=== PATIENT | male | born 1970 | race Caucasian/White ===

== ENCOUNTER 2022-12-31 13:29 | Inpatient (IN) | payer BC, MEDICAID, SELFPAY ==
[2022-12-31] VITALS (11 sets, daily range): BP systolic 105–131; BP diastolic 65–87; PULSE 108–165; RESP 16–24; TEMP 36.4–37; O2SAT 90–98; BMI 30.2
--- NOTE | ~2022-12-31 | MR_ITS ---
EXAMINATION: MR head/brain wo con MR/MR head/brain wo con FINDINGS/IMPRESSION: The ordered MRI examination could not be completed due to claustrophobia. Only the localizer, sagittal T1 FLAIR and axial DWI sequences were performed. Limited sequences demonstrate no diffusion hyperintensity to suggest acute infarct. No significant mass effect or herniation pattern. The midline structures are unremarkable. Partially imaged cervical spondylosis with bilateral facet arthropathy. The patient may be able to undergo the MRI examination at a later time after receiving pre-treatment for claustrophobia.
--- NOTE | ~2022-12-31 | CT_ITS ---
EXAMINATION: CT ANGIOGRAM OF THE CHEST WITH CONTRAST (CT PULMONARY ANGIOGRAM FOR PE) CLINICAL INFORMATION: Reason for Exam acute hypoxemic respiratory failure COMPARISON: Chest radiograph from 01/01/2023 TECHNIQUE: Prior to contrast administration, noncontrast localization images were obtained. Subsequently, multidetector volumetric imaging was performed from the thoracic inlet to below the diaphragms following the administration of 65 mL Omnipaque 350 intravenous contrast. No contrast reaction reported. Sagittal, coronal, and MIP oblique sagittal reformatted images were obtained on the CT workstation, uploaded to PACS, and reviewed. This CT examination was performed using dose optimization techniques as appropriate, variously including the following: *Automated exposure control *Adjustment of mA and/or kV according to patient size (this includes techniques or standardized protocols for targeted exams where dose is matched to indication/reason for exam; i.e. extremities or head) *Use of iterative reconstruction technique DLP: Total exam dose-length product 466 mGy-cm FINDINGS: LUNGS AND PLEURA: Smooth thickening of interlobular septa in both lungs is predominantly observed in lower lobes and consistent with interstitial inflammation and/or interstitial edema. Patchy groundglass opacity is present in the right upper lobe. Also, small focus of groundglass attenuation is present in the anterior lingula. A few small noncalcified nodules of less than 0.5 cm size are present within the left upper lobe and lingula. Based on Fleischner Society guidelines, chest CT follow-up is not recommended in a low risk patient. The main pulmonary abnormalities are in the lower lobes where findings include patchy bilateral consolidation and intermixed groundglass attenuation. There is associated thickening of bronchial barbosa and/or peribronchial interstitium. A trace left pleural effusion is present. No pneumothorax. QUALITY OF STUDY/CONTRAST BOLUS: Satisfactory. PULMONARY ARTERIES: The pulmonary arteries are normal in size. No embolic filling defects within the main, lobar or segmental vessels. OTHER CARDIOVASCULAR: The heart size is normal. No pericardial effusion. There is atherosclerotic calcification of the left anterior descending coronary artery. Mild atherosclerosis of the thoracic aorta without aneurysm or dissection. MEDIASTINUM/LOWER NECK: The esophagus and visualized portion of the thyroid gland are unremarkable. No mediastinal mass. LYMPHATICS: No pathologic sized axillary, hilar or mediastinal lymph nodes. UPPER ABDOMEN: There is hepatosplenomegaly. The liver is diffusely hypodense, consistent with steatosis or steatohepatitis. Recommend correlation with liver function tests. Adrenal glands are normal. OSSEOUS STRUCTURES: Mild levoscoliosis of the cervical and upper thoracic spine. Mild spondylosis of the thoracic spine. CT/CT angio chest PE protocol IMPRESSION: * No evidence of pulmonary embolism. * Patchy consolidation and intermixed groundglass attenuation in lower lobes is consistent with infectious/inflammatory process. Consider possibility of aspiration pneumonia. Trace left pleural effusion is present. * Smooth thickening of interlobular septa is consistent with interstitial inflammation and/or interstitial edema. * Hepatosplenomegaly and diffuse hepatic steatosis or steatohepatitis.
--- NOTE | ~2022-12-31 | XR_ITS ---
EXAMINATION: PORTABLE CHEST 1 VIEW CLINICAL INFORMATION: afib. COMPARISON: 11/07/2012. TECHNIQUE: Portable frontal view of the chest was obtained. FINDINGS: The lungs are hypoexpanded with minimal basilar atelectasis. Central vascular prominence likely related to the degree of hypoexpansion. No overt edema. No significant effusion or pneumothorax. Cardiac and mediastinal silhouettes within normal limits for the technique. No acute bony abnormality. XR/XR chest 1V IMPRESSION: Hypoexpanded with minimal basilar atelectasis. Central vascular prominence likely related to the degree of hypoexpansion.
--- NOTE | ~2022-12-31 | XR_ITS ---
EXAMINATION: XR CHEST CLINICAL INFORMATION: Hypoxia COMPARISON: Chest radiographs 12/31/2022, 11/07/2012 TECHNIQUE: Portable upright AP view of the chest was obtained. FINDINGS: There are low lung volumes with inspiration to the right posterior seventh rib. The heart is normal in size. There is no pneumothorax or pleural reaction or definite effusion. There is fullness right hilar vasculature with question of infrahilar opacity. There is no oligemia on the left. No lobar or segmental airspace consolidation. XR/XR chest 1V IMPRESSION: - Low lung volumes. - Fullness right hilar vasculature with question of right infrahilar opacity. No oligemia on left. - No lobar or segmental airspace consolidation. No pneumothorax. No effusion.
--- NOTE | ~2022-12-31 | CT_ITS ---
EXAMINATION: CT HEAD WITHOUT CONTRAST CLINICAL INFORMATION: History of fall. COMPARISON: None available. TECHNIQUE: Contiguous axial imaging was performed from the skull base to vertex without intravenous administration of contrast. This CT examination was performed using dose optimization techniques as appropriate, variously including the following: *Automated exposure control *Adjustment of mA and/or kV according to patient size (this includes techniques or standardized protocols for targeted exams where dose is matched to indication/reason for exam; i.e. extremities or head) *Use of iterative reconstruction technique DLP: 677 mGy-cm FINDINGS: The brain parenchyma has normal attenuation. The estrada-white matter differentiation is well preserved. No evidence of an acute major vascular territory infarction. No intracranial hemorrhage, extra-axial fluid collection, focal mass effect or midline shift. The ventricles have normal size and configuration; no hydrocephalus. The brainstem and cerebellum have a normal appearance. The cerebellar tonsils are in normal position. The visualized paranasal sinuses, mastoid air cells and middle ear cavities are well aerated. The orbits and globes are unremarkable. The temporomandibular joints are normal. A very small lipoma of the frontal scalp measures 0.2 cm AP. There is a small linear opacity in the right lateral scalp soft tissues (image 40, series 2). No calvarial fracture. CT/CT head/brain wo IV con IMPRESSION: * No evidence of calvarial fracture, intracranial hemorrhage or other acute intracranial pathology. * There is a small linear opacity in the right lateral scalp soft tissues, possibly representing minimal hemorrhage from trauma (image 40, series 2).
--- NOTE | ~2022-12-31 | CT_ITS ---
EXAMINATION: CT HEAD WITHOUT CONTRAST CLINICAL INFORMATION: Syncope, seizure. COMPARISON: CT head 12/31/2022. TECHNIQUE: Contiguous axial imaging was performed from the skull base to vertex without intravenous administration of contrast. This CT examination was performed using dose optimization techniques as appropriate, variously including the following: *Automated exposure control *Adjustment of mA and/or kV according to patient size (this includes techniques or standardized protocols for targeted exams where dose is matched to indication/reason for exam; i.e. extremities or head) *Use of iterative reconstruction technique DLP: 817 mGy-cm FINDINGS: There is no evidence of acute intracranial hemorrhage or edematous territorial infarction. A few foci of hypoattenuation in the periventricular and deep white matter are consistent with mild microangiopathy. De Jesus-white matter differentiation is preserved. Proportional prominence of the ventricles and sulcal spaces. No evidence for obstructive hydrocephalus. No abnormal mass effect or midline shift. No extra-axial fluid collections. No acute soft tissue or osseous abnormalities. Partial opacification of several ethmoid air cells and moderate mucosal thickening of the sphenoidal sinuses. The mastoids and middle ear cavities are clear. CT/CT head/brain wo IV con IMPRESSION: No evidence of acute intracranial hemorrhage or edematous territorial infarction. Paranasal sinus disease, correlate clinically.
--- NOTE | 2022-12-31 13:31 | ECG_ITS ---
Test Reason : od Blood Pressure : / mmHG Vent. Rate : 143 BPM Atrial Rate : 000 BPM P-R Int : 000 ms QRS Dur : 100 ms QT Int : 310 ms P-R-T Axes : 000 083 -32 degrees QTc Int : 478 ms Atrial fibrillation with rapid ventricular response Nonspecific ST abnormality Abnormal QRS-T angle, consider primary T wave abnormality Abnormal ECG When compared with ECG of 07-NOV-2012 12:15, Atrial fibrillation has replaced Sinus rhythm Vent. rate has increased BY 63 BPM Referred By: Generic ED Physician Electronically Signed By:Melecio Cesar
--- NOTE | 2022-12-31 13:39 | ED.AMS ---
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 his walked about few yd outside the house was found by bystanders unresponsive side of the road CPR started 8 mg of Narcan given and patient woke up agitated and confused denies any use of drugs cardiac monitor technician showed AFib with heart rate in 140s patient denies any chest pain unknown head injury Related Data Home Medications Medication Instructions Recorded Confirmed fenofibrate 54 mg tablet 54 mg PO DAILY 12/31/22 12/31/22 metformin 1,000 mg tablet 1,000 mg PO BID 12/31/22 12/31/22 naproxen sodium 220 mg tablet 440 mg PO BID PRN Pain 12/31/22 12/31/22 (Aleve) propranolol 10 mg tablet 10 mg PO BID PRN chest pain / 12/31/22 12/31/22 anxiety rosuvastatin 20 mg tablet 20 mg PO BEDTIME 12/31/22 12/31/22 sertraline 50 mg tablet 50 mg PO DAILY 12/31/22 12/31/22 testosterone cypionate 200 mg/mL 100 mg IM QWEEK 12/31/22 12/31/22 intramuscular kit Allergies Allergy/AdvReac Type Severity Reaction Status Date / Time No Known Allergies Allergy Verified 12/31/22 13:38 [No Known Allergies*] Review of Systems Review of Systems: Yes Unobtainable due to mental status PMFSH Social History Social History Alcohol intake: never Smoked in Last 30 Days: No Substance Use Type: Former Substance User Advance Directives: No Advance Directives Information Provided: No Physical Exam ED Vital Signs: Vital Signs - 24 hr 12/31/22 13:38 12/31/22 14:00 12/31/22 15:17 Temperature 98.6 F 97.6 F Pulse Rate 143 H 108 H 117 H Respiratory Rate 20 22 H 20 Blood Pressure 127/85 118/75 121/78 Pulse Oximetry 98 94 98 Oxygen Delivery Method Room Air Nasal Cannula Nasal Cannula Oxygen Flow Rate 2 4 12/31/22 15:49 Temperature Pulse Rate 137 H Respiratory Rate 22 H Blood Pressure Pulse Oximetry Oxygen Delivery Method Oxygen Flow Rate BMI result Body Mass Index 30.2 Appearance: Alert. Oriented X3. No acute distress. Eyes: PERRLA, No Nystagmus HEENT: Pharynx normal. Oral Mucosa moist ATNC Neck: Normal inspection. Neck supple. CVS: Tachycardic irregularly irregular no murmur or rub. Pulses normal. Respiratory: No respiratory distress. Equal air entry bilateral, no wheezing/rales/rhonchi Abdomen: Soft and nontender. Bowel sounds are present, no mass palpable, no CVA tenderness Skin: Skin warm and dry. Normal skin color. Normal skin turgor. Extremities: No lower extremity edema. No calf tenderness Neuro: Oriented X 3. No motor deficit. No sensory deficit.No cerebellar signs , cranial nerves II-XII intact Medications Administered Generic Name Dose Route Start Last Admin Trade Name Freq PRN Reason Stop Dose Admin Diltiazem HCl 125 mg/ Sodium 125 mls @ 0 mls/hr 12/31/22 15:30 12/31/22 16:10 Chloride IVCONT 10 mg/hr .Q0M KRISTAL 10 mls/hr Administration Protocol Per Protocol Lactated Ringer's 1,000 mls @ 80 mls/hr 12/31/22 16:00 12/31/22 16:10 Lr IVCONT 80 mls/hr .[id number] KRISTAL Administration Sodium Chloride 3 ml 12/31/22 16:00 12/31/22 16:11 0.9 % Sodium Chloride Flush 3 Ml Syringe IVFLUSH 3 ml QSHIFT KRISTAL Administration Discontinued Medications Generic Name Dose Route Start Last Admin Trade Name Freq PRN Reason Stop Dose Admin Diltiazem HCl 20 mg 12/31/22 13:44 12/31/22 14:14 Diltiazem Hcl 50 Mg/10 Ml Vial IVPUSH 12/31/22 13:45 20 mg STAT STA Administration Sodium Chloride 1,000 mls @ 999 mls/hr 12/31/22 13:41 12/31/22 15:09 Ns IV 12/31/22 14:41 Infused .Q1H1M ONE Infusion Medical Decision Making Medical Decision Making MDM Narrative: Patient with new onset of AFib with rapid ventricular rate versus substance abuse came here for occult loss of consciousness likely substance abuse responded to Narcan. Patient urine drug screen is pending. Awaiting for CT scan of the head. cardiac monitor technician showed AFib partially responded to IV Cardizem and started on Cardizem drip pain will admit patient to hospitalist service patient Dr. Ayers aware of checking CT scan of the head and urine drug screen patient does have chads score of 2 with remote history of coronary artery disease will start on Eliquis CT scan the head seen by myself was negative for bleed Differential Diagnosis Opiate abuse /acute coronary syndrome/acute PE Consult Healthcare Provider Management of the patient was discussed with: Hospitalist Lab Data [facility] Lab Attestation statement: I reviewed the patient's lab results. 12/31/22 13:59 12/31/22 13:59 Labs: Lab Results 12/31/22 12/31/22 12/31/22 Range/Units 13:59 13:59 13:59 WBC 9.7 (4.8-10.8) X10*3/uL RBC 4.78 (4.60-5.80) X10*6/uL Hgb 15.1 (14.0-18.0) g/dl Hct 41.4 L (42.0-52.0) % MCV 86.6 (80.0-98.0) fL MCH 31.6 (27.0-33.0) pg MCHC 36.5 H (31.0-36.0) g/dl RDW 12.1 (11.0-16.0) % Plt Count 250 (160-400) X10*3/uL MPV 10.4 (9.4-12.4) fL Immature Gran % (Auto) 1.1 H (0.0-0.4) % Neut % (Auto) 57.3 (45-73) % Lymph % (Auto) 32.4 (20-40) % [place] % (Auto) 7.2 (2-11) % Eos % (Auto) 1.4 (0-4) % Baso % (Auto) 0.6 (0-2) % Lymph # (Auto) 3.2 (1.2-4.9) X10*3/uL [place] # (Auto) 0.7 (0.1-1.2) X10*3/uL Eos # (Auto) 0.1 (0.0-0.4) X10*3/uL Baso # (Auto) 0.1 (0.0-0.2) X10*3/uL Abs Immat Gran (auto) 0.11 H (0.00-0.03) X10*3/uL Absolute Neuts (auto) 5.6 (2.0-8.3) x10*3/uL Absolute Nucleated RBC 0.000 (0.0-0.012) X10*3/uL Nucleated RBC % (auto) 0.0 (0.0-0.2) /100WBC PT 10.0 (10.0-13.1) SEC INR 0.9 (0.9-1.1) APTT 25.1 L (26.0-36.4) SEC Sodium 139 (135-145) mmol/L Potassium 3.6 (3.3-5.1) mmol/L Chloride 102 (96-108) mmol/L Carbon Dioxide 21 L (22-29) mmol/L Anion Gap 20 (12-20) BUN 19 H (9-16) mg/dL Creatinine 1.00 (0.5-1.4) mg/dL Estim Creat Clear Calc 96.1 Estimated GFR > 60 Random Glucose 270 H (60-115) mg/dL Calcium 9.2 (8.4-10.2) mg/dL Magnesium 2.0 (1.6-2.6) mg/dL Total Bilirubin 0.7 (0.0-1.0) mg/dL AST 214 H (5-37) U/L ALT 94 H (0-40) U/L Alkaline Phosphatase 65 (39-117) U/L Troponin I High Sens (<3.5-35.0) ng/L Total Protein 8.2 H (6.5-8.0) g/dL Albumin 4.4 (3.5-5.0) g/dL Urine Opiates Screen (Not Detect) Urine Fentanyl Screen (Not Detect) Ur Barbiturates Screen (Not Detect) Ur Phencyclidine Scrn (Not Detect) Ur Amphetamines Screen (Not Detect) U Benzodiazepines Scrn (Not Detect) Urine Cocaine Screen (Not Detect) U Marijuana (THC) Screen (Not Detect) Ethyl Alcohol < 10 mg/dL 12/31/22 12/31/22 Range/Units 13:59 15:19 WBC (4.8-10.8) X10*3/uL RBC (4.60-5.80) X10*6/uL Hgb (14.0-18.0) g/dl Hct (42.0-52.0) % MCV (80.0-98.0) fL MCH (27.0-33.0) pg MCHC (31.0-36.0) g/dl RDW (11.0-16.0) % Plt Count (160-400) X10*3/uL MPV (9.4-12.4) fL Immature Gran % (Auto) (0.0-0.4) % Neut % (Auto) (45-73) % Lymph % (Auto) (20-40) % [place] % (Auto) (2-11) % Eos % (Auto) (0-4) % Baso % (Auto) (0-2) % Lymph # (Auto) (1.2-4.9) X10*3/uL [place] # (Auto) (0.1-1.2) X10*3/uL Eos # (Auto) (0.0-0.4) X10*3/uL Baso # (Auto) (0.0-0.2) X10*3/uL Abs Immat Gran (auto) (0.00-0.03) X10*3/uL Absolute Neuts (auto) (2.0-8.3) x10*3/uL Absolute Nucleated RBC (0.0-0.012) X10*3/uL Nucleated RBC % (auto) (0.0-0.2) /100WBC PT (10.0-13.1) SEC INR (0.9-1.1) APTT (26.0-36.4) SEC Sodium (135-145) mmol/L Potassium (3.3-5.1) mmol/L Chloride (96-108) mmol/L Carbon Dioxide (22-29) mmol/L Anion Gap (12-20) BUN (9-16) mg/dL Creatinine (0.5-1.4) mg/dL Estim Creat Clear Calc Estimated GFR Random Glucose (60-115) mg/dL Calcium (8.4-10.2) mg/dL Magnesium (1.6-2.6) mg/dL Total Bilirubin (0.0-1.0) mg/dL AST (5-37) U/L ALT (0-40) U/L Alkaline Phosphatase (39-117) U/L Troponin I High Sens < 2.7 (<3.5-35.0) ng/L Total Protein (6.5-8.0) g/dL Albumin (3.5-5.0) g/dL Urine Opiates Screen POSITIVE H (Not Detect) Urine Fentanyl Screen POSITIVE H (Not Detect) Ur Barbiturates Screen Not Detected (Not Detect) Ur Phencyclidine Scrn Not Detected (Not Detect) Ur Amphetamines Screen Not Detected (Not Detect) U Benzodiazepines Scrn Not Detected (Not Detect) Urine Cocaine Screen Not Detected (Not Detect) U Marijuana (THC) Screen POSITIVE H (Not Detect) Ethyl Alcohol mg/dL Independent Interpretation I performed an independent interpretation of an: EKG Interpretation: Atrial fibrillation with rapid ventricular rate of [address]-T changes no acute ischemia no previous EKG to compare Discharge Plan Discharge Clinical Impression: Drug overdose, Atrial fibrillation with rapid ventricular response Patient Disposition: Admitted As Inpatient
[2022-12-31 14:03] LABS: MANUAL DIFF FLAG NO
[2022-12-31 14:05] LABS: Basophils Absolute Auto 0.1 X10*3/uL (0.0-0.2); Basophils Percent Auto 0.6 % (0-2); Eosinophils Absolute Auto 0.1 X10*3/uL (0.0-0.4); Eosinophils Percent Auto 1.4 % (0-4); Hematocrit 41.4 % (42.0-52.0); Hemoglobin 15.1 g/dl (14.0-18.0); Imm Gran Abs Auto 0.11 X10*3/uL (0.00-0.03); Imm Gran Pct Auto 1.1 % (0.0-0.4); Lymphocytes Absolute Auto 3.2 X10*3/uL (1.2-4.9); Lymphocytes Percent Auto 32.4 % (20-40); Mean Corpuscular HGB Conc 36.5 g/dl (31.0-36.0); Mean Corpuscular Hemoglobin 31.6 pg (27.0-33.0); Mean Corpuscular Volume 86.6 fL (80.0-98.0); Mean Platelet Volume 10.4 fL (9.4-12.4); Monocytes Absolute Auto 0.7 X10*3/uL (0.1-1.2); Monocytes Percent Auto 7.2 % (2-11); Neutrophils Absolute Auto 5.6 x10*3/uL (2.0-8.3); Neutrophils Percent Auto 57.3 % (45-73); Platelet Count 250 X10*3/uL (160-400); Red Blood Count 4.78 X10*6/uL (4.60-5.80); Red Cell Distribution Width 12.1 % (11.0-16.0); White Blood Count 9.7 X10*3/uL (4.8-10.8)
[2022-12-31] MEDS: 0.9 % Sodium Chloride 1,000 ML 999 ML IV (14:08)
[2022-12-31 14:10] LABS: INTERNATIONAL NORM RATIO 0.9 (0.9-1.1)
[2022-12-31 14:12] LABS: Partial Thromboplastin Time 25.1 SEC (26.0-36.4)
[2022-12-31] MEDS: dilTIAZem HCL 50 MG/10 ML VIAL 20 MG IVPUSH (14:14)
--- NOTE | 2022-12-31 14:25 | PC.NURSE ---
patient wakes to verbal stimulus, denying si/hi, pt denying drug/etoh use, finance advisor applied afib on monitor, ekg performed, iv inserted, labs drawn, pt vomited x2, pt diaphoretic as well, family at bedside, call guerrero within reach, will continue to monitor.
[2022-12-31 14:27] LABS: Alanine Aminotransferase 94 U/L (0-40); Albumin Level 4.4 g/dL (3.5-5.0); Alkaline Phosphatase 65 U/L (39-117); Anion Gap 20 (12-20); Aspartate Amino Transferase 214 U/L (5-37); Bilirubin Total 0.7 mg/dL (0.0-1.0); Blood Urea Nitrogen 19 mg/dL (9-16); Calcium 9.2 mg/dL (8.4-10.2); Carbon Dioxide 21 mmol/L (22-29); Chloride 102 mmol/L (96-108); Creatinine Clr Calc Pharmacy 96.1; Estimated Glomerular Filt Rate > 60; Ethanol < 10 mg/dL; Glucose Random 270 mg/dL (60-115); Potassium 3.6 mmol/L (3.3-5.1); Sodium 139 mmol/L (135-145); Total Protein 8.2 g/dL (6.5-8.0)
[2022-12-31 14:30] LABS: Troponin-I High Sensitivity < 2.7 ng/L (<3.5-35.0)
--- NOTE | 2022-12-31 14:43 | PC.NURSE ---
pt to radiology
--- NOTE | 2022-12-31 15:15 | PC.NURSE ---
straight cath performed, urine being sent by tech
--- NOTE | 2022-12-31 15:22 | MHC.EDTECH ---
THIS PCT ASSUMED CARE OF PT AT 1500 ,VITALS SIGN TAKEN ,PT SLEEPING ,URINE SAMPLE SENT TO LAB ,PT AND MOM AT BEDSIDE .
--- NOTE | 2022-12-31 15:57 | PHA.MEDREC ---
Pharmacy Consult ? Medication Reconciliation Pharmacy has completed the medication reconciliation. Spoke to patient's to confirm meds. states patient takes testosterone 200mg/mL 0.5 mL weekly, and pharmacy confirms. Also states that patient was on ASA 81mg 2-3 months ago, but has not been prescribed it since and therefore has not been taking it.
[2022-12-31 16:07] LABS: Amphetamine Screen Urine Not Detected (Not Detect); Barbiturates, Urine Not Detected (Not Detect); Benzodiazepines Screen Urine Not Detected (Not Detect); Cannabinoid Screen Urine POSITIVE (Not Detect); Cocaine Screen Urine Not Detected (Not Detect); Fentanyl, urine POSITIVE (Not Detect); Opiate Screen Urine POSITIVE (Not Detect); Phencyclidine Screen Urine Not Detected (Not Detect)
[2022-12-31] MEDS: Lactated Ringers 1,000 ML 80 ML IVCONT (16:10)
[2022-12-31] MEDS: dilTIAZem HCL 125 MG in 0.9 % Sodium Chloride 100 ML 10 MG IVCONT (16:10)
--- NOTE | 2022-12-31 16:10 | ECG_ITS ---
Test Reason : CHEST PAIN Blood Pressure : / mmHG Vent. Rate : 128 BPM Atrial Rate : 000 BPM P-R Int : 000 ms QRS Dur : 086 ms QT Int : 320 ms P-R-T Axes : 000 099 -23 degrees QTc Int : 467 ms Atrial fibrillation with rapid ventricular response Rightward axis Abnormal QRS-T angle, consider primary T wave abnormality Abnormal ECG When compared with ECG of 31-DEC-2022 13:38, No significant change was found Referred By: Yudi Mendez Electronically Signed By:Melecio Cesar
[2022-12-31] MEDS: 0.9 % Sodium Chloride Flush 3 ML SYRINGE IVFLUSH (16:11)
--- NOTE | 2022-12-31 16:15 | PC.NURSE ---
second iv started, repeat ekg performed- pt still afib on monitor, cardizem drip started at 10, LR started per order, will continue to monitor.
[2022-12-31 16:24] LABS: Thyroid Stimulating Hormone 4.61 uIU/mL (0.32-4.0)
--- NOTE | 2022-12-31 16:32 | PM.IMHP ---
History of Present Illness Date of Service: 12/31/22 Attending physician on admission: Remy Judge Chief Complaint: Unresponsive episode. Patient seems generalized weak and somewhat confused unable to provide much history, information was taken from his . 52-year-old male IV drug use in the past-as per 7year was clean, history of hypercholesteremia, diabetes, CAD-he came from [place] for a wedding in his family, as per today she went for hair dressing and she called him to pick her up. He said to his is in bathroom and he is coming soon. After some time waiting the called back but nobody picked up so she talked to her kids -they told her that they are waiting for their father in the car outside their apartment. Subsequently patient was found outside the apartment by bystanders unresponsive-received CPR unclear duration, also received 8 mg of Narcan-subsequently patient woke up got agitated and confused, as per the family there is the needle kirk in the left antecubital area which was not there before. In the hospital patient was found to have AFib with RVR. Patient with currently seems weak and confused unable to give history, easily awake. Follows simple commands EKG, troponin, chest x-ray and CT head seems negative( has some scalp up mild hematoma question). In ED patient received diltiazem drip, also Eliquis ordered in ed. also received IV fluid Urine drug screen: Positive for fentanyl, opioids, marijuana Patient could able to say only soreness in the muscle area of the chest both sides, otherwise resting comfortably, but slightly sleepy. We have added additional dose of Narcan. Review of Systems Review of Systems: as above. [facility] Social History (Updated 12/31/22 @ 16:46 by Remy Judge MD) Household Members: Spouse Alcohol intake: former Patient Tobacco Use Status: Former Tobacco user Smoked in Last 30 Days: No Substance Use Type: Former Substance User Advance Directives: No Advance Directives Information Provided: No Meds Allergies Allergy/AdvReac Type Severity Reaction Status Date / Time No Known Allergies Allergy Verified 12/31/22 13:38 [No Known Allergies*] Active Medications: Current Medications Fenofibrate (Fenofibrate 54 Mg Tablet) 54 mg PO DAILY KRISTAL Diltiazem HCl 125 mg/ Sodium (Chloride) 125 mls @ 0 mls/hr IVCONT .Q0M [facility]; Protocol Last Admin: 12/31/22 16:10 Dose: 10 mg/hr, 10 mls/hr Lactated Ringer's (Lr) 1,000 mls @ 80 mls/hr IVCONT .[id number] [facility] Last Admin: 12/31/22 16:10 Dose: 80 mls/hr Pharmacy Consult (Consult Rx Perform Med Rec) 1 each MISCELLANE ONCE PRN PRN Reason: Consult order Sertraline HCl (Sertraline Hcl 50 Mg Tablet) 50 mg PO DAILY [facility] Sodium Chloride (0.9 % Sodium Chloride Flush 3 Ml Syringe) 3 ml IVFLUSH QSHIFT [facility] Last Admin: 12/31/22 16:11 Dose: 3 ml Home Medications Medication Instructions Recorded Confirmed Last Taken Type fenofibrate 54 mg tablet 54 mg PO DAILY 12/31/22 12/31/22 12/30/22 History metformin 1,000 mg tablet 1,000 mg PO BID 12/31/22 12/31/22 12/30/22 History naproxen sodium 220 mg tablet 440 mg PO BID PRN Pain 12/31/22 12/31/22 Unknown History (Aleve) propranolol 10 mg tablet 10 mg PO BID PRN chest pain / 12/31/22 12/31/22 12/30/22 History anxiety rosuvastatin 20 mg tablet 20 mg PO BEDTIME 12/31/22 12/31/22 12/30/22 History sertraline 50 mg tablet 50 mg PO DAILY 12/31/22 12/31/22 12/30/22 History testosterone cypionate 200 mg/mL 100 mg IM QWEEK 12/31/22 12/31/22 12/28/22 History intramuscular kit Physical Exam Vital Signs and Narrative: Vital Signs: Last Vital Signs Temp 97.6 F 12/31/22 15:17 Pulse 137 H 12/31/22 15:49 Resp 22 H 12/31/22 15:49 BP 121/78 12/31/22 15:17 Pulse Ox 98 12/31/22 15:17 O2 Del Method Nasal Cannula 12/31/22 15:17 O2 Flow Rate 4 12/31/22 15:17 BMI result Body Mass Index 30.2 Appearance: awake ,plesantly confused ,follows simple commands Eyes: Pupils small ,reactive.? Sclera nonicteric.? ENT: Pharynx normal.? Moist mucous membranes. cvs: rrr, [id number] , no murmur res: clear to auscultation ,no rhonchii or wheezing abd: no rebound or guarding ,nt, bs present. ext pulses present , no cyanosis . neuro: axo3 , nonfocal. Results Labs 12/31/22 13:59 12/31/22 13:59 Labs: Laboratory Results - last 24 hr 12/31/22 12/31/22 12/31/22 13:59 13:59 13:59 MCV 86.6 MCH 31.6 MCHC 36.5 H RDW 12.1 Plt Count 250 MPV 10.4 Immature Gran % (Auto) 1.1 H Neut % (Auto) 57.3 Lymph % (Auto) 32.4 [place] % (Auto) 7.2 Eos % (Auto) 1.4 Baso % (Auto) 0.6 Lymph # (Auto) 3.2 [place] # (Auto) 0.7 Eos # (Auto) 0.1 Baso # (Auto) 0.1 Abs Immat Gran (auto) 0.11 H Absolute Neuts (auto) 5.6 Absolute Nucleated RBC 0.000 Nucleated RBC % (auto) 0.0 PT 10.0 INR 0.9 APTT 25.1 L Anion Gap 20 Estim Creat Clear Calc 96.1 Estimated GFR > 60 Random Glucose 270 H Calcium 9.2 Magnesium 2.0 Total Bilirubin 0.7 AST 214 H ALT 94 H Alkaline Phosphatase 65 Troponin I High Sens Total Protein 8.2 H Albumin 4.4 TSH 4.61 H Urine Opiates Screen Urine Fentanyl Screen Ur Barbiturates Screen Ur Phencyclidine Scrn Ur Amphetamines Screen U Benzodiazepines Scrn Urine Cocaine Screen U Marijuana (THC) Screen Ethyl Alcohol < 10 12/31/22 12/31/22 13:59 15:19 MCV MCH MCHC RDW Plt Count MPV Immature Gran % (Auto) Neut % (Auto) Lymph % (Auto) [place] % (Auto) Eos % (Auto) Baso % (Auto) Lymph # (Auto) [place] # (Auto) Eos # (Auto) Baso # (Auto) Abs Immat Gran (auto) Absolute Neuts (auto) Absolute Nucleated RBC Nucleated RBC % (auto) PT INR APTT Anion Gap Estim Creat Clear Calc Estimated GFR Random Glucose Calcium Magnesium Total Bilirubin AST ALT Alkaline Phosphatase Troponin I High Sens < 2.7 Total Protein Albumin TSH Urine Opiates Screen POSITIVE H Urine Fentanyl Screen POSITIVE H Ur Barbiturates Screen Not Detected Ur Phencyclidine Scrn Not Detected Ur Amphetamines Screen Not Detected U Benzodiazepines Scrn Not Detected Urine Cocaine Screen Not Detected U Marijuana (THC) Screen POSITIVE H Ethyl Alcohol ECG Attestation: I personally reviewed and interpreted this ECG as follows: (afib rvr ) Imaging Radiologist's Impressions: Impressions Chest X-Ray 12/31/22 14:17 IMPRESSION: Hypoexpanded with minimal basilar atelectasis. Central vascular prominence likely related to the degree of hypoexpansion. Head CT 12/31/22 15:05 IMPRESSION: * No evidence of calvarial fracture, intracranial hemorrhage or other acute intracranial pathology. * There is a small linear opacity in the right lateral scalp soft tissues, possibly representing minimal hemorrhage from trauma (image 40, series 2). Assessment and Plan (1) Drug overdose: Status: Acute (2) Atrial fibrillation with rapid ventricular response: Status: Acute (3) Elevated liver function tests: Status: Acute (4) Diabetes: Status: Acute Plan 52-year-old male IV drug use in the past-as per 7year was clean, history of hypercholesteremia, diabetes, CAD: Came with unresponsive episode-likely related to drug intoxication as above. 1.unresponsive episode-likely related to drug intoxication as above. as per multiple family member have drug use hx. Toxic metabolic encephalopathy secondary to drug intoxication drug screen positive -opioid, fentanyl, marijuana. abg: seems ph 7.3 ( boderline ),cxr seems fine ,ct neg -except mild scalp hemtoma currently easily awake ,knows his name and his , follows simple commands, intermittent somewhat sleepy given another narcan dose,Continue IV fluid, neuro checks, if needed prn narcan use,moniter sats and clinically . Repeat Narcan dose if needed, also VBG if needed 2.EKG's shows AFib with RVR: previous ekg was nsr in 2012. moniter on tele [id number] has hx of dm,cad chadvasc 2 ct head neg except small scalp hematoma Patient is already on Cardizem drip, Added Lovenox 3. Mild elevated borderline TSH:4.61 added free t4and t3. 4. mild elevated lft's-? drug use we daniel repeat in am ,if still elevated -may need further workup hold statin and meds interfer with liver function 5.HLp: Hold statin due to elevated lft's. 6: dm : fs with coverage avid coverage below 200 mg/dl. 7. anxiety: continue sertraline. DVT prophylaxis: SubQ Lovenox Patient will benefit from to midnight stays-toxic metabolic encephalopathy secondary to considering drug intoxication, AFib with RVR-need IV Cardizem drip, cardiology evaluation and workup. Above management discussed with the patient's in detail length, she understand and in agreement with above plan, time spent 50 minute. Time Spent With Patient Time: Total time managing care of this patient today ____ minutes. Quality Stroke Does the patient have a stroke diagnosis?: No VTE Prior VTE?: No VTE Risk Level:: Medical - moderate - high VTE Device Contraindication: N/A - Device Ordered VTE Drug Contraindication: N/A - Med Ordered
--- NOTE | 2022-12-31 16:34 | MHC.EDTECH ---
repeated ekg taken and was read by provider ,repeated trop taken and was sent to lab ,jose solitario is aware of pt low low o2 sat and high hr .
[2022-12-31] MEDS: ondansetron HCL 4 MG/2 ML VIAL IVPUSH ×2 (16:41→22:03)
[2022-12-31] MEDS: Naloxone HCl Nasal 4 MG SPRAY NOSTRILALT (16:41)
--- NOTE | 2022-12-31 16:42 | PC.NURSE ---
pt sleeping, woke with dry heaves, pt given zofran per order, cardizem titrated up to 15, ivf running per order, pt given another dose of narcan, RT at bedside changing over to 10L [place], media monitor afib 129-130, will continue to monitor.
[2022-12-31 16:52] LABS: ABG Base Excess -3.7 mmol/L; ABG HCO3 22 mmol/L (22-26); ABG pCO2 44 mmHg (32-45); ABG pO2 70 mmHg (83-108)
[2022-12-31 16:58] LABS: ABG Refer to POC result
[2022-12-31 17:03] LABS: Troponin-I High Sensitivity 22.1 ng/L (<3.5-35.0)
[2022-12-31 17:27] LABS: Bilirubin Direct 0.1 mg/dL (0.0-0.5)
[2022-12-31 17:27] LABS: Color Urine Yellow; Glucose Urine UA >=1000 mg/dL (Negative); Leukocyte Esterase Urine Negative (Negative); Nitrite Urine Negative (Negative); PH 5.5 (5.0-9.0); Specific Gravity - Urine 1.025 (1.005-1.025); UMIC TRIGGER UACC YES; Urine Blood Trace (Negative); Urine Ketones Negative (Negative); Urine Protein 30 (1+) mg/dL (Neg-Trace)
[2022-12-31 17:32] LABS: Bacteria Urine None Seen (None Seen); Hyaline Casts Urine 0-2 /LPF (0-2); Squamous Epithelial Cell Urine 0-2 /HPF (0-2); WBC Urine 0-5 /HPF (0-5)
[2022-12-31 17:35] LABS: Appearance Urine Clear
[2022-12-31 17:40] LABS: Free T4 (Free Thyroxine) 0.74 ng/dL (0.71-1.85)
[2022-12-31] MEDS: Enoxaparin Sodium 100 MG/ML SYRINGE 90 MG SUBCUT (17:51)
--- NOTE | 2022-12-31 17:53 | PC.NURSE ---
pt sleeping, wakes to verbal stimulus, youth nutritional monitor afib 120s-130s, Pt on [place] @12L, ivf running per order, cardizem at 15, vitals otherwise stable, call guerrero within reach, will continue to monitor.
--- NOTE | 2022-12-31 18:58 | MHC.EDTECH ---
PT AWAKE AND ALERT ,ASKING FOR A DRINK ,SHAD VIEYRA IS AWAKE .
[2022-12-31 19:41] LABS: Glucose, Whole Blood 225 mg/dL (60-115)
--- NOTE | 2022-12-31 19:49 | PC.NURSE ---
patient report was given to the oncoming nurse her name was Shawna patient will be transported with safety being maintained
[2023-01-01] VITALS (7 sets, daily range): BP systolic 113–163; BP diastolic 64–85; PULSE 82–123; RESP 16–19; TEMP 36.8–37.4; O2SAT 92–95
[2023-01-01] MEDS: dilTIAZem HCL 125 MG in 0.9 % Sodium Chloride 100 ML 15 MG IVCONT (00:47)
[2023-01-01] MEDS: Prochlorperazine Edisylate 10 MG/2 ML VIAL 5 MG IVPUSH (00:47)
[2023-01-01] MEDS: Lactated Ringers 1,000 ML 80 ML IVCONT ×2 (04:45→17:05)
[2023-01-01 06:55] LABS: Alanine Aminotransferase 79 U/L (0-40); Albumin Level 4.2 g/dL (3.5-5.0); Alkaline Phosphatase 47 U/L (39-117); Anion Gap 14 (12-20); Aspartate Amino Transferase 80 U/L (5-37); Bilirubin Total 1.1 mg/dL (0.0-1.0); Blood Urea Nitrogen 17 mg/dL (9-16); Calcium 8.8 mg/dL (8.4-10.2); Carbon Dioxide 25 mmol/L (22-29); Chloride 103 mmol/L (96-108); Creatinine Clr Calc Pharmacy 100.1; Estimated Glomerular Filt Rate > 60; Glucose Random 203 mg/dL (60-115); Sodium 138 mmol/L (135-145)
--- NOTE | 2023-01-01 07:00 | CA_ITS ---
Transthoracic Echocardiogram Patient (Last, First, Middle): Aj Freeman, Gender: Male Date of : 1970 Age: 52 Procedure Date: 01/01/2023 Procedure Type: Transthoracic [place]ogram [place] [facility] [place] 175.26 cm Weight: 92.53 kg BSA: 2.08 m2 Heart Rate: 87 bpm BP: 113 / 64 mmHg [employer]: Referring MD: Remy Judge MD Symptoms: afib Study Quality: Adequate ECG Rhythm: Sinus Conclusions: - Normal left ventricular size, thickness, systolic function, and wall motion. The visually estimated ejection fraction is between 60-65%. Diastolic function is normal for age. - Normal right ventricular cavity size and systolic function. - Moderately elevated right atrial pressure. There is no evidence of pulmonary hypertension. Findings Left Ventricle Normal left ventricular size, thickness, systolic function, and wall motion. The visually estimated ejection fraction is between 60-65%. Diastolic function is normal for age. Right Ventricle Normal right ventricular cavity size and systolic function. Atria The left atrium is normal in size. Aortic Valve Normal aortic valve structure and function. There is no aortic valve stenosis. There is trace (trivial) aortic valve regurgitation. Mitral Valve Normal mitral valve structure and function. There is trace mitral valve regurgitation. There is no mitral valve stenosis. Pulmonic Valve Normal pulmonic valve structure and function. There is trace pulmonic valve regurgitation. Tricuspid Valve Normal tricuspid valve structure and function. There is trace tricuspid valve regurgitation. Moderately elevated right atrial pressure. There is no evidence of pulmonary hypertension. Great Vessels All visible segments of the aorta are normal in size. The visualized portions of the pulmonary artery and branches are normal. Venous The inferior vena cava is dilated and collapses less than 50% with inspiration. Pericardium/Pleural There is no evidence of pericardial effusion. Prior Study Comparison No prior study available for comparison. Measurements 2D Linear Measurements IVSd: 1.08 0.6-0.9/0.6-1.0 cm LVIDd: 4.52 3.9-5.3/4.2-5.9 cm LVIDd Index: 2.17 2.4-3.2/2.2-3.1 cm/m2 LVIDs: 2.91 2.0-3.6 cm LVPWd: 1.07 0.7-1.1 cm LA Diam: 3.70 2.7-3.8/3.0-4.0 cm LAIDs Index: 1.78 1.5-2.3 cm/m2 LV Mass: 212.57 67-162/88-224 g LV Mass Index: 102.20 43-95/49-115 g/m2 LVOT Diam: 2.20 3.0+(-)1.3 cm Mitral Valve MV Pk E: 0.91 MV PK A: 1.08 MV Decel Time: 107.00 E/A: 0.80 E'Lateral: 9.14 E'Medial: 9.36 E/E' Med: 9.80 E/E' Lat: 10.00 PHT: 31.00 MVA PHT: 7.10 Decel Bond: 8.56 Aortic Valve AoV Pk Benjamin: 1.48 AoV Mn Benjamin: 0.96 AoV VTI: 0.27 AoV Pk Grad: 9.00 Aov Mn Grad: 4.00 CALISTA Cont.VTI: 2.36 LVOT LVOT Pk Benjamin: 0.97 LVOT Mn Benjamin: 0.61 LVOT VTI: 0.17 LVOT Pk Grad: 4.00 LVOT Mn Grad: 2.00 LVOT Diam: 2.20 LVOT Area: 3.80 Diastolic Function MV Pk E: 0.91 MV Pk A: 1.08 E/A: 0.80 E'Medial: 9.36 E/E' Med: 9.80 E' Laterial: 9.14 E/E' Lat: 10.00 Right Ventricle TAPSE (mm): 23.90 TVS' Benjamin: 12.80 Tricuspid Valve TR Pk Benjamin: 2.26 TR Pk Grad: 20.00 RA Press: 15.00 RVSP: 35.00 Great Vessels Aorta Sinus of Valsalva: 3.30 2.0-3.5 cm Ao Asc: 2.80 2.1-3.4 cm Pulmonary Valve PV Pk Benjamin: 0.97 Peak PV Grad: 4.00 Updated in Other Vendor System with Status of Final Melecio Cesar MD electronically signed on 01/02/2023 3:37:11 PM with status of Final
[2023-01-01] MEDS: Enoxaparin Sodium 100 MG/ML SYRINGE 90 MG SUBCUT ×2 (07:22→16:57)
[2023-01-01 07:28] LABS: Glucose, Whole Blood 188 mg/dL (60-115)
[2023-01-01] MEDS: Sertraline HCL 50 MG TABLET PO (08:32)
[2023-01-01] MEDS: Fenofibrate 54 MG TABLET PO (08:32)
--- NOTE | 2023-01-01 08:55 | MHC.CM.PN ---
CM MET WITH PT AT BEDSIDE. PT SOMEWHAT SLOW TO RESPOND AND NOT WILLING TO ANSWER SOME OF CM QUESTIONS. PT RESIDES IN [facility] BUT IS STAYING IN [place] CURRENTLY. 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 [employer] BUT UNSURE HOW MANY X'S. NO PCP NO HCP (DECLINES) DP: HOME/TO STAY LOCALLY FOR NOW, NO SERVICES ANTICIPATED. PT STATES HE HAS A RIDE ON DC. CM WILL CONTINUE TO FOLLOW FOR DC PLAN/NEEDS.
--- NOTE | 2023-01-01 09:08 | HO.ADDICT_ITS ---
History of Present Illness Date of Service: 01/01/2023 Chief Complaint: Unresponsive episode, drug overdose Reason for Consult: overdose HPI Narrative: Patient is a 52 year old male curreny medically admitted following opioid overdose requiring narcan and AFIB with RVR. Per chart review, patient was visiting from [place] for a wedding. This senior writer and manager recovery met with patient in room 482. Patient awake, alert, however minimally involved in interview. Denies any ongoing opioid use. Denies withdrawal sx. Reports that use was a one time thing. Overall guarded with poor eye contact and minimal responses. Declines resources. Declines to continue to interview. Encouraged patient to request to speak to our team should he change his mind, patient verbalized understanding. Review of Systems Constitutional: Reports as per HPI and Reports headache(s) Reports headache(s) Reports headache(s) Diagnostics Vital Signs (24Hr): Vital Signs - 24 hr 12/31/22 13:38 12/31/22 14:00 12/31/22 15:17 Temperature 98.6 F 97.6 F Pulse Rate 143 H 108 H 117 H Respiratory Rate 20 22 H 20 Blood Pressure 127/85 118/75 121/78 Pulse Oximetry 98 94 98 Oxygen Delivery Method Room Air Nasal Cannula Nasal Cannula Oxygen Flow Rate 2 4 12/31/22 15:49 12/31/22 16:30 12/31/22 15:45 Temperature 97.7 F Pulse Rate 137 H 129 H 134 H Respiratory Rate 22 H 20 22 H Blood Pressure 120/86 Pulse Oximetry 91 L 91 L Oxygen Delivery Method Nasal Cannula Nasal Cannula Oxygen Flow Rate 4 4 12/31/22 15:49 12/31/22 17:47 12/31/22 19:07 Temperature 98.4 F Pulse Rate 124 H 126 H 120 H Respiratory Rate 20 24 H 16 Blood Pressure 114/80 118/78 Pulse Oximetry 93 91 L 95 Oxygen Delivery Method Nasal Cannula Nasal Cannula Oxygen Flow Rate 10 12 12 12/31/22 20:00 12/31/22 23:16 01/01/23 03:20 Temperature 97.6 F 98.3 F 98.7 F Pulse Rate 116 H 113 H 123 H Respiratory Rate 23 H 19 19 Blood Pressure 127/72 131/87 113/64 Pulse Oximetry 92 93 94 Oxygen Delivery Method Nasal Cannula Nasal Cannula Nasal Cannula Oxygen Flow Rate 12 12 12 01/01/23 07:27 Temperature 98.2 F Pulse Rate 82 Respiratory Rate 18 Blood Pressure 120/64 Pulse Oximetry 93 Oxygen Delivery Method Nasal Cannula Oxygen Flow Rate 12 BMI result Body Mass Index 30.2 Labs 12/31/22 13:59 01/01/23 06:27 Labs: Laboratory Results - last 48 hr 12/31/22 12/31/22 12/31/22 13:59 13:59 13:59 WBC 9.7 RBC 4.78 Hgb 15.1 Hct 41.4 L MCV 86.6 MCH 31.6 MCHC 36.5 H RDW 12.1 Plt Count 250 MPV 10.4 Immature Gran % (Auto) 1.1 H Neut % (Auto) 57.3 Lymph % (Auto) 32.4 Tompkins % (Auto) 7.2 Eos % (Auto) 1.4 Baso % (Auto) 0.6 Lymph # (Auto) 3.2 [place]kins # (Auto) 0.7 Eos # (Auto) 0.1 Baso # (Auto) 0.1 Abs Immat Gran (auto) 0.11 H Absolute Neuts (auto) 5.6 Absolute Nucleated RBC 0.000 Nucleated RBC % (auto) 0.0 PT 10.0 INR 0.9 APTT 25.1 L O2 Saturation ABG pH at Pt Temp ABG pCO2 at Pt Temp ABG pO2 at Pt Temp ABG HCO3 ABG Base Excess (Actual) Sodium 139 Potassium 3.6 Chloride 102 Carbon Dioxide 21 L Anion Gap 20 BUN 19 H Creatinine 1.00 Estim Creat Clear Calc 96.1 Estimated GFR > 60 POC Glucose Random Glucose 270 H Calcium 9.2 Magnesium 2.0 Total Bilirubin 0.7 Direct Bilirubin 0.1 AST 214 H ALT 94 H Alkaline Phosphatase 65 Troponin I High Sens Total Protein 8.2 H Albumin 4.4 TSH 4.61 H Free T4 0.74 Urine Color Urine Appearance Urine pH Ur Specific [place] Urine Protein Urine Glucose (UA) Urine Ketones Urine Blood Urine Nitrite Ur Leukocyte Esterase Urine RBC Urine WBC Ur Squamous Epith Cells Urine Bacteria Hyaline Casts Urine Opiates Screen Urine Fentanyl Screen Ur Barbiturates Screen Ur Phencyclidine Scrn Ur Amphetamines Screen U Benzodiazepines Scrn Urine Cocaine Screen U Marijuana (THC) Screen Ethyl Alcohol < 10 12/31/22 12/31/22 12/31/22 13:59 15:19 15:19 WBC RBC Hgb Hct MCV MCH MCHC RDW Plt Count MPV Immature Gran % (Auto) Neut % (Auto) Lymph % (Auto) Tom[place] % (Auto) Eos % (Auto) Baso % (Auto) Lymph # (Auto) [place] # (Auto) Eos # (Auto) Baso # (Auto) Abs Immat Gran (auto) Absolute Neuts (auto) Absolute Nucleated RBC Nucleated RBC % (auto) PT INR APTT O2 Saturation ABG pH at Pt Temp ABG pCO2 at Pt Temp ABG pO2 at Pt Temp ABG HCO3 ABG Base Excess (Actual) Sodium Potassium Chloride Carbon Dioxide Anion Gap BUN Creatinine Estim Creat Clear Calc Estimated GFR POC Glucose Random Glucose Calcium Magnesium Total Bilirubin Direct Bilirubin AST ALT Alkaline Phosphatase Troponin I High Sens < 2.7 Total Protein Albumin TSH Free T4 Urine Color Yellow Urine Appearance Clear Urine pH 5.5 Ur Specific [place] 1.025 Urine Protein 30 (1+) H Urine Glucose (UA) >=1000 H Urine Ketones Negative Urine Blood Trace H Urine Nitrite Negative Ur Leukocyte Esterase Negative Urine RBC 3-5 H Urine WBC 0-5 Ur Squamous Epith Cells 0-2 Urine Bacteria None Seen Hyaline Casts 0-2 Urine Opiates Screen POSITIVE H Urine Fentanyl Screen POSITIVE H Ur Barbiturates Screen Not Detected Ur Phencyclidine Scrn Not Detected Ur Amphetamines Screen Not Detected U Benzodiazepines Scrn Not Detected Urine Cocaine Screen Not Detected U Marijuana (THC) Screen POSITIVE H Ethyl Alcohol 12/31/22 12/31/22 12/31/22 16:27 16:41 19:06 WBC RBC Hgb Hct MCV MCH MCHC RDW Plt Count MPV Immature Gran % (Auto) Neut % (Auto) Lymph % (Auto) Tom[place] % (Auto) Eos % (Auto) Baso % (Auto) Lymph # (Auto) [place] # (Auto) Eos # (Auto) Baso # (Auto) Abs Immat Gran (auto) Absolute Neuts (auto) Absolute Nucleated RBC Nucleated RBC % (auto) PT INR APTT O2 Saturation 91.0 ABG pH at Pt Temp 7.30 L ABG pCO2 at Pt Temp 44 ABG pO2 at Pt Temp 70 L ABG HCO3 22 ABG Base Excess (Actual) -3.7 Sodium Potassium Chloride Carbon Dioxide Anion Gap BUN Creatinine Estim Creat Clear Calc Estimated GFR POC Glucose 225 H Random Glucose Calcium Magnesium Total Bilirubin Direct Bilirubin AST ALT Alkaline Phosphatase Troponin I High Sens 22.1 D Total Protein Albumin TSH Free T4 Urine Color Urine Appearance Urine pH Ur Specific [place] Urine Protein Urine Glucose (UA) Urine Ketones Urine Blood Urine Nitrite Ur Leukocyte Esterase Urine RBC Urine WBC Ur Squamous Epith Cells Urine Bacteria Hyaline Casts Urine Opiates Screen Urine Fentanyl Screen Ur Barbiturates Screen Ur Phencyclidine Scrn Ur Amphetamines Screen U Benzodiazepines Scrn Urine Cocaine Screen U Marijuana (THC) Screen Ethyl Alcohol 01/01/23 01/01/23 06:27 07:22 WBC RBC Hgb Hct MCV MCH MCHC RDW Plt Count MPV Immature Gran % (Auto) Neut % (Auto) Lymph % (Auto) [place] % (Auto) Eos % (Auto) Baso % (Auto) Lymph # (Auto) [place] # (Auto) Eos # (Auto) Baso # (Auto) Abs Immat Gran (auto) Absolute Neuts (auto) Absolute Nucleated RBC Nucleated RBC % (auto) PT INR APTT O2 Saturation ABG pH at Pt Temp ABG pCO2 at Pt Temp ABG pO2 at Pt Temp ABG HCO3 ABG Base Excess (Actual) Sodium 138 Potassium 4.0 Chloride 103 Carbon Dioxide 25 Anion Gap 14 BUN 17 H Creatinine 0.96 Estim Creat Clear Calc 100.1 Estimated GFR > 60 POC Glucose 188 H Random Glucose 203 H Calcium 8.8 Magnesium Total Bilirubin 1.1 H Direct Bilirubin AST 80 H ALT 79 H Alkaline Phosphatase 47 Troponin I High Sens Total Protein 7.0 Albumin 4.2 TSH Free T4 Urine Color Urine Appearance Urine pH Ur Specific [place] Urine Protein Urine Glucose (UA) Urine Ketones Urine Blood Urine Nitrite Ur Leukocyte Esterase Urine RBC Urine WBC Ur Squamous Epith Cells Urine Bacteria Hyaline Casts Urine Opiates Screen Urine Fentanyl Screen Ur Barbiturates Screen Ur Phencyclidine Scrn Ur Amphetamines Screen U Benzodiazepines Scrn Urine Cocaine Screen U Marijuana (THC) Screen Ethyl Alcohol Imaging Radiology Impressions: ITS Impressions Chest X-Ray 12/31/22 14:17 IMPRESSION: Hypoexpanded with minimal basilar atelectasis. Central vascular prominence likely related to the degree of hypoexpansion. Head CT 12/31/22 15:05 IMPRESSION: * No evidence of calvarial fracture, intracranial hemorrhage or other acute intracranial pathology. * There is a small linear opacity in the right lateral scalp soft tissues, possibly representing minimal hemorrhage from trauma (image 40, series 2). Mental Status Exam Mental Status Exam Patient Appearance: Appropriate Level of Consciousness: Awake and Alert Patient Behavior: Guarded and Avoidant Affect Description: Blunted Judgement: Fair Medications Medications Current Medications Albuterol/Ipratropium (Albuterol/Iprat 2.5/0.5mg 3 Ml Ampul.Neb) 3 ml INHALE RQ4H WHILE AWAKE [facility] Enoxaparin Sodium (Enoxaparin Sodium 100 Mg/Ml Syringe) 90 mg SUBCUT Q12H [facility] Last Admin: 01/01/23 07:22 Dose: 90 mg Fenofibrate (Fenofibrate 54 Mg Tablet) 54 mg PO DAILY [facility] Last Admin: 01/01/23 08:32 Dose: 54 mg Glucose (Glucose Gel 15 Gm Gel..Gram.) 15 gm PO Q15M PRN; Protocol PRN Reason: per Hypoglycemia Standing Ord. Diltiazem HCl 125 mg/ Sodium (Chloride) 125 mls @ 0 mls/hr IVCONT .Q0M [facility]; Protocol Last Admin: 01/01/23 00:47 Dose: 15 mg/hr, 15 mls/hr Lactated Ringer's (Lr) 1,000 mls @ 80 mls/hr IVCONT .[id number] [facility] Last Admin: 01/01/23 04:45 Dose: 80 mls/hr Dextrose (D10) 250 mls @ 750 mls/hr IV Q15M PRN; Protocol PRN Reason: per Hypoglycemia Standing Ord. Insulin Human Lispro (Insulin Lispro 100 Unit/Ml 3 Ml Vial) 0 unit SUBCUT QIDACHS [facility]; Protocol Last Admin: 01/01/23 08:12 Dose: Not Given Naloxone HCl (Naloxone Hcl Nasal 4 Mg [place]) 4 mg NOSTRILALT ONCE PRN PRN Reason: sleepiness Ondansetron HCl (Ondansetron Hcl 4 Mg/2 Ml Vial) 4 mg IVPUSH Q8H PRN PRN Reason: Nausea and Vomiting Last Admin: 12/31/22 22:03 Dose: 4 mg Pharmacy Consult (Consult Rx Perform Med Rec) 1 each MISCELLANE ONCE PRN PRN Reason: Consult order Sertraline HCl (Sertraline Hcl 50 Mg Tablet) 50 mg PO DAILY [facility] Last Admin: 01/01/23 08:32 Dose: 50 mg Sodium Chloride (0.9 % Sodium Chloride Flush 3 Ml Syringe) 3 ml IVFLUSH QSHIFT [facility] Last Admin: 01/01/23 08:13 Dose: Not Given Allergies Allergies Allergy/AdvReac Type Severity Reaction Status Date / Time No Known Allergies Allergy Verified 12/31/22 13:38 [No Known Allergies*] Assessment & Plan Assessment & Plan (1) Drug overdose: Status: Acute Code(s): T50.901A - Poisoning by unspecified drugs, medicaments and biological substances, accidental (unintentional), initial encounter Assessment and Plan: * patient declined resources * denies withdrawal sx * encouraged to ask to speak to our team should he change his mind * take home narcan to be ordered for discharge Total time managing care of this patient today __20__ minutes[address] [facility] Social History Social History (Updated 12/31/22 @ 16:46 by Remy Judge MD) Household Members: Spouse and Children Unable to assess alcohol history related to: Refusing to respond Alcohol intake: former Patient Tobacco Use Status: Former Tobacco user Substance Use Type: Former Substance User service: No Current occupational status: employed
[2023-01-01 09:11] LABS: ABG Base Excess 3.9 mmol/L; ABG HCO3 27 mmol/L (22-26); ABG pCO2 39 mmHg (32-45); ABG pH 7.45 (7.35-7.45); ABG pO2 69 mmHg (83-108)
[2023-01-01] MEDS: dilTIAZem HCL 30 MG TABLET PO ×4 (09:53→20:23)
[2023-01-01] MEDS: Ibuprofen 400 MG TABLET PO (10:23)
[2023-01-01 11:43] LABS: Glucose, Whole Blood 221 mg/dL (60-115)
[2023-01-01] MEDS: Albuterol/Iprat 2.5/0.5MG 3 ML AMPUL.NEB INHALE (12:04)
[2023-01-01 12:36] LABS: ABG Refer to POC result
[2023-01-01] MEDS: Insulin Lispro 100 UNIT/ML 3 ML VIAL SUBCUT ×3 (13:12→20:23)
--- NOTE | 2023-01-01 13:30 | P.CONCA_ITS ---
History of Present Illness History of Present Illness Date of Service: 01/01/23 Requesting physician: Remy Judge Chief complaint: Unresponsive episode, drug overdose, Afib Narrative: 52-year-old gentleman who is visiting from [place] who was admitted with drug overdose and was noticed to be in AFib with RVR afterwards. He has history of coronary artery disease based on the 's description that he had coronary CTA performed in [place] and was told that he has coronary disease. He also has diabetes and was taking metformin. He also has history of probably familiar hypertriglyceridemia as his triglyceride levels were more than 3000 at 1 stage and he has been taking fenofibrate. Is presenting to us with drug overdose. He is positive for fentanyl, marijuana and opiates. He is short of breath and hypoxic. Chest x-ray has chest shown atelectasis and no obvious infiltrate has been noticed. He is in AFib with RVR. He is denying any palpitations. He has some chest tenderness because apparently CPR was performed on him by bystanders because he was found unresponsive and also received Narcan. It appears this is due to narcotic use. [facility] Social History Social History (Updated 12/31/22 @ 16:46 by Remy Judge MD) Household Members: Spouse and Children Unable to assess alcohol history related to: Refusing to respond Alcohol intake: former Patient Tobacco Use Status: Former Tobacco user Substance Use Type: Former Substance User service: No Current occupational status: employed Meds Allergies Allergy/AdvReac Type Severity Reaction Status Date / Time No Known Allergies Allergy Verified 12/31/22 13:38 [No Known Allergies*] Active Medications: Current Medications Acetaminophen (Acetaminophen 325 Mg Tablet) 650 mg PO Q6H PRN PRN Reason: Headache Albuterol/Ipratropium (Albuterol/Iprat 2.5/0.5mg 3 Ml Ampul.Neb) 3 ml INHALE R Q4H WHILE AWAKE [place] Last Admin: 01/01/23 12:04 Dose: 3 ml Diltiazem HCl (Diltiazem Hcl 30 Mg Tablet) 30 mg PO QID [facility]; Protocol Last Admin: 01/01/23 13:12 Dose: 30 mg Enoxaparin Sodium (Enoxaparin Sodium 100 Mg/Ml Syringe) 90 mg SUBCUT Q12H [facility] Last Admin: 01/01/23 07:22 Dose: 90 mg Fenofibrate (Fenofibrate 54 Mg Tablet) 54 mg PO DAILY [facility] Last Admin: 01/01/23 08:32 Dose: 54 mg Glucose (Glucose Gel 15 Gm Gel..Gram.) 15 gm PO Q15M PRN; Protocol PRN Reason: per Hypoglycemia Standing Ord. Lactated Ringer's (Lr) 1,000 mls @ 80 mls/hr IVCONT .[id number] [facility] Last Admin: 01/01/23 04:45 Dose: 80 mls/hr Dextrose (D10) 250 mls @ 750 mls/hr IV Q15M PRN; Protocol PRN Reason: per Hypoglycemia Standing Ord. Insulin Human Lispro (Insulin Lispro 100 Unit/Ml 3 Ml Vial) 0 unit SUBCUT QIDACHS [facility]; Protocol Last Admin: 01/01/23 13:12 Dose: 4 unit Naloxone HCl (Naloxone Hcl Nasal 4 Mg [place]) 4 mg NOSTRILALT ONCE PRN PRN Reason: sleepiness Ondansetron HCl (Ondansetron Hcl 4 Mg/2 Ml Vial) 4 mg IVPUSH Q8H PRN PRN Reason: Nausea and Vomiting Last Admin: 12/31/22 22:03 Dose: 4 mg Pharmacy Consult (Consult Rx Perform Med Rec) 1 each MISCELLANE ONCE PRN PRN Reason: Consult order Sertraline HCl (Sertraline Hcl 50 Mg Tablet) 50 mg PO DAILY [facility] Last Admin: 01/01/23 08:32 Dose: 50 mg Sodium Chloride (0.9 % Sodium Chloride Flush 3 Ml Syringe) 3 [facility] Last Admin: 01/01/23 08:13 Dose: Not Given Home Medications Medication Instructions Recorded Confirmed Last Taken Type fenofibrate 54 mg tablet 54 mg PO DAILY 12/31/22 12/31/22 12/30/22 History metformin 1,000 mg tablet 1,000 mg PO BID 12/31/22 12/31/22 12/30/22 History naproxen sodium 220 mg tablet 440 mg PO BID PRN Pain 12/31/22 12/31/22 Unknown History (Aleve) propranolol 10 mg tablet 10 mg PO BID PRN chest pain / 12/31/22 12/31/22 12/30/22 History anxiety rosuvastatin 20 mg tablet 20 mg PO BEDTIME 12/31/22 12/31/22 12/30/22 History sertraline 50 mg tablet 50 mg PO DAILY 12/31/22 12/31/22 12/30/22 History testosterone cypionate 200 mg/mL 100 mg IM QWEEK 12/31/22 12/31/22 12/28/22 History intramuscular kit Physical Exam Vital Signs: Vital Signs: Last Vital Signs Temp 99.1 F 01/01/23 11:33 Pulse 91 01/01/23 12:05 Resp 18 01/01/23 12:05 BP 138/85 01/01/23 11:33 Pulse Ox 94 01/01/23 11:33 O2 Del Method Nasal Cannula 01/01/23 11:33 O2 Flow Rate 12 01/01/23 11:33 BMI result Body Mass Index 30.2 GENERAL APPEARANCE: Short of breath. On nasal cannula. NECK: no carotid bruit, + jugular venous distention. SKIN: no suspicious lesions, warm and dry. HEART: no murmurs, regular rate and rhythm. LUNGS: clear to auscultation bilaterally. ABDOMEN: soft, nontender. EXTREMITIES: no edema. PERIPHERAL PULSES: equal. NEUROLOGIC: No gross deficits, AAO X 3 Objective Labs and Meds 12/31/22 13:59 01/01/23 06:27 Lab results: Laboratory Results - last 24 hr 12/31/22 12/31/22 12/31/22 13:59 13:59 13:59 WBC 9.7 RBC 4.78 Hgb 15.1 Hct 41.4 L MCV 86.6 MCH 31.6 MCHC 36.5 H RDW 12.1 Plt Count 250 MPV 10.4 Immature Gran % (Auto) 1.1 H Neut % (Auto) 57.3 Lymph % (Auto) 32.4 [place] % (Auto) 7.2 Eos % (Auto) 1.4 Baso % (Auto) 0.6 Lymph # (Auto) 3.2 [place] # (Auto) 0.7 Eos # (Auto) 0.1 Baso # (Auto) 0.1 Abs Immat Gran (auto) 0.11 H Absolute Neuts (auto) 5.6 Absolute Nucleated RBC 0.000 Nucleated RBC % (auto) 0.0 PT 10.0 INR 0.9 APTT 25.1 L O2 Saturation ABG pH at Pt Temp ABG pCO2 at Pt Temp ABG pO2 at Pt Temp ABG HCO3 ABG Base Excess (Actual) Sodium 139 Potassium 3.6 Chloride 102 Carbon Dioxide 21 L Anion Gap 20 BUN 19 H Creatinine 1.00 Estim Creat Clear Calc 96.1 Estimated GFR > 60 POC Glucose Random Glucose 270 H Calcium 9.2 Magnesium 2.0 Total Bilirubin 0.7 Direct Bilirubin 0.1 AST 214 H ALT 94 H Alkaline Phosphatase 65 Troponin I High Sens Total Protein 8.2 H Albumin 4.4 TSH 4.61 H Free T4 0.74 Urine Color Urine Appearance Urine pH Ur Specific [place] Urine Protein Urine Glucose (UA) Urine Ketones Urine Blood Urine Nitrite Ur Leukocyte Esterase Urine RBC Urine WBC Ur Squamous Epith Cells Urine Bacteria Hyaline Casts Urine Opiates Screen Urine Fentanyl Screen Ur Barbiturates Screen Ur Phencyclidine Scrn Ur Amphetamines Screen U Benzodiazepines Scrn Urine Cocaine Screen U Marijuana (THC) Screen Ethyl Alcohol < 10 12/31/22 12/31/22 12/31/22 13:59 15:19 15:19 WBC RBC Hgb Hct MCV MCH MCHC RDW Plt Count MPV Immature Gran % (Auto) Neut % (Auto) Lymph % (Auto) [place] % (Auto) Eos % (Auto) Baso % (Auto) Lymph # (Auto) [place] # (Auto) Eos # (Auto) Baso # (Auto) Abs Immat Gran (auto) Absolute Neuts (auto) Absolute Nucleated RBC Nucleated RBC % (auto) PT INR APTT O2 Saturation ABG pH at Pt Temp ABG pCO2 at Pt Temp ABG pO2 at Pt Temp ABG HCO3 ABG Base Excess (Actual) Sodium Potassium Chloride Carbon Dioxide Anion Gap BUN Creatinine Estim Creat Clear Calc Estimated GFR POC Glucose Random Glucose Calcium Magnesium Total Bilirubin Direct Bilirubin AST ALT Alkaline Phosphatase Troponin I High Sens < 2.7 Total Protein Albumin TSH Free T4 Urine Color Yellow Urine Appearance Clear Urine pH 5.5 Ur Specific [place] 1.025 Urine Protein 30 (1+) H Urine Glucose (UA) >=1000 H Urine Ketones Negative Urine Blood Trace H Urine Nitrite Negative Ur Leukocyte Esterase Negative Urine RBC 3-5 H Urine WBC 0-5 Ur Squamous Epith Cells 0-2 Urine Bacteria None Seen Hyaline Casts 0-2 Urine Opiates Screen POSITIVE H Urine Fentanyl Screen POSITIVE H Ur Barbiturates Screen Not Detected Ur Phencyclidine Scrn Not Detected Ur Amphetamines Screen Not Detected U Benzodiazepines Scrn Not Detected Urine Cocaine Screen Not Detected U Marijuana (THC) Screen POSITIVE H Ethyl Alcohol 12/31/22 12/31/22 12/31/22 16:27 16:41 19:06 WBC RBC Hgb Hct MCV MCH MCHC RDW Plt Count MPV Immature Gran % (Auto) Neut % (Auto) Lymph % (Auto) [place] % (Auto) Eos % (Auto) Baso % (Auto) Lymph # (Auto) [place] # (Auto) Eos # (Auto) Baso # (Auto) Abs Immat Gran (auto) Absolute Neuts (auto) Absolute Nucleated RBC Nucleated RBC % (auto) PT INR APTT O2 Saturation 91.0 ABG pH at Pt Temp 7.30 L ABG pCO2 at Pt Temp 44 ABG pO2 at Pt Temp 70 L ABG HCO3 22 ABG Base Excess (Actual) -3.7 Sodium Potassium Chloride Carbon Dioxide Anion Gap BUN Creatinine Estim Creat Clear Calc Estimated GFR POC Glucose 225 H Random Glucose Calcium Magnesium Total Bilirubin Direct Bilirubin AST ALT Alkaline Phosphatase Troponin I High Sens 22.1 D Total Protein Albumin TSH Free T4 Urine Color Urine Appearance Urine pH Ur Specific [place] Urine Protein Urine Glucose (UA) Urine Ketones Urine Blood Urine Nitrite Ur Leukocyte Esterase Urine RBC Urine WBC Ur Squamous Epith Cells Urine Bacteria Hyaline Casts Urine Opiates Screen Urine Fentanyl Screen Ur Barbiturates Screen Ur Phencyclidine Scrn Ur Amphetamines Screen U Benzodiazepines Scrn Urine Cocaine Screen U Marijuana (THC) Screen Ethyl Alcohol 01/01/23 01/01/23 01/01/23 06:27 07:22 09:02 WBC RBC Hgb Hct MCV MCH MCHC RDW Plt Count MPV Immature Gran % (Auto) Neut % (Auto) Lymph % (Auto) [place] % (Auto) Eos % (Auto) Baso % (Auto) Lymph # (Auto) [place] # (Auto) Eos # (Auto) Baso # (Auto) Abs Immat Gran (auto) Absolute Neuts (auto) Absolute Nucleated RBC Nucleated RBC % (auto) PT INR APTT O2 Saturation 94.0 ABG pH at Pt Temp 7.45 ABG pCO2 at Pt Temp 39 ABG pO2 at Pt Temp 69 L ABG HCO3 27 H ABG Base Excess (Actual) 3.9 Sodium 138 Potassium 4.0 Chloride 103 Carbon Dioxide 25 Anion Gap 14 BUN 17 H Creatinine 0.96 Estim Creat Clear Calc 100.1 Estimated GFR > 60 POC Glucose 188 H Random Glucose 203 H Calcium 8.8 Magnesium Total Bilirubin 1.1 H Direct Bilirubin AST 80 H ALT 79 H Alkaline Phosphatase 47 Troponin I High Sens Total Protein 7.0 Albumin 4.2 TSH Free T4 Urine Color Urine Appearance Urine pH Ur Specific [place] Urine Protein Urine Glucose (UA) Urine Ketones Urine Blood Urine Nitrite Ur Leukocyte Esterase Urine RBC Urine WBC Ur Squamous Epith Cells Urine Bacteria Hyaline Casts Urine Opiates Screen Urine Fentanyl Screen Ur Barbiturates Screen Ur Phencyclidine Scrn Ur Amphetamines Screen U Benzodiazepines Scrn Urine Cocaine Screen U Marijuana (THC) Screen Ethyl Alcohol 01/01/23 11:39 WBC RBC Hgb Hct MCV MCH MCHC RDW Plt Count MPV Immature Gran % (Auto) Neut % (Auto) Lymph % (Auto) [place] % (Auto) Eos % (Auto) Baso % (Auto) Lymph # (Auto) [place] # (Auto) Eos # (Auto) Baso # (Auto) Abs Immat Gran (auto) Absolute Neuts (auto) Absolute Nucleated RBC Nucleated RBC % (auto) PT INR APTT O2 Saturation ABG pH at Pt Temp ABG pCO2 at Pt Temp ABG pO2 at Pt Temp ABG HCO3 ABG Base Excess (Actual) Sodium Potassium Chloride Carbon Dioxide Anion Gap BUN Creatinine Estim Creat Clear Calc Estimated GFR POC Glucose 221 H Random Glucose Calcium Magnesium Total Bilirubin Direct Bilirubin AST ALT Alkaline Phosphatase Troponin I High Sens Total Protein Albumin TSH Free T4 Urine Color Urine Appearance Urine pH Ur Specific [place] Urine Protein Urine Glucose (UA) Urine Ketones Urine Blood Urine Nitrite Ur Leukocyte Esterase Urine RBC Urine WBC Ur Squamous Epith Cells Urine Bacteria Hyaline Casts Urine Opiates Screen Urine Fentanyl Screen Ur Barbiturates Screen Ur Phencyclidine Scrn Ur Amphetamines Screen U Benzodiazepines Scrn Urine Cocaine Screen U Marijuana (THC) Screen Ethyl Alcohol Imaging Radiologist's impression: Impressions Chest X-Ray 12/31/22 14:17 IMPRESSION: Hypoexpanded with minimal basilar atelectasis. Central vascular prominence likely related to the degree of hypoexpansion. Head CT 12/31/22 15:05 IMPRESSION: * No evidence of calvarial fracture, intracranial hemorrhage or other acute intracranial pathology. * There is a small linear opacity in the right lateral scalp soft tissues, possibly representing minimal hemorrhage from trauma (image 40, series 2). Chest X-Ray 01/01/23 09:31 IMPRESSION: - Low lung volumes. - Fullness right hilar vasculature with question of right infrahilar opacity. No oligemia on left. - No lobar or segmental airspace consolidation. No pneumothorax. No effusion. Assessment and Plan (1) Drug overdose: Status: Acute (2) Atrial fibrillation with rapid ventricular response: Status: Acute Plan [age] year gentleman presenting with drug overdose overdose and CPR performed by by center. Unclear whether he truly lost his pulse or not. He had AFib with RVR and has reverted to sinus rhythm at this stage. Recommend starting him on metoprolol 25 mg twice a day. He is hypoxic and is unclear why he has such high oxygen demand. Chest x-ray just showing some atelectasis. Recommend doing CTA to rule out pulmonary embolism. He has chads Vasc score of 2 and has no symptoms while in atrial fibrillation. I recommend starting him on anticoagulation to prevent stroke in the future. Asymptomatic patients are challenging because they can stay in atrial fibrillation for long time without getting any significant symptoms. 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 If CT PA is normal then he needs incentive spirometry to see if atelectasis is the reason he is so hypoxic. Thank you for allowing me to participate in the care of your patient. Please feel free to contact me if you have any questions. Time Spent With Patient Time: Total time managing care of this patient today ____ minutes. Procedures Date of Service Date of Service: 01/01/23
--- NOTE | 2023-01-01 14:56 | P.CONPL_ITS ---
History of Present Illness History of Present Illness Consult date: 01/01/23 Requesting physician: Remy Judge Chief complaint: Hypoxia Narrative: 52-year-old gentleman former 20 pack-year smoker, underlying history of substance abuse, diabetes mellitus, AFib CAD admitted on 12/31/2022 with alteration of mental status and acute hypoxemia requiring 12-15 L supplemental oxygen to maintain normal oximetry. Initial chest x-ray with possible right- sided infiltrate consistent with an aspiration. FiO2 requirements continue to improve. CT angio chest is pending. Patient denies cough or sputum production. Review of Systems Constitutional: Constitutional: Denies daytime sleepiness, Denies excessive sweating, Denies fatigue, Denies fever(s), Denies lethargy, Denies malaise, Denies night sweats, Denies snoring and Denies weight loss Eyes: Eyes: Denies blurry vision and Denies itchy eyes ENT: Denies nasal congestion, Denies post nasal drip, Denies sinus pain, Denies sinus pressure and Denies other ( Thrush) Cardiovascular: Cardiovascular: Denies chest pain, Denies pedal edema, Denies dyspnea, Denies orthopnea and Denies paroxysmal nocturnal dyspnea Respiratory: Respiratory: Denies cough, Denies hemoptysis, Denies excessive phlegm production, Denies dyspnea, Denies snoring and Denies wheezing Gastrointestinal: Gastrointestinal: Denies abdominal pain and Denies heartburn Musculoskeletal: Musculoskeletal: Denies myalgias, Denies arthralgias and D enies joint swelling Integumentary/Breasts: Skin/Breast: Denies rash Neurologic: Denies memory loss and Denies seizure-like activity Psychiatric: Psychiatric: Denies abnormal sleep pattern, Denies anxiety and Denies memory loss Endocrine: Endocrine: Denies excessive sweating, Denies fatigue and Denies heat intolerance Hematologic/Lymphatic: Hematologic/Lymphatic: Denies easy bruising Allergic/Immunologic: Allergic/Immunologic: Denies itchy eyes, Denies seasonal rhinorrhea and Denies wheezing PMF Social History Social History (Updated 12/31/22 @ 16:46 by Remy Judge MD) Household Members: Spouse and Children Unable to assess alcohol history related to: Refusing to respond Alcohol intake: former Patient Tobacco Use Status: Former Tobacco user Substance Use Type: Former Substance User service: No Current occupational status: employed Meds Allergies Allergy/AdvReac Type Severity Reaction Status Date / Time No Known Allergies Allergy Verified 12/31/22 13:38 [No Known Allergies*] Active Medications: Current Medications Acetaminophen (Acetaminophen 325 Mg Tablet) 650 mg PO Q6H PRN PRN Reason: Headache Albuterol/Ipratropium (Albuterol/Iprat 2.5/0.5mg 3 Ml Ampul.Neb) 3 ml INHALE RQ4H WHILE AWAKE [facility] Last Admin: 01/01/23 12:04 Dose: 3 ml Diltiazem HCl (Diltiazem Hcl 30 Mg Tablet) 30 mg PO QID [facility]; Protocol Last Admin: 01/01/23 13:12 Dose: 30 mg Enoxaparin Sodium (Enoxaparin Sodium 100 Mg/Ml Syringe) 90 mg SUBCUT Q12H [facility] Last Admin: 01/01/23 07:22 Dose: 90 mg Fenofibrate (Fenofibrate 54 Mg Tablet) 54 mg PO DAILY [facility] Last Admin: 01/01/23 08:32 Dose: 54 mg Glucose (Glucose Gel 15 Gm Gel..Gram.) 15 gm PO Q15M PRN; Protocol PRN Reason: per Hypoglycemia Standing Ord. Lactated Ringer's (Lr) 1,000 mls @ 80 mls/hr IVCONT .[id number] [facility] Last Admin: 01/01/23 04:45 Dose: 80 mls/hr Dextrose (D10) 250 mls @ 750 mls/hr IV Q15M PRN; Protocol PRN Reason: per Hypoglycemia Standing Ord. Insulin Human Lispro (Insulin Lispro 100 Unit/Ml 3 Ml Vial) 0 unit SUBCUT QIDACHS [facility]; Protocol Last Admin: 01/01/23 13:12 Dose: 4 unit Methylprednisolone Sodium Succinate (Methylprednisolone Sod Succ 40 Mg/Ml Vial) 40 mg IVPUSH Q24H [facility] Naloxone HCl (Naloxone Hcl Nasal 4 Mg [place]) 4 mg NOSTRILALT ONCE PRN PRN Reason: sleepiness Ondansetron HCl (Ondansetron Hcl 4 Mg/2 Ml Vial) 4 mg IVPUSH Q8H PRN PRN Reason: Nausea and Vomiting Last Admin: 12/31/22 22:03 Dose: 4 mg Pharmacy Consult (Consult Rx Perform Med Rec) 1 each MISCELLANE ONCE PRN PRN Reason: Consult order Sertraline HCl (Sertraline Hcl 50 Mg Tablet) 50 mg PO DAILY [facility] Last Admin: 01/01/23 08:32 Dose: 50 mg Sodium Chloride (0.9 % Sodium Chloride Flush 3 Ml Syringe) 3 ml IVFLUSH QSHIFT [facility] Last Admin: 01/01/23 08:13 Dose: Not Given Home Medications Medication Instructions Recorded Confirmed Last Taken Type fenofibrate 54 mg tablet 54 mg PO DAILY 12/31/22 12/31/22 12/30/22 History metformin 1,000 mg tablet 1,000 mg PO BID 12/31/22 12/31/22 12/30/22 History naproxen sodium 220 mg tablet 440 mg PO BID PRN Pain 12/31/22 12/31/22 Unknown History (Aleve) propranolol 10 mg tablet 10 mg PO BID PRN chest pain / 12/31/22 12/31/22 12/30/22 History anxiety rosuvastatin 20 mg tablet 20 mg PO BEDTIME 12/31/22 12/31/22 12/30/22 History sertraline 50 mg tablet 50 mg PO DAILY 12/31/22 12/31/22 12/30/22 History testosterone cypionate 200 mg/mL 100 mg IM QWEEK 12/31/22 12/31/22 12/28/22 History intramuscular kit Physical Exam Vital Signs: Vital Signs: Last Vital Signs Temp 99.1 F 01/01/23 11:33 Pulse 91 01/01/23 12:05 Resp 18 01/01/23 12:05 BP 138/85 01/01/23 11:33 Pulse Ox 94 01/01/23 11:33 O2 Del Method Nasal Cannula 01/01/23 11:33 O2 Flow Rate 12 01/01/23 11:33 BMI result Body Mass Index 30.2 Const: General: no acute distress and alert Nutritional Appearance: not obese Orientation/consciousness: Other orientation findings ( oriented) HEENT: Head: Yes atraumatic Mouth: no other ( thrush) Throat: No postnasal drainage Eyes: General: appearance normal, both eyes and all related structures Sclerae: sclerae normal EOM: EOMs intact bilaterally Neck: Neck: Yes supple Lymphatic: no lymphadenopathy noted Resp: Effort & Inspection: normal respiratory effort and no use of accessory muscles Auscultation: clear to auscultation bilaterally Cardio: Rate: regular rate Rhythm: regular rhythm Heart sounds: no gallops, no murmurs and no rubs GI: Palpation (GI): Soft to palpation and Other GI palpation findings present ( nontender) Skin: General skin exam: other ( warm) Rashes: no rashes Extrem: General: No clubbing, No cyanosis and No edema Results Laboratory Findings 12/31/22 13:59 01/01/23 06:27 ABG, PT/INR, D-dimer: PT/INR, D-dimer PT 10.0 SEC (10.0-13.1) 12/31/22 13:59 INR 0.9 (0.9-1.1) 12/31/22 13:59 Abnormal lab findings: Abnormal Labs 12/31/22 12/31/22 12/31/22 13:59 13:59 13:59 Hct 41.4 L MCHC 36.5 H Immature Gran % (Auto) 1.1 H Abs Immat Gran (auto) 0.11 H APTT 25.1 L ABG pH at Pt Temp ABG pO2 at Pt Temp ABG HCO3 Carbon Dioxide 21 L BUN 19 H POC Glucose Random Glucose 270 H Total Bilirubin AST 214 H ALT 94 H Total Protein 8.2 H TSH 4.61 H Urine Protein Urine Glucose (UA) Urine Blood Urine RBC Urine Opiates Screen Urine Fentanyl Screen U Marijuana (THC) Screen 12/31/22 12/31/22 12/31/22 15:19 15:19 16:41 Hct MCHC Immature Gran % (Auto) Abs Immat Gran (auto) APTT ABG pH at Pt Temp 7.30 L ABG pO2 at Pt Temp 70 L ABG HCO3 Carbon Dioxide BUN POC Glucose Random Glucose Total Bilirubin AST ALT Total Protein TSH Urine Protein 30 (1+) H Urine Glucose (UA) >=1000 H Urine Blood Trace H Urine RBC 3-5 H Urine Opiates Screen POSITIVE H Urine Fentanyl Screen POSITIVE H U Marijuana (THC) Screen POSITIVE H 12/31/22 01/01/23 01/01/23 19:06 06:27 07:22 Hct MCHC Immature Gran % (Auto) Abs Immat Gran (auto) APTT ABG pH at Pt Temp ABG pO2 at Pt Temp ABG HCO3 Carbon Dioxide BUN 17 H POC Glucose 225 H 188 H Random Glucose 203 H Total Bilirubin 1.1 H AST 80 H ALT 79 H Total Protein TSH Urine Protein Urine Glucose (UA) Urine Blood Urine RBC Urine Opiates Screen Urine Fentanyl Screen U Marijuana (THC) Screen 01/01/23 01/01/23 09:02 11:39 Hct MCHC Immature Gran % (Auto) Abs Immat Gran (auto) APTT ABG pH at Pt Temp ABG pO2 at Pt Temp 69 L ABG HCO3 27 H Carbon Dioxide BUN POC Glucose 221 H Random Glucose Total Bilirubin AST ALT Total Protein TSH Urine Protein Urine Glucose (UA) Urine Blood Urine RBC Urine Opiates Screen Urine Fentanyl Screen U Marijuana (THC) Screen Assessment and Plan (1) Acute respiratory failure with hypoxemia: Status: Acute (2) Substance abuse: Status: Acute Plan Impression: 52-year-old gentleman admitted with acute hypoxic respiratory failure on the background of substance abuse, likely with an aspiration component, with FiO2 requirements improving slowly. Recommendations: CT angiogram is pending to rule out pulmonary embolism and to assess parenchymal involvement with possible drug related pneumonitis versus hours aspiration pneumonitis. Start on prednisone equivalent of 40 mg daily. At this time would suggest to monitor off antibiotics, at there is no significant clinical signs of pneumonia, but likely aspiration pneumonitis. Time Spent With Patient Time: Total time managing care of this patient today ____ minutes. Procedures Date of Service Date of Service: 01/01/23
[2023-01-01 16:06] LABS: Glucose, Whole Blood 152 mg/dL (60-115)
[2023-01-01] MEDS: iohexoL 350 MG/ML 100 ML INFUS..BTL IV (16:30)
[2023-01-01 16:43] LABS: Glucose, Whole Blood 173 mg/dL (60-115)
[2023-01-01] MEDS: methylPREDNISolone Sod Succ 40 MG/ML VIAL IVPUSH (16:56)
--- NOTE | 2023-01-01 17:02 | P.PNIM_ITS ---
Subjective Subjective Date of Service: 01/01/23 Interval History: Unresponsive episode, Drug use , acute hypoxemic respiratory failure Review of Systems does not seems significantly short of breath but desats without oxygen. Mental status seems to be improving Denies any chest pain or cough or phlegm Physical Exam Vital Signs: Vital Signs: Last Vital Signs Temp 99.1 F 01/01/23 15:59 Pulse 94 01/01/23 15:59 Resp 16 01/01/23 15:59 BP 140/78 H 01/01/23 15:59 Pulse Ox 92 01/01/23 15:59 O2 Del Method Nasal Cannula 01/01/23 15:59 O2 Flow Rate 12 01/01/23 11:33 BMI result Body Mass Index 30.2 Appearance: awake ,plesantly confused ,follows simple commands cvs: rrr, [id number] , no murmur res: air entry fair , diminshed at bases. abd: no rebound or guarding ,nt, bs present. ext pulses present , no cyanosis . neuro: axo3 , nonfocal. Objective Data Active Medications Acetaminophen (Acetaminophen 325 Mg Tablet) 650 mg PO Q6H PRN PRN Reason: Headache Albuterol/Ipratropium (Albuterol/Iprat 2.5/0.5mg 3 Ml Ampul.Neb) 3 ml INHALE RQ4H WHILE AWAKE [facility] Last Admin: 01/01/23 15:32 Dose: Not Given Documented By: TOVA Non-Admin Reason: Pt getting bedside echo Diltiazem HCl (Diltiazem Hcl 30 Mg Tablet) 30 mg PO QID [facility]; Protocol Last Admin: 01/01/23 13:12 Dose: 30 mg Documented By: RITA Enoxaparin Sodium (Enoxaparin Sodium 100 Mg/Ml Syringe) 90 mg SUBCUT Q12H [facility] [place] Last Admin: 01/01/23 07:22 Dose: 90 mg Documented By: HIREN Fenofibrate (Fenofibrate 54 Mg Tablet) 54 mg PO DAILY [facility] [place] Last Admin: 01/01/23 08:32 Dose: 54 mg Documented By: RITA Glucose (Glucose Gel 15 Gm Gel..Gram.) 15 gm PO Q15M PRN; Protocol PRN Reason: per Hypoglycemia Standing Ord. Lactated Ringer's (Lr) 1,000 mls @ 80 mls/hr IVCONT .[id number] [facility] Last Admin: 01/01/23 16:46 Dose: Not Given Documented By: CHRISTIAN Non-Admin Reason: IV Running Dextrose (D10) 250 mls @ 750 mls/hr IV Q15M PRN; Protocol PRN Reason: per Hypoglycemia Standing Ord. Insulin Human Lispro (Insulin Lispro 100 Unit/Ml 3 Ml Vial) 0 unit SUBCUT QIDACHS [facility] [place]; Protocol Last Admin: 01/01/23 13:12 Dose: 4 unit Documented By: RITA Methylprednisolone Sodium Succinate (Methylprednisolone Sod Succ 40 Mg/Ml Vial) 40 mg IVPUSH Q24H [facility] [place] Naloxone HCl (Naloxone Hcl Nasal 4 Mg [place]) 4 mg NOSTRILALT ONCE PRN PRN Reason: sleepiness Ondansetron HCl (Ondansetron Hcl 4 Mg/2 Ml Vial) 4 mg IVPUSH Q8H PRN PRN Reason: Nausea and Vomiting Last Admin: 12/31/22 22:03 Dose: 4 mg Documented By: HIREN Pharmacy Consult (Consult Rx Perform Med Rec) 1 each MISCELLANE ONCE PRN PRN Reason: Consult order Sertraline HCl (Sertraline Hcl 50 Mg Tablet) 50 mg PO DAILY [facility] [place] Last Admin: 01/01/23 08:32 Dose: 50 mg Documented By: RITA Sodium Chloride (0.9 % Sodium Chloride Flush 3 Ml Syringe) 3 ml IVFLUSH QSHIFT [facility] [place] Last Admin: 01/01/23 16:47 Dose: Not Given Documented By: CHRISTIAN Non-Admin Reason: IV Running Labs 12/31/22 13:59 01/01/23 06:27 Labs: Laboratory Results - last 24 hr 12/31/22 12/31/22 12/31/22 13:59 15:19 16:27 O2 Saturation ABG pH at Pt Temp ABG pCO2 at Pt Temp ABG pO2 at Pt Temp ABG HCO3 ABG Base Excess (Actual) Anion Gap Estim Creat Clear Calc Estimated GFR POC Glucose Random Glucose Calcium Total Bilirubin Direct Bilirubin 0.1 AST ALT Alkaline Phosphatase Troponin I High Sens 22.1 D Total Protein Albumin Free T4 0.74 Urine Color Yellow Urine Appearance Clear Urine pH 5.5 Ur Specific [place] 1.025 Urine Protein 30 (1+) H Urine Glucose (UA) >=1000 H Urine Ketones Negative Urine Blood Trace H Urine Nitrite Negative Ur Leukocyte Esterase Negative Urine RBC 3-5 H Urine WBC 0-5 Ur Squamous Epith Cells 0-2 Urine Bacteria None Seen Hyaline Casts 0-2 12/31/22 01/01/23 01/01/23 19:06 06:27 07:22 O2 Saturation ABG pH at Pt Temp ABG pCO2 at Pt Temp ABG pO2 at Pt Temp ABG HCO3 ABG Base Excess (Actual) Anion Gap 14 Estim Creat Clear Calc 100.1 Estimated GFR > 60 POC Glucose 225 H 188 H Random Glucose 203 H Calcium 8.8 Total Bilirubin 1.1 H Direct Bilirubin AST 80 H ALT 79 H Alkaline Phosphatase 47 Troponin I High Sens Total Protein 7.0 Albumin 4.2 Free T4 Urine Color Urine Appearance Urine pH Ur Specific [place] Urine Protein Urine Glucose (UA) Urine Ketones Urine Blood Urine Nitrite Ur Leukocyte Esterase Urine RBC Urine WBC Ur Squamous Epith Cells Urine Bacteria Hyaline Casts 01/01/23 01/01/23 01/01/23 09:02 11:39 16:02 O2 Saturation 94.0 ABG pH at Pt Temp 7.45 ABG pCO2 at Pt Temp 39 ABG pO2 at Pt Temp 69 L ABG HCO3 27 H ABG Base Excess (Actual) 3.9 Anion Gap Estim Creat Clear Calc Estimated GFR POC Glucose 221 H 152 H Random Glucose Calcium Total Bilirubin Direct Bilirubin AST ALT Alkaline Phosphatase Troponin I High Sens Total Protein Albumin Free T4 Urine Color Urine Appearance Urine pH Ur Specific [place] Urine Protein Urine Glucose (UA) Urine Ketones Urine Blood Urine Nitrite Ur Leukocyte Esterase Urine RBC Urine WBC Ur Squamous Epith Cells Urine Bacteria Hyaline Casts 01/01/23 16:39 O2 Saturation ABG pH at Pt Temp ABG pCO2 at Pt Temp ABG pO2 at Pt Temp ABG HCO3 ABG Base Excess (Actual) Anion Gap Estim Creat Clear Calc Estimated GFR POC Glucose 173 H Random Glucose Calcium Total Bilirubin Direct Bilirubin AST ALT Alkaline Phosphatase Troponin I High Sens Total Protein Albumin Free T4 Urine Color Urine Appearance Urine pH Ur Specific [place] Urine Protein Urine Glucose (UA) Urine Ketones Urine Blood Urine Nitrite Ur Leukocyte Esterase Urine RBC Urine WBC Ur Squamous Epith Cells Urine Bacteria Hyaline Casts Assessment and Plan (1) Substance abuse: Status: Acute (2) Acute respiratory failure with hypoxemia: Status: Acute (3) Elevated liver function tests: Status: Acute (4) Drug overdose: Status: Acute Plan 52-year-old male IV drug use in the past-as per 7year? was clean, history of hypercholesteremia, diabetes, CAD:? Came with unresponsive episode-likely related to drug intoxication as above. unresponsive episode( yesterday brought)-likely related to drug intoxication as above. as per multiple family member have drug use hx. Toxic metabolic encephalopathy secondary to drug intoxication drug screen positive -opioid, fentanyl, marijuana. cxr seems fine ,ct neg -except mild scalp hemtoma seems menatal status improving Acute hypoxemic respiratory failure: Possible multifactorial-drug use pneumonitis versus aspiration pneumonitis Cta -preliminary-spoke to [facility]: No PE but lower lobe infiltrates-possible aspiration component. Wait for official CT report. Seen by pulmonary: Added IV steroids, currently recommended to hold off antibiotics, continue oxygen support AFib with RVR: previous ekg was nsr in 2012. moniter on tele [id number] has hx of dm,cad chadvasc 2 ct head neg except? small scalp hematoma Patient is already on Cardizem drip, Added Lovenox cardiology eval noted ,echo added. Mild elevated borderline TSH:4.61 added free t4and t3. mild elevated lft's-? drug use improving ,moniter ,if still elevated -may need further workup hold statin and meds interfer with liver function HLp: Hold statin due to elevated lft's. dm : fs with coverage aviod coverage below 200 mg/dl. anxiety: continue sertraline. Drug use: drug screen positive -opioid, fentanyl, marijuana. Addiction saw the patient patient refused assistance. Currently not withdrawing. DVT prophylaxis:? SubQ Lovenox Patient will benefit from to midnight stays-toxic metabolic encephalopathy, acute hypoxemic respiratory failure- secondary to considering drug intoxication, AFib with RVR,-need antiarrhythmics, also IV steroids for question of pneumonitis. Time Spent With Patient Time: Total time managing care of this patient today ____ minutes. Quality Stroke Does the patient have a stroke diagnosis?: No VTE Prior VTE?: No VTE Risk Level:: Medical - moderate - high VTE Device Contraindication: N/A - Device Ordered VTE Drug Contraindication: N/A - Med Ordered
[2023-01-01] MEDS: Ampicillin Sodium/Sulbactam Na 3 GM in 0.9 % Sodium Chloride 100 ML IV (18:35)
[2023-01-01 20:01] LABS: Glucose, Whole Blood 279 mg/dL (60-115)
[2023-01-01] MEDS: Ibuprofen 600 MG TABLET PO (20:22)
[2023-01-02] VITALS (12 sets, daily range): BP systolic 135–190; BP diastolic 75–108; PULSE 91–118; RESP 17–20; TEMP 36.3–36.9; O2SAT 92–97
[2023-01-02] MEDS: 0.9 % Sodium Chloride Flush 3 ML SYRINGE IVFLUSH ×2 (00:25→20:14)
[2023-01-02] MEDS: Ampicillin Sodium/Sulbactam Na 3 GM in 0.9 % Sodium Chloride 100 ML IV ×5 (00:25→23:27)
[2023-01-02] MEDS: Lactated Ringers 1,000 ML 80 ML IVCONT (06:23)
[2023-01-02] MEDS: Enoxaparin Sodium 100 MG/ML SYRINGE 90 MG SUBCUT ×2 (06:24→18:01)
[2023-01-02 07:03] LABS: Hemoglobin 12.7 g/dl (14.0-18.0); Mean Corpuscular HGB Conc 35.3 g/dl (31.0-36.0); Mean Corpuscular Hemoglobin 31.3 pg (27.0-33.0); Mean Corpuscular Volume 88.7 fL (80.0-98.0); Mean Platelet Volume 11.1 fL (9.4-12.4); Platelet Count 176 X10*3/uL (160-400); Red Blood Count 4.06 X10*6/uL (4.60-5.80); Red Cell Distribution Width 11.9 % (11.0-16.0); White Blood Count 8.4 X10*3/uL (4.8-10.8)
[2023-01-02 07:21] LABS: Alanine Aminotransferase 94 U/L (0-40); Albumin Level 3.9 g/dL (3.5-5.0); Alkaline Phosphatase 59 U/L (39-117); Anion Gap 13 (12-20); Aspartate Amino Transferase 101 U/L (5-37); Blood Urea Nitrogen 15 mg/dL (9-16); Calcium 9.4 mg/dL (8.4-10.2); Carbon Dioxide 25 mmol/L (22-29); Chloride 104 mmol/L (96-108); Estimated Glomerular Filt Rate > 60; Glucose Random 246 mg/dL (60-115); Sodium 138 mmol/L (135-145); Total Protein 6.8 g/dL (6.5-8.0)
[2023-01-02 07:55] LABS: Glucose, Whole Blood 232 mg/dL (60-115)
[2023-01-02] MEDS: Insulin Lispro 100 UNIT/ML 3 ML VIAL SUBCUT ×4 (08:02→20:12)
[2023-01-02] MEDS: dilTIAZem HCL 30 MG TABLET PO ×4 (08:02→20:11)
[2023-01-02] MEDS: Sertraline HCL 50 MG TABLET PO (08:02)
[2023-01-02] MEDS: Fenofibrate 54 MG TABLET PO (08:02)
[2023-01-02] MEDS: Albuterol/Iprat 2.5/0.5MG 3 ML AMPUL.NEB INHALE ×4 (08:15→19:46)
[2023-01-02 11:41] LABS: Glucose, Whole Blood 219 mg/dL (60-115)
--- NOTE | 2023-01-02 13:35 | ECG_ITS ---
Test Reason : syncope Blood Pressure : / mmHG Vent. Rate : 108 BPM Atrial Rate : 108 BPM P-R Int : 156 ms QRS Dur : 098 ms QT Int : 334 ms P-R-T Axes : 051 063 000 degrees QTc Int : 447 ms Sinus tachycardia Otherwise normal ECG When compared with ECG of 31-DEC-2022 16:08, Sinus rhythm has replaced Atrial fibrillation Referred By: Yudi Mendez Electronically Signed By:Melecio Cesar
[2023-01-02 13:45] LABS: Glucose, Whole Blood 217 mg/dL (60-115)
[2023-01-02 14:11] LABS: Glucose, Whole Blood 202 mg/dL (60-115)
[2023-01-02] MEDS: LORazepam 2 MG/ML VIAL IVPUSH (14:57)
[2023-01-02] MEDS: methylPREDNISolone Sod Succ 40 MG/ML VIAL IVPUSH (15:04)
[2023-01-02 15:38] LABS: Glucose, Whole Blood 186 mg/dL (60-115)
--- NOTE | 2023-01-02 18:36 | P.PNIM_ITS ---
Subjective Subjective Date of Service: 01/03/23 Interval History: Hypoxia improved but had 2 episodes of seziures today and has been back to baseline since, no prior history of seizure Physical Exam Vital Signs: Vital Signs: Last Vital Signs Temp 98.5 F 01/02/23 15:18 Pulse 99 01/02/23 16:34 Resp 18 01/02/23 16:34 BP 152/86 H 01/02/23 15:18 Pulse Ox 96 01/02/23 15:18 O2 Del Method Nasal Cannula 01/02/23 15:18 O2 Flow Rate 3 01/02/23 14:00 Oxygen Flow Rate 3 01/02/23 14:00 BMI result Body Mass Index 30.2 Const: Other: General: AO X 3, no acute distress Resp: CTA bilateral CVS: S1,S2,RRR GI: +BS, NT, no distention Skin: No rash Neuro: motor grossly intact Psych: appropriate affect Objective Data Active Medications Acetaminophen (Acetaminophen 325 Mg Tablet) 650 mg PO Q6H PRN PRN Reason: Headache Albuterol/Ipratropium (Albuterol/Iprat 2.5/0.5mg 3 Ml Ampul.Neb) 3 ml INHALE RQ4H WHILE AWAKE [facility] Last Admin: 01/02/23 16:34 Dose: 3 ml Documented By: TOVA Diltiazem HCl (Diltiazem Hcl 30 Mg Tablet) 30 mg PO QID [facility]; Protocol Last Admin: 01/02/23 18:02 Dose: 30 mg Documented By: IVETTE Enoxaparin Sodium (Enoxaparin Sodium 100 Mg/Ml Syringe) 90 mg SUBCUT Q12H [facility] Last Admin: 01/02/23 18:01 Dose: 90 mg Documented By: IVETTE Fenofibrate (Fenofibrate 54 Mg Tablet) 54 mg PO DAILY [facility] Last Admin: 01/02/23 08:02 Dose: 54 mg Documented By: IVETTE Glucose (Glucose Gel 15 Gm Gel..Gram.) 15 gm PO Q15M PRN; Protocol PRN Reason: per Hypoglycemia Standing Ord. Dextrose (D10) 250 mls @ 750 mls/hr IV Q15M PRN; Protocol PRN Reason: per Hypoglycemia Standing Ord. Ampicillin Sodium/Sulbactam (Sodium 3 gm/ Sodium Chloride) 100 mls @ 200 mls/hr IV Q6H [facility] Last Admin: 01/02/23 18:02 Dose: 200 mls/hr Documented By: IVETTE Insulin Human Lispro (Insulin Lispro 100 Unit/Ml 3 Ml Vial) 0 unit SUBCUT QID ACHS [facility]; Protocol Last Admin: 01/02/23 15:51 Dose: 2 unit Documented By: IVETTE Methylprednisolone Sodium Succinate (Methylprednisolone Sod Succ 40 Mg/Ml Vial) 40 mg IVPUSH Q24H [facility] Last Admin: 01/02/23 15:04 Dose: 40 mg Documented By: IVETTE Naloxone HCl (Naloxone Hcl Nasal 4 Mg [place]) 4 mg NOSTRILALT ONCE PRN PRN Reason: sleepiness Ondansetron HCl (Ondansetron Hcl 4 Mg/2 Ml Vial) 4 mg IVPUSH Q8H PRN PRN Reason: Nausea and Vomiting Last Admin: 12/31/22 22:03 Dose: 4 mg Documented By: HIREN Pharmacy Consult (Consult Rx Perform Med Rec) 1 each MISCELLANE ONCE PRN PRN Reason: Consult order Sertraline HCl (Sertraline Hcl 50 Mg Tablet) 50 mg PO DAILY [facility] Last Admin: 01/02/23 08:02 Dose: 50 mg Documented By: IVETTE Sodium Chloride (0.9 % Sodium Chloride Flush 3 Ml Syringe) 3 ml IVFLUSH QSHIFT [facility] Last Admin: 01/02/23 17:16 Dose: Not Given Documented By: IVETTE Non-Admin Reason: Previously Administered Labs 01/02/23 06:17 01/02/23 06:17 Labs: Laboratory Results - last 24 hr 01/01/23 01/02/23 01/02/23 19:57 06:17 06:17 MCV 88.7 MCH 31.3 MCHC 35.3 RDW 11.9 Plt Count 176 D MPV 11.1 Absolute Nucleated RBC 0.000 Nucleated RBC % (auto) 0.0 Anion Gap 13 Estim Creat Clear Calc 113.0 Estimated GFR > 60 POC Glucose 279 H Random Glucose 246 H Calcium 9.4 D Total Bilirubin 1.0 AST 101 H ALT 94 H Alkaline Phosphatase 59 Troponin I High Sens Total Protein 6.8 Albumin 3.9 01/02/23 01/02/23 01/02/23 07:39 11:36 13:38 MCV MCH MCHC RDW Plt Count MPV Absolute Nucleated RBC Nucleated RBC % (auto) Anion Gap Estim Creat Clear Calc Estimated GFR POC Glucose 232 H 219 H 217 H Random Glucose Calcium Total Bilirubin AST ALT Alkaline Phosphatase Troponin I High Sens Total Protein Albumin 01/02/23 01/02/23 01/02/23 14:06 14:47 15:34 MCV MCH MCHC RDW Plt Count MPV Absolute Nucleated RBC Nucleated RBC % (auto) Anion Gap Estim Creat Clear Calc Estimated GFR POC Glucose 202 H 186 H Random Glucose Calcium Total Bilirubin AST ALT Alkaline Phosphatase Troponin I High Sens 27.0 Total Protein Albumin Assessment and Plan (1) Substance abuse: Status: Acute (2) Acute respiratory failure with hypoxemia: Status: Acute (3) Elevated liver function tests: Status: Acute (4) Drug overdose: Status: Acute Plan 52-year-old male IV drug use in the past-as per 7year? was clean, history of hypercholesteremia, diabetes, CAD:? Came with unresponsive episode-likely related to drug intoxication as above. unresponsive episode--attribubted to od but episodes today more c/w with seizure, seizure w/u with CT, EEG tomorrow Acute hypoxemic respiratory failure: Possible chemical pneumonitis vs asp pneumonia, CT shows infiltrate--but clinical presentation more c/w pneumonitis -hypoxia is better, wean off -steroid as recommended by pulmonology AFib with RVR:rate controlled on cardizem, change to long acting tomorrow. DC lovenox and start eliquis tomorrow Mild elevated borderline TSH:4.61, normal FT4 mild elevated lft's-? drug use improving ,moniter ,if still elevated -may need further workup hold statin and meds interfer with liver function HLp: Hold statin due to elevated lft's. dm :SSI anxiety: continue sertraline. Drug use: drug screen positive -opioid, fentanyl, marijuana. Addiction saw the patient patient refused assistance. Currently not withdrawing. ? seizure--Neuro consult, eeg tomorrow DVT prophylaxis:? SubQ Lovenox need for inpt: hypoxia, been weaned off O2, Time Spent With Patient Time: Total time managing care of this patient today ____ minutes. Quality Stroke Does the patient have a stroke diagnosis?: No VTE Prior VTE?: No VTE Risk Level:: Medical - moderate - high VTE Device Contraindication: N/A - Device Ordered VTE Drug Contraindication: N/A - Med Ordered
[2023-01-02 19:24] LABS: Triiodothyronine T3 Free 3.3 pg/mL (2.3-4.2)
--- NOTE | 2023-01-02 19:26 | PC.NURSE ---
At 1334 rapid response was called to room 482, on arrival patient was found in the bathroom on the toilet c/o dizziness. Patient was unable to move himself and was wheeled out to the room back to bed in wheelchair. Patient was not responding to verbal stimuli, but did respond to sternal rub. VSS taken at 1339 with BP 191/98, 108 HR and 94% on 3L NC. POC was 217. Dr. Adam orderd EKG and CT of the head. Patient family was asked to wait outside of the room. 5 min later VSS were rechecked with BP of 190/102 HR 111, patient was getting prepared for CT scan. At 1404 rapid response was called to room 482 again, VSS done again BP 181/104 HR 109 Temp 98.3 O2 94% on 3L NC. POC 202 - patient was responding to verbal stimuli, provider ordered Ativan and additional urine testing.
[2023-01-02 19:37] LABS: Glucose, Whole Blood 425 mg/dL (60-115)
[2023-01-02 19:49] LABS: Appearance Urine Clear; Color Urine Yellow; Glucose Urine UA >=1000 mg/dL (Negative); Leukocyte Esterase Urine Negative (Negative); Nitrite Urine Negative (Negative); Specific Gravity - Urine 1.025 (1.005-1.025); UMIC TRIGGER UACC YES; Urine Blood Negative (Negative); Urine Ketones Negative (Negative); Urine Protein 30 (1+) mg/dL (Neg-Trace)
[2023-01-02 19:52] LABS: Bacteria Urine None Seen (None Seen); Hyaline Casts Urine 0-2 /LPF (0-2); RBC Urine 0-2 /HPF (0-2); Squamous Epithelial Cell Urine 0-2 /HPF (0-2); WBC Urine 0-5 /HPF (0-5)
[2023-01-02 20:00] LABS: Amphetamine Screen Urine Not Detected (Not Detect); Barbiturates, Urine Not Detected (Not Detect); Benzodiazepines Screen Urine Not Detected (Not Detect); Cannabinoid Screen Urine POSITIVE (Not Detect); Cocaine Screen Urine Not Detected (Not Detect); Fentanyl, urine POSITIVE (Not Detect); Opiate Screen Urine Not Detected (Not Detect); Phencyclidine Screen Urine Not Detected (Not Detect)
[2023-01-03] VITALS (8 sets, daily range): BP systolic 131–165; BP diastolic 81–99; PULSE 83–101; RESP 16–20; TEMP 36.4–37.3; O2SAT 94–98
--- NOTE | 2023-01-03 | ECG_ITS ---
Test Reason : cp Blood Pressure : / mmHG Vent. Rate : 102 BPM Atrial Rate : 102 BPM P-R Int : 138 ms QRS Dur : 090 ms QT Int : 350 ms P-R-T Axes : 056 072 007 degrees QTc Int : 456 ms Sinus tachycardia Otherwise normal ECG When compared with ECG of 02-JAN-2023 13:35, No significant change was found Referred By: Dolores Kunz Electronically Signed By:Melecio Cesar
--- NOTE | 2023-01-03 | EEG_ITS ---
This is a 16 channel EEG with an EKG lead. The patient is reported awake during the tracing. Background EEG rhythm is low amplitude fast with no obvious asymmetry or paroxysmal tendency. Photic stimulation does not produce any significant abnormality. Hyperventilation is not performed. Cardiac lead does not reveal any significant abnormality. No sharp wave spikes or paroxysmal tendency noted. IMPRESSION: Unremarkable EEG. MD CLARENCE Nunez/ALLYN / [id number]
[2023-01-03] MEDS: Ibuprofen 400 MG TABLET PO (03:37)
--- NOTE | 2023-01-03 05:08 | PC.NURSE ---
Pt seen in room with ,alert and oriented,cheerful, tolerating O2at 2/min via NC, MTU=730, Dr. Kunz was notified, and sliding scale of Lispro 10 units SC given. Around 2300 pt c/o reproducible pain scross hischest 10/10 and worsened with coughing, refused to take Tylenol, Dr. Kunz was made aware and said no need for EKG. At 0320 pt woke up again with same nature of chest pain, and SOB, O2 sats was 95% with 2L/min via NC, Dr. Kunz was made aware, Motrin po was given, pt slept after.
[2023-01-03] MEDS: Ampicillin Sodium/Sulbactam Na 3 GM in 0.9 % Sodium Chloride 100 ML IV ×3 (05:28→19:16)
[2023-01-03 07:38] LABS: Glucose, Whole Blood 234 mg/dL (60-115)
[2023-01-03] MEDS: Albuterol/Iprat 2.5/0.5MG 3 ML AMPUL.NEB INHALE ×2 (07:52→20:01)
[2023-01-03] MEDS: Insulin Lispro 100 UNIT/ML 3 ML VIAL SUBCUT ×4 (08:01→20:38)
[2023-01-03] MEDS: 0.9 % Sodium Chloride Flush 3 ML SYRINGE IVFLUSH ×2 (08:02→17:07)
[2023-01-03] MEDS: Fenofibrate 54 MG TABLET PO (08:02)
[2023-01-03] MEDS: Sertraline HCL 50 MG TABLET PO (08:02)
[2023-01-03] MEDS: dilTIAZem HCL 30 MG TABLET PO ×4 (08:02→20:37)
[2023-01-03] MEDS: Apixaban 5 MG TABLET PO ×2 (08:02→20:37)
--- NOTE | 2023-01-03 10:38 | MHC.CM.PN ---
EMR REVIEWED, EGD DONE THIS AM, PER HOSPITALIST ANTIC PT WILL BE CLEARED FRO D/C TOMORROW, DCP RETURN TO LOCAL FAMILY W/PT ARRANGING OWN TRANSPORT.
--- NOTE | 2023-01-03 11:00 | MHC.RECOVRN ---
Met with pt and family after request for community resources/support options. Pt and inform t/w that they will not be returning to [place] due to lack of accessibility to proper healthcare. Pts reports she is looking for information regarding housing, local PCPs, psychiatry, etc. Pt and family aware t/w is from Recovery Support [facility] and provided resources pertaining to addiction and recovery. Pt is not interested in [facility], however, interested in meetings and other supports. Pt denies other questions/concerns for t/w. CM notified that pt will be staying in the area and is looking for additional resources.
[2023-01-03 11:33] LABS: Glucose, Whole Blood 218 mg/dL (60-115)
--- NOTE | 2023-01-03 12:53 | PM.PNCARD ---
Subjective Subjective Date of Service: 01/03/23 Interval history: Seen examined at bedside. He was overall improved. It appears he had seizure-like activity yesterday. Physical Exam Vital Signs: Last Vital Signs Temp 99.1 F 01/03/23 11:04 Pulse 101 H 01/03/23 11:04 Resp 20 01/03/23 11:04 BP 145/97 H 01/03/23 11:04 Pulse Ox 98 01/03/23 11:04 O2 Del Method Nasal Cannula 01/03/23 11:04 O2 Flow Rate 4 01/03/23 11:04 Oxygen Flow Rate 3 01/02/23 14:00 BMI result Body Mass Index 30.2 GENERAL APPEARANCE: Short of breath. On nasal cannula. SKIN: no suspicious lesions, warm and dry. HEART: no murmurs, regular rate and rhythm. LUNGS: clear to auscultation bilaterally. ABDOMEN: soft, nontender. EXTREMITIES: no edema. PERIPHERAL PULSES: equal. NEUROLOGIC: No gross deficits, AAO X 3 Objective Labs and Meds 01/02/23 06:17 01/02/23 06:17 Lab results: Laboratory Results - last 24 hr 12/31/22 01/02/23 01/02/23 13:59 13:38 14:06 POC Glucose 217 H 202 H Troponin I High Sens Free T3 3.3 Urine Color Urine Appearance Urine pH Ur Specific [place] Urine Protein Urine Glucose (UA) Urine Ketones Urine Blood Urine Nitrite Ur Leukocyte Esterase Urine RBC Urine WBC Ur Squamous Epith Cells Urine Bacteria Hyaline Casts Urine Opiates Screen Urine Fentanyl Screen Ur Barbiturates Screen Ur Phencyclidine Scrn Ur Amphetamines Screen U Benzodiazepines Scrn Urine Cocaine Screen U Marijuana (THC) Screen 01/02/23 01/02/23 01/02/23 14:47 15:34 19:30 POC Glucose 186 H 425 H* Troponin I High Sens 27.0 Free T3 Urine Color Urine Appearance Urine pH Ur Specific [place] Urine Protein Urine Glucose (UA) Urine Ketones Urine Blood Urine Nitrite Ur Leukocyte Esterase Urine RBC Urine WBC Ur Squamous Epith Cells Urine Bacteria Hyaline Casts Urine Opiates Screen Urine Fentanyl Screen Ur Barbiturates Screen Ur Phencyclidine Scrn Ur Amphetamines Screen U Benzodiazepines Scrn Urine Cocaine Screen U Marijuana (THC) Screen 01/02/23 01/02/23 01/03/23 Unknown Unknown 07:33 POC Glucose 234 H Troponin I High Sens Free T3 Urine Color Yellow Urine Appearance Clear Urine pH 8.0 Ur Specific [place] 1.025 Urine Protein 30 (1+) H Urine Glucose (UA) >=1000 H Urine Ketones Negative Urine Blood Negative Urine Nitrite Negative Ur Leukocyte Esterase Negative Urine RBC 0-2 Urine WBC 0-5 Ur Squamous Epith Cells 0-2 Urine Bacteria None Seen Hyaline Casts 0-2 Urine Opiates Screen Not Detected Urine Fentanyl Screen POSITIVE H Ur Barbiturates Screen Not Detected Ur Phencyclidine Scrn Not Detected Ur Amphetamines Screen Not Detected U Benzodiazepines Scrn Not Detected Urine Cocaine Screen Not Detected U Marijuana (THC) Screen POSITIVE H 01/03/23 11:08 POC Glucose 218 H Troponin I High Sens Free T3 Urine Color Urine Appearance Urine pH Ur Specific [place] Urine Protein Urine Glucose (UA) Urine Ketones Urine Blood Urine Nitrite Ur Leukocyte Esterase Urine RBC Urine WBC Ur Squamous Epith Cells Urine Bacteria Hyaline Casts Urine Opiates Screen Urine Fentanyl Screen Ur Barbiturates Screen Ur Phencyclidine Scrn Ur Amphetamines Screen U Benzodiazepines Scrn Urine Cocaine Screen U Marijuana (THC) Screen Imaging Radiologist's impression: Impressions Head CT 01/02/23 14:37 IMPRESSION: No evidence of acute intracranial hemorrhage or edematous territorial infarction. Paranasal sinus disease, correlate clinically. Progress Note: A&P Assessment and plan (1) Substance abuse: Status: Acute (2) PAF (paroxysmal atrial fibrillation): Status: Acute Plan 52-year-old gentleman with drug overdose and aspiration pneumonia. On antibiotics. Still on supplemental oxygen. He had AFib with RVR due to hypoxia which has resolved. He is on apixaban which should be continued. Diltiazem can be changed to 120 mg CD. Cardiovascular point of view is stable. He has been experiencing some seizure-like activity. Can be discharged as he improves. From cardiovascular point of view no further recommendations and we are signing off. Thank you for allowing me to participate in the care of your patient. Please feel free to contact me if you have any questions. Time Spent With Patient Time: Total time managing care of this patient today ____ minutes. Progress Note: Quality Stroke Does the patient have a stroke diagnosis?: No Procedures Date of Service Date of Service: 01/03/23
--- NOTE | 2023-01-03 14:27 | PM.NEUROCN ---
History of Present Illness Data of Consult Service Date: 01/03/23 Primary Care Provider: Unknown Physician HPI Reason for consult: Encephalopathy 52 years old man with drug abuse who was noted to be unresponsive and apparently had CPR done by somebody outside. It was not clear how long he was unresponsive. His tox screen was positive for fentanyl and marijuana. There was no witnessing of any convulsion or seizure-like episode. He was not febrile. Review of Systems Review of Systems: No recent cold or flu-like illness. [facility] Social History Social History (Updated 12/31/22 @ 16:46 by Remy Judge MD) Household Members: Spouse and Children Unable to assess alcohol history related to: Refusing to respond Alcohol intake: former Patient Tobacco Use Status: Former Tobacco user Substance Use Type: Former Substance User service: No Current occupational status: employed Meds Allergies Allergy/AdvReac Type Severity Reaction Status Date / Time No Known Allergies Allergy Verified 12/31/22 13:38 [No Known Allergies*] Active Medications: Current Medications Acetaminophen (Acetaminophen 325 Mg Tablet) 650 mg PO Q6H PRN PRN Reason: Headache Albuterol/Ipratropium (Albuterol/Iprat 2.5/0.5mg 3 Ml Ampul.Neb) 3 ml INHALE RQ4H WHILE AWAKE [facility] Last Admin: 01/03/23 11:41 Dose: Not Given Apixaban (Apixaban 5 Mg Tablet) 5 mg PO BID [facility] Last Admin: 01/03/23 08:02 Dose: 5 mg Diltiazem HCl (Diltiazem Hcl 30 Mg Tablet) 30 mg PO QID [facility]; Protocol Last Admin: 01/03/23 12:39 Dose: 30 mg Fenofibrate (Fenofibrate 54 Mg Tablet) 54 mg PO DAILY [facility] Last Admin: 01/03/23 08:02 Dose: 54 mg Glucose (Glucose Gel 15 Gm Gel..Gram.) 15 gm PO Q15M PRN; Protocol PRN Reason: per Hypoglycemia Standing Ord. Dextrose (D10) 250 mls @ 750 mls/hr IV Q15M PRN; Protocol PRN Reason: per Hypoglycemia Standing Ord. Ampicillin Sodium/Sulbactam (Sodium 3 gm/ Sodium Chloride) 100 mls @ 200 mls/hr IV Q6H [facility] Last Infusion: 01/03/23 13:07 Dose: Infused Insulin Human Lispro (Insulin Lispro 100 Unit/Ml 3 Ml Vial) 0 unit SUBCUT QIDACHS [facility]; Protocol Last Admin: 01/03/23 12:38 Dose: 4 unit Methylprednisolone Sodium Succinate (Methylprednisolone Sod Succ 40 Mg/Ml Vial) 40 mg IVPUSH Q24H [facility] Last Admin: 01/02/23 15:04 Dose: 40 mg Naloxone HCl (Naloxone Hcl Nasal 4 Mg [place]) 4 mg NOSTRILALT ONCE PRN PRN Reason: sleepiness Ondansetron HCl (Ondansetron Hcl 4 Mg/2 Ml Vial) 4 mg IVPUSH Q8H PRN PRN Reason: Nausea and Vomiting Last Admin: 12/31/22 22:03 Dose: 4 mg Pharmacy Consult (Consult Rx Perform Med Rec) 1 each MISCELLANE ONCE PRN PRN Reason: Consult order Sertraline HCl (Sertraline Hcl 50 Mg Tablet) 50 mg PO DAILY [facility] Last Admin: 01/03/23 08:02 Dose: 50 mg Sodium Chloride (0.9 % Sodium Chloride Flush 3 Ml Syringe) 3 ml IVFLUSH QSHIFT [facility] Last Admin: 01/03/23 08:02 Dose: 3 ml Home Medications Medication Instructions Recorded Confirmed Last Taken Type fenofibrate 54 mg tablet 54 mg PO DAILY 12/31/22 12/31/22 12/30/22 History metformin 1,000 mg tablet 1,000 mg PO BID 12/31/22 12/31/22 12/30/22 History naproxen sodium 220 mg tablet 440 mg PO BID PRN Pain 12/31/22 12/31/22 Unknown History (Aleve) propranolol 10 mg tablet 10 mg PO BID PRN chest pain / 12/31/22 12/31/22 12/30/22 History anxiety rosuvastatin 20 mg tablet 20 mg PO BEDTIME 12/31/22 12/31/22 12/30/22 History sertraline 50 mg tablet 50 mg PO DAILY 12/31/22 12/31/22 12/30/22 History testosterone cypionate 200 mg/mL 100 mg IM QWEEK 12/31/22 12/31/22 12/28/22 History intramuscular kit Physical Exam Vital Signs: Vital Signs: Last Vital Signs Temp 99.1 F 01/03/23 13:51 Pulse 101 H 01/03/23 13:51 Resp 20 01/03/23 13:51 BP 145/97 H 01/03/23 13:51 Pulse Ox 98 01/03/23 13:51 O2 Del Method Nasal Cannula 01/03/23 13:51 O2 Flow Rate 4 01/03/23 13:51 Oxygen Flow Rate 4 01/03/23 13:51 BMI result Body Mass Index 30.2 Neuro: Other: Alert and awake with vague affect. The did not take part in conversation that much but followed one-step commands. There was no obvious focal weakness. Facial expression were somewhat flat. Deep tendon reflexes were trace. Results Labs 01/02/23 06:17 01/02/23 06:17 Labs: Urine 01/02/23 Range/Units Unknown Urine Color Yellow Urine Appearance Clear Urine pH 8.0 (5.0-9.0) Ur Specific [place] 1.025 (1.005-1.025) Urine Protein 30 (1+) H (Neg-Trace) mg/dL Urine Glucose (UA) >=1000 H (Negative) mg/dL head CT did not reveal any significant abnormality per Assessment and Plan (1) Encephalopathy: Status: Acute 52 years old man probably with toxic encephalopathy. He was also noted to be in atrial fibrillation. At least fentanyl and marijuana were confirmed with his tox screen. He might have taken more than that. At this time conservative measures are recommended. If persistent atrial fibrillation is the diagnosis, he should also be treated accordingly with anticoagulation. I would also recommend a noncontrast MRI to put some light into his mental status. Sometime patients have vasospastic syndrome, which might explain his mental status. Time Spent With Patient Time: Total time managing care of this patient today ____ minutes. Procedures Date of Service Date of Service: 01/03/23
[2023-01-03] MEDS: methylPREDNISolone Sod Succ 40 MG/ML VIAL IVPUSH (14:40)
--- NOTE | 2023-01-03 15:37 | MHC.CM.PN ---
CM MET W/PT AT BEDSIDE WHO HAD DIFFICULTY ANSWERING QUESTIONS AND REQUESTED CM SPEAK TO HIS GERARDO [phone], CM CONFIRMED PT'S BLUE CROSS IS THROUGH HIS JOB IN [place] HOWEVER GERARDO REPORTS THEY ARE NOT RETURNING TO [place] AND PT WILL NEVER BE ABLE TO WORK AGAIN AND THEY WILL NEED FMLA, HOUSING, DISABILITY, M[employer] ETC. CM DID CONTACT HOSPITALIST WHO REPORTED THERE IS NO REASON TO THINK THE PT WILL NOT RECOVER AND BE ABLE TO RETURN TO WORK, HOSPITALIST ALSO REPORTS THAT IT IS VERY PREMATURE TO BE THINKING ABOUT DISABILITY. CM WILL REVIST W/PT AND GERARDO IN AM.
[2023-01-03 16:03] LABS: Glucose, Whole Blood 296 mg/dL (60-115)
--- NOTE | 2023-01-03 17:11 | P.PNIM_ITS ---
Subjective Subjective Date of Service: 01/03/23 Interval History: Hypoxia seem improved, had another episode of what maybe or not seizure, hadd EEG earlier that was unremarkalbe Physical Exam Vital Signs: Vital Signs: Last Vital Signs Temp 98.0 F 01/03/23 15:01 Pulse 91 01/03/23 15:01 Resp 18 01/03/23 15:01 BP 159/99 H 01/03/23 15:01 Pulse Ox 95 01/03/23 15:01 O2 Del Method Nasal Cannula 01/03/23 15:01 O2 Flow Rate 4 01/03/23 15:01 Oxygen Flow Rate 4 01/03/23 13:51 BMI result Body Mass Index 30.2 Const: Other: General: AO X 3, no acute distress Resp: CTA bilateral CVS: S1,S2,RRR GI: +BS, NT, no distention Skin: No rash Neuro: motor grossly intact Psych: appropriate affect Objective Data Active Medications Acetaminophen (Acetaminophen 325 Mg Tablet) 650 mg PO Q6H PRN PRN Reason: Headache Albuterol/Ipratropium (Albuterol/Iprat 2.5/0.5mg 3 Ml Ampul.Neb) 3 ml INHALE RQ4H WHILE AWAKE [facility] Last Admin: 01/03/23 15:19 Dose: Not Given Documented By: IVORY Non-Admin Reason: Patient Asleep Apixaban (Apixaban 5 Mg Tablet) 5 mg PO BID [facility] Last Admin: 01/03/23 08:02 Dose: 5 mg Documented By: JANNET Diltiazem HCl (Diltiazem Hcl 30 Mg Tablet) 30 mg PO QID [facility]; Protocol Last Admin: 01/03/23 17:07 Dose: 30 mg Documented By: AILYN Fenofibrate (Fenofibrate 54 Mg Tablet) 54 mg PO DAILY [facility] Last Admin: 01/03/23 08:02 Dose: 54 mg Documented By: JANNET Glucose (Glucose Gel 15 Gm Gel..Gram.) 15 gm PO Q15M PRN; Protocol PRN Reason: per Hypoglycemia Standing Ord. Dextrose (D10) 250 mls @ 750 mls/hr IV Q15M PRN; Protocol PRN Reason: per Hypoglycemia Standing Ord. Ampicillin Sodium/Sulbactam (Sodium 3 gm/ Sodium Chloride) 100 mls @ 200 mls/hr IV Q6H [facility] Last Infusion: 01/03/23 13:07 Dose: 0 mls/hr Documented By: JANNET Insulin Human Lispro (Insulin Lispro 100 Unit/Ml 3 Ml Vial) 0 unit SUBCUT QIDACHS [facility]; Protocol Last Admin: 01/03/23 17:06 Dose: 6 unit Documented By: AILYN Methylprednisolone Sodium Succinate (Methylprednisolone Sod Succ 40 Mg/Ml Vial) 40 mg IVPUSH Q24H [facility] Last Admin: 01/03/23 14:40 Dose: 40 mg Documented By: JANNET Naloxone HCl (Naloxone Hcl Nasal 4 Mg [place]) 4 mg NOSTRILALT ONCE PRN PRN Reason: sleepiness Ondansetron HCl (Ondansetron Hcl 4 Mg/2 Ml Vial) 4 mg IVPUSH Q8H PRN PRN Reason: Nausea and Vomiting Last Admin: 12/31/22 22:03 Dose: 4 mg Documented By: HIREN Pharmacy Consult (Consult Rx Perform Med Rec) 1 each MISCELLANE ONCE PRN PRN Reason: Consult order Sertraline HCl (Sertraline Hcl 50 Mg Tablet) 50 mg PO DAILY [facility] Last Admin: 01/03/23 08:02 Dose: 50 mg Documented By: JANNET Sodium Chloride (0.9 % Sodium Chloride Flush 3 Ml Syringe) 3 ml IVFLUSH QSHIFT [facility] Last Admin: 01/03/23 17:07 Dose: 3 ml Documented By: AILYN Labs 01/02/23 06:17 01/02/23 06:17 Labs: Laboratory Results - last 24 hr 12/31/22 01/02/23 01/02/23 13:59 19:30 Unknown POC Glucose 425 H* Free T3 3.3 Urine Color Urine Appearance Urine pH Ur Specific [place] Urine Protein Urine Glucose (UA) Urine Ketones Urine Blood Urine Nitrite Ur Leukocyte Esterase Urine RBC Urine WBC Ur Squamous Epith Cells Urine Bacteria Hyaline Casts Urine Opiates Screen Not Detected Urine Fentanyl Screen POSITIVE H Ur Barbiturates Screen Not Detected Ur Phencyclidine Scrn Not Detected Ur Amphetamines Screen Not Detected U Benzodiazepines Scrn Not Detected Urine Cocaine Screen Not Detected U Marijuana (THC) Screen POSITIVE H 01/02/23 01/03/23 01/03/23 Unknown 07:33 11:08 POC Glucose 234 H 218 H Free T3 Urine Color Yellow Urine Appearance Clear Urine pH 8.0 Ur Specific [place] 1.025 Urine Protein 30 (1+) H Urine Glucose (UA) >=1000 H Urine Ketones Negative Urine Blood Negative Urine Nitrite Negative Ur Leukocyte Esterase Negative Urine RBC 0-2 Urine WBC 0-5 Ur Squamous Epith Cells 0-2 Urine Bacteria None Seen Hyaline Casts 0-2 Urine Opiates Screen Urine Fentanyl Screen Ur Barbiturates Screen Ur Phencyclidine Scrn Ur Amphetamines Screen U Benzodiazepines Scrn Urine Cocaine Screen U Marijuana (THC) Screen 01/03/23 15:50 POC Glucose 296 H Free T3 Urine Color Urine Appearance Urine pH Ur Specific [place] Urine Protein Urine Glucose (UA) Urine Ketones Urine Blood Urine Nitrite Ur Leukocyte Esterase Urine RBC Urine WBC Ur Squamous Epith Cells Urine Bacteria Hyaline Casts Urine Opiates Screen Urine Fentanyl Screen Ur Barbiturates Screen Ur Phencyclidine Scrn Ur Amphetamines Screen U Benzodiazepines Scrn Urine Cocaine Screen U Marijuana (THC) Screen Assessment and Plan (1) PAF (paroxysmal atrial fibrillation): Status: Acute (2) Acute respiratory failure with hypoxemia: Status: Acute Plan 52-year-old male IV drug use in the past-as per 7year? was clean, history of hypercholesteremia, diabetes, CAD:? Came with unresponsive episode-likely related to drug intoxication as above. unresponsive episode--attribubted to od but episodes today more c/w with seizure, seizure w/u with CT, EEG tomorrow Acute hypoxemic respiratory failure: Possible chemical pneumonitis vs asp pneumonia, CT shows infiltrate--but clinical presentation more c/w pneumonitis -hypoxia is better, wean off -steroid as recommended by pulmonology AFib with RVR:rate controlled on cardizem, change to long acting tomorrow. DC lovenox and start eliquis tomorrow Mild elevated borderline TSH:4.61, normal FT4 mild elevated lft's-? drug use improving ,moniter ,if still elevated -may need further workup hold statin and meds interfer with liver function HLp: Hold statin due to elevated lft's. dm :SSI anxiety: continue sertraline. Drug use: drug screen positive -opioid, fentanyl, marijuana. Addiction saw the patient patient refused assistance. Currently not withdrawing. ? seizure--neuro recommends MRI, ativan seems to work for the episode DVT prophylaxis:? SubQ Lovenox need for inpt: hypoxia, been weaned off O2, Time Spent With Patient Time: Total time managing care of this patient today ____ minutes. Quality Stroke Does the patient have a stroke diagnosis?: No VTE Prior VTE?: No VTE Risk Level:: Medical - moderate - high VTE Device Contraindication: N/A - Device Ordered VTE Drug Contraindication: N/A - Med Ordered
[2023-01-03 20:12] LABS: Glucose, Whole Blood 299 mg/dL (60-115)
[2023-01-03] MEDS: Ketorolac Tromethamine 15 MG/ML VIAL IVPUSH (20:38)
[2023-01-03 21:05] LABS: Troponin-I High Sensitivity 7.2 ng/L (<3.5-35.0)
[2023-01-04] VITALS (9 sets, daily range): BP systolic 123–163; BP diastolic 82–99; PULSE 72–121; RESP 16–19; TEMP 36.3–37.1; O2SAT 93–99
[2023-01-04] MEDS: Ampicillin Sodium/Sulbactam Na 3 GM in 0.9 % Sodium Chloride 100 ML IV ×5 (00:24→23:42)
[2023-01-04] MEDS: 0.9 % Sodium Chloride Flush 3 ML SYRINGE IVFLUSH ×4 (00:33→20:41)
[2023-01-04] MEDS: Albuterol/Iprat 2.5/0.5MG 3 ML AMPUL.NEB INHALE ×2 (07:41→11:49)
[2023-01-04 07:45] LABS: Glucose, Whole Blood 208 mg/dL (60-115)
[2023-01-04] MEDS: Apixaban 5 MG TABLET PO ×2 (08:15→20:39)
[2023-01-04] MEDS: Sertraline HCL 50 MG TABLET PO (08:15)
[2023-01-04] MEDS: Insulin Lispro 100 UNIT/ML 3 ML VIAL SUBCUT ×4 (08:15→20:39)
[2023-01-04] MEDS: Fenofibrate 54 MG TABLET PO (08:15)
[2023-01-04] MEDS: dilTIAZem HCL 30 MG TABLET PO ×4 (08:15→20:39)
[2023-01-04 11:37] LABS: Glucose, Whole Blood 163 mg/dL (60-115)
[2023-01-04] MEDS: methylPREDNISolone Sod Succ 40 MG/ML VIAL IVPUSH (11:49)
[2023-01-04] MEDS: Butalb/Acetamin/Caff 50/325/40 TABLET 1 TAB PO (12:00)
[2023-01-04] MEDS: Haloperidol Lactate 5 MG/ML VIAL 10 MG IM (14:23)
[2023-01-04] MEDS: LORazepam 2 MG/ML VIAL 1 MG IM (14:24)
[2023-01-04 16:18] LABS: Glucose, Whole Blood 398 mg/dL (60-115)
--- NOTE | 2023-01-04 17:13 | P.PNIM_ITS ---
Subjective Subjective Date of Service: 01/04/23 Interval History: Episode of ?pseudo seizure? this p.m.. Given Ativan 1 mg and Haldol 10 mg with excellent results. Shortly thereafter patient conversant and cooperative Review of Systems Denies chest pain Denies shortness of breath Denies nausea vomiting diarrhea Denies fever chills Physical Exam Vital Signs: Vital Signs: Last Vital Signs Temp 98.8 F 01/04/23 15:44 Pulse 93 01/04/23 15:44 Resp 18 01/04/23 15:44 BP 138/82 01/04/23 15:44 Pulse Ox 93 01/04/23 15:44 O2 Del Method Room Air 01/04/23 15:44 O2 Flow Rate 2 01/04/23 00:00 Oxygen Flow Rate 4 01/03/23 13:51 BMI result Body Mass Index 30.2 Const: Other: Awake alert no acute distress Resp: Other: Clear to auscultation bilaterally no rales rhonchi wheezes Cardio: Other: No S4; positive S1-S2; no S3 murmurs rubs or gallops GI: Other: Soft nontender nondistended normoactive bowel sounds Neuro: Other: Cranial nerves 2-12 grossly intact as tested. Motor 5/5 all extremities sensation intact cognition appropriate Objective Data Active Medications Acetaminophen (Acetaminophen 325 Mg Tablet) 650 mg PO Q6H PRN PRN Reason: Headache Acetaminophen/Butalbital/Caffeine (Butalb/Acetamin/Caff 50/325/40 Tablet) 1 tab PO Q4H PRN PRN Reason: Headache Albuterol/Ipratropium (Albuterol/Iprat 2.5/0.5mg 3 Ml Ampul.Neb) 3 ml INHALE RQ4H WHILE AWAKE [facility] Last Admin: 01/04/23 15:58 Dose: Not Given Documented By: IVORY Non-Admin Reason: Elevated Heart Rate Apixaban (Apixaban 5 Mg Tablet) 5 mg PO BID [facility] Last Admin: 01/04/23 08:15 Dose: 5 mg Documented By: JULIÁN Diltiazem HCl (Diltiazem Hcl 30 Mg Tablet) 30 mg PO QID [facility]; Protocol Last Admin: 01/04/23 16:44 Dose: 30 mg Documented By: JULIÁN Fenofibrate (Fenofibrate 54 Mg Tablet) 54 mg PO DAILY [facility] Last Admin: 01/04/23 08:15 Dose: 54 mg Documented By: JULIÁN Glucose (Glucose Gel 15 Gm Gel..Gram.) 15 gm PO Q15M PRN; Protocol PRN Reason: per Hypoglycemia Standing Ord. Dextrose (D10) 250 mls @ 750 mls/hr IV Q15M PRN; Protocol PRN Reason: per Hypoglycemia Standing Ord. Ampicillin Sodium/Sulbactam (Sodium 3 gm/ Sodium Chloride) 100 mls @ 200 mls/hr IV Q6H [facility] Last Admin: 01/04/23 16:47 Dose: 200 mls/hr Documented By: JULIÁN Insulin Human Lispro (Insulin Lispro 100 Unit/Ml 3 Ml Vial) 0 unit SUBCUT QIDACHS [facility]; Protocol Last Admin: 01/04/23 16:44 Dose: 10 unit Documented By: JULIÁN Methylprednisolone Sodium Succinate (Methylprednisolone Sod Succ 40 Mg/Ml Vial) 40 mg IVPUSH Q24H [facility] Last Admin: 01/04/23 11:49 Dose: 40 mg Documented By: JULIÁN Naloxone HCl (Naloxone Hcl Nasal 4 Mg [place]) 4 mg NOSTRILALT ONCE PRN PRN Reason: sleepiness Ondansetron HCl (Ondansetron Hcl 4 Mg/2 Ml Vial) 4 mg IVPUSH Q8H PRN PRN Reason: Nausea and Vomiting Last Admin: 12/31/22 22:03 Dose: 4 mg Documented By: HIREN Pharmacy Consult (Consult Rx Perform Med Rec) 1 each MISCELLANE ONCE PRN PRN Reason: Consult order Sertraline HCl (Sertraline Hcl 50 Mg Tablet) 50 mg PO DAILY [facility] Last Admin: 01/04/23 08:15 Dose: 50 mg Documented By: JULIÁN Sodium Chloride (0.9 % Sodium Chloride Flush 3 Ml Syringe) 3 ml IVFLUSH QSHIFT [facility] Last Admin: 01/04/23 16:44 Dose: 3 ml Documented By: JULIÁN Labs 01/02/23 06:17 01/02/23 06:17 Labs: Laboratory Results - last 24 hr 01/03/23 01/03/23 01/04/23 20:05 20:28 07:41 POC Glucose 299 H 208 H Troponin I High Sens 7.2 D 01/04/23 01/04/23 11:32 16:12 POC Glucose 163 H 398 H* Troponin I High Sens Assessment and Plan (1) Psychiatric pseudoseizure: Status: Acute (2) PAF (paroxysmal atrial fibrillation): Status: Acute (3) Diabetes: Status: Acute Plan 52-year-old male IV drug use in the past-as per 7year? was clean, history of hypercholesteremia, diabetes, CAD:? Came with unresponsive episode-likely related to drug intoxication as above. Now experiencing what appears to be pseudoseizures 1. Pseudo-seizure -will complete workup with MRI of head. EEG negative. -patient had excellent response to Ativan Haldol combination. (cooperative and calm thereafter) 2.Acute hypoxemic respiratory failure -resolved -no current O2 requirement 3.AFib with RVR -now in sinus rhythm -continue Cardizem q.i.d.. -switch to long-acting upon discharge 4.DMII -acceptable control on current therapies -lispro correctional scale Eliquis Full code Requires ongoing hospitalization to complete workup and rule out seizure disorder Time Spent With Patient Time: Total time managing care of this patient today ____ minutes. Quality Stroke Does the patient have a stroke diagnosis?: No VTE Prior VTE?: No VTE Risk Level:: Medical - moderate - high VTE Device Contraindication: N/A - Device Ordered VTE Drug Contraindication: N/A - Med Ordered
[2023-01-04 20:36] LABS: Glucose, Whole Blood 320 mg/dL (60-115)
[2023-01-05 02:55] VITALS: BP 128/76; PULSE 80; RESP 18; TEMP 36.9; O2SAT 98
[2023-01-05] MEDS: Ampicillin Sodium/Sulbactam Na 3 GM in 0.9 % Sodium Chloride 100 ML IV ×2 (05:19→12:37)
[2023-01-05 07:23] LABS: Glucose, Whole Blood 216 mg/dL (60-115)
[2023-01-05 07:45] VITALS: BP 156/98; PULSE 89; RESP 18; TEMP 36.8; O2SAT 92
[2023-01-05] MEDS: 0.9 % Sodium Chloride Flush 3 ML SYRINGE IVFLUSH ×2 (07:55→15:11)
[2023-01-05] MEDS: dilTIAZem HCL 30 MG TABLET PO ×3 (07:55→17:17)
[2023-01-05] MEDS: Apixaban 5 MG TABLET PO (07:55)
[2023-01-05] MEDS: Insulin Lispro 100 UNIT/ML 3 ML VIAL SUBCUT ×3 (07:55→17:16)
[2023-01-05] MEDS: Fenofibrate 54 MG TABLET PO (07:55)
[2023-01-05] MEDS: Sertraline HCL 50 MG TABLET PO (07:55)
[2023-01-05] MEDS: Albuterol/Iprat 2.5/0.5MG 3 ML AMPUL.NEB INHALE ×2 (11:20→15:19)
[2023-01-05 12:00] VITALS: BP 150/98; PULSE 88; RESP 20; TEMP 36.4; O2SAT 92
[2023-01-05 12:23] LABS: Glucose, Whole Blood 184 mg/dL (60-115)
--- NOTE | 2023-01-05 13:17 | PM.DS ---
DS: Providers Provider Date of Service: 01/05/23 Date of admission: 12/31/22 16:16 Date of discharge: 01/05/23 Primary care physician: Unknown Physician Consults: 12/31/22 16:31 Addiction Medicine Routine Consulting Provider: Addiction Covering Reason for consultation: drug use Has provider been notified: No Consult to Cardiology Routine Consulting Provider: [facility] [place] [facility] Reason for consultation: new onset afib, drug overose. Has provider been notified: No 01/01/23 08:18 Consult to Pulmonology Routine Consulting Provider: [facility] [place] [facility] Reason for consultation: acute hypoxememic respiratory failure Has provider been notified: No 01/02/23 18:46 Consult to Neurology Routine Consulting Provider: [facility] Reason for consultation: new seizures Has provider been notified: No 01/05/23 10:16 Consult to Psychiatry Stat Consulting Provider: Psych Covering Reason for consultation: audio hallucinations Has provider been notified: Yes DS: Diagnosis Discharge Diagnosis (1) Psychiatric pseudoseizure: Status: Acute (2) PAF (paroxysmal atrial fibrillation): Status: Acute (3) Diabetes: Status: Acute DS: Summary Hospital Course Hospital Course: Patient seems generalized weak and somewhat confused unable to provide much history, information was taken from his . 52-year-old male IV drug use in the past-as per 7year? was clean, history of hypercholesteremia, diabetes, CAD-he came from [place] for a wedding in his family, as per today she went for hair dressing and she called him to pick her up.? He said to his is in bathroom and he is coming soon.? After some time waiting the called back but nobody picked up so she talked to her kids -they told her that they are waiting for their father in the car outside their apartment.? Subsequently patient was found outside the apartment by bystanders unresponsive-received CPR unclear duration, also received 8 mg of Narcan-subsequently patient woke up got agitated and confused, as per the family there is the needle kirk in the left antecubital area which was not there before.? In the hospital patient was found to have AFib with RVR. Patient with currently seems weak and confused unable to give history, easily awake.? Follows simple commands EKG, troponin, chest x-ray and CT head seems negative( has some scalp up mild hematoma question). In ED patient received diltiazem drip, also Eliquis ordered in ed. also received IV fluid Urine drug screen:? Positive for fentanyl, opioids, marijuana Patient could able to say only soreness in the muscle area of the chest both sides, otherwise resting comfortably, but slightly sleepy. We have added additional dose of Narcan. Hospital Course Admitted to telemetry were monitored failed to show any dysrhythmia. During his hospitalization he exhibited several psychiatric pseudo seizures for which he was given Ativan. Seen by Neurology and workup for seizures; EEG normal MRI unremarkable. Case discussed with psychiatry as feels patient has declined. Given new to this area and no PCP the recommendation was to increase sertraline to 75 mg and follow up with new PCP and obtain a behavioral health referral. Both and patient are understanding and acceptable of this plan Time Spent with Patient Time attestation: Total time managing care of this patient today ____ minutes. Discharge coordination time: Greater than 30 minutes Quality: Safe Use of Opioids Does Pt have an Active Cancer Diagnosis on the Problem List?: No Quality: Stroke Does the patient have a stroke diagnosis?: No Physical Exam Vital Signs: Vital Signs: Last Vital Signs Temp 97.6 F 01/05/23 12:00 Pulse 88 01/05/23 12:00 Resp 20 01/05/23 12:00 BP 150/98 H 01/05/23 12:00 Pulse Ox 92 01/05/23 12:00 O2 Del Method Room Air 01/05/23 12:00 O2 Flow Rate 2 01/04/23 00:00 Oxygen Flow Rate 4 01/03/23 13:51 BMI result Body Mass Index 30.2 Const: Other: Awake alert no acute distress Resp: Other: Clear to auscultation bilaterally no rales rhonchi wheezes Cardio: Other: No S4; positive S1-S2; no S3 murmurs rubs or gallops GI: Other: Soft nontender nondistended normoactive bowel sounds Neuro: Other: Cranial nerves 2-12 grossly intact as tested. Motor 5/5 all extremities sensation intact cognition appropriate DS: Data Data Completed and Pending Labs on day of discharge: Laboratory Results - last 24 hr 01/04/23 01/04/23 01/05/23 16:12 20:32 07:20 POC Glucose 398 H* 320 H 216 H 01/05/23 12:02 POC Glucose 184 H Discharge Plan Discharge Anticipated Discharge Date/Time: 01/05/23 13:09 Patient Disposition: Home, Self-Care Discharge Diagnosis: Accidental overdose Referrals: Physician,Unknown J [Primary Care Provider] - 1 Week Discharge Medications: New Eliquis 5 mg Tablet 5 mg PO BID Qty: 60 0RF diltiazem HCl 30 mg Tablet 30 mg PO QID Qty: 120 0RF Protocol: Hold for SBP/HR < HOLD for SBP < : 90 HOLD for HR < : 60 sertraline 50 mg Tablet 75 mg PO DAILY Qty: 30 3RF Continued propranolol 10 mg tablet 10 mg PO BID PRN (Reason: chest pain / anxiety) metformin 1,000 mg tablet 1,000 mg PO BID naproxen sodium [Aleve] 220 mg Tablet 440 mg PO BID PRN (Reason: Pain) rosuvastatin 20 mg tablet 20 mg PO BEDTIME fenofibrate 54 mg tablet 54 mg PO DAILY testosterone cypionate 200 mg/mL Kit 100 mg IM QWEEK Rx Instructions: Inject into shoulder, thigh, or buttocks Discontinued sertraline 50 mg tablet 50 mg PO DAILY Discharge Orders: Discharge Order (Routine); Ordered 01/05/23 Ordered By: Douglas Esqueda Diet: Advance to usual diet Activity on Discharge: As tolerated Stand Alone Forms: Patient Portal Discharge page Care Plan Goals: Continue sertraline 25 mg 3 tabs daily until seen by provider Health Concerns: Resume all your previous hospital medicines Plan of Treatment: Follow-up with new PCP as scheduled. Will receive a phone call for appointment Assessment: See discharge summary
--- NOTE | 2023-01-05 14:23 | MHC.CM.PN ---
PT MEDICALLY CLEARED FOR D/C, PER GERARDO THEY WILL BE STAYING W/FAMILY IN [place] UNTIL THEY CAN FIND HOUSING, MH JEAN CARLOS HAS BEEN FAXED AND ANTIC WILL NOT BE ACTIVE BY WEDNESDAY 01/10 PT PREVIOUSLY HAD WELLSENSE AND JEAN CARLOS IS TAKING LONGER TO PROCESS, PT'S GERARDO'S MH IS NOW ACTIVE. PT AND GERARDO HAVE BEEN PROVIDED W/THE FOLLOWIN) [employer] CONTACT INFO AND DIRECTIONS TO CALL. 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 5) DEPT OF TRANSITIONAL ASSISTANCE ADDRESS AND CONTACT NUMBER 6) LIST OF FOOD PANTRIES, SHELTERS AND RESOURCES, ETC PT WILL D/C AT 4PM TODAY, FAMILY FOR TRANSPORT
--- NOTE | 2023-01-05 14:50 | MHC.RECOVRN ---
Referral sent for control and recovery special tactics as requested by JEFFERSON.
[2023-01-05] MEDS: methylPREDNISolone Sod Succ 40 MG/ML VIAL IVPUSH (15:07)
[2023-01-05 15:18] VITALS: BP 132/88; PULSE 95; RESP 18; TEMP 37.1; O2SAT 92
[2023-01-05 16:19] LABS: Glucose, Whole Blood 197 mg/dL (60-115)
== END 2023-01-05 17:18 | disposition home or self-care (01) | DRG 812 ==
LOC: HO.ED 15:48 → HO.EDOVER 16:20 → HO.IMC 18:39
PROVIDERS: Internal Medicine; Nurse Practitioner Acute Care; Student in an Organized Health Care Education/Training Program; Admitting Provider Internal Medicine; Emergency Provider Internal Medicine; Visit Provider Hospitalist
DX: T50.901A Poisoning by unspecified drugs, medicaments and biological substances, accidental (unintentional), initial encounter (principal); J96.01 Acute respiratory failure with hypoxia; G92.8 Other toxic encephalopathy; R56.9 Unspecified convulsions; F19.10 Other psychoactive substance abuse, uncomplicated; F41.9 Anxiety disorder, unspecified; E11.9 Type 2 diabetes mellitus without complications; I25.10 Atherosclerotic heart disease of native coronary artery without angina pectoris; E78.00 Pure hypercholesterolemia, unspecified; Z87.891 Personal history of nicotine dependence; Z79.84 Long term (current) use of oral hypoglycemic drugs; Z79.899 Other long term (current) drug therapy
CPT/HCPCS: 36415; 36600; 70450; 70551; 71045; 71275; 80053; 80307; 81001; 81003; 82248; 82803; 82947; 83735; 84439; 84443; 84481; 84484; 85025; 85027; 85610; 85730; 93005; 93306; 94640; 95816; 99285; J0295; J1650; J1885; J2060; J2405; J2920; Q9957; Q9967

== ENCOUNTER 2023-01-06 12:03 | Inpatient (IN) | payer MEDICAID, SELFPAY ==
--- NOTE | ~2023-01-06 | XR_ITS ---
EXAMINATION: XR CHEST CLINICAL INFORMATION: Chest pain. COMPARISON: 01/01/2023 chest radiograph. TECHNIQUE: Frontal view of the chest was obtained. FINDINGS: No significant abnormality is noted involving the heart, lungs, mediastinum, bony thorax or soft tissues. XR/XR chest 1V IMPRESSION: No acute cardiopulmonary process.
--- NOTE | ~2023-01-06 | XR_ITS ---
EXAMINATION: XR FEMUR, LEFT CLINICAL INFORMATION: Post fall. COMPARISON: None available. TECHNIQUE: AP and lateral views of the left femur were obtained. FINDINGS: No acute fractures or malalignment. No significant soft tissue abnormality. No unexpected radiopaque foreign bodies. XR/XR femur LT 1V IMPRESSION: No acute fractures or malalignment.
--- NOTE | 2023-01-06 07:44 | ECG_ITS ---
Test Reason : CHEST PAIN Blood Pressure : / mmHG Vent. Rate : 096 BPM Atrial Rate : 096 BPM P-R Int : 136 ms QRS Dur : 088 ms QT Int : 352 ms P-R-T Axes : 053 073 009 degrees QTc Int : 444 ms Normal sinus rhythm Normal ECG When compared with ECG of 03-JAN-2023 20:16, No significant change was found Referred By: Yessi Kenny Electronically Signed By:AR TIDWELL MD
[2023-01-06 12:31] VITALS: BP 146/98; BP 152/110; PULSE 91; PULSE 92; RESP 18; TEMP 37; O2SAT 94; O2SAT 95; BMI 28.1
[2023-01-06 12:58] LABS: Hematocrit 47.9 % (42.0-52.0); Hemoglobin 16.8 g/dl (14.0-18.0); Mean Corpuscular HGB Conc 35.1 g/dl (31.0-36.0); Mean Corpuscular Hemoglobin 30.4 pg (27.0-33.0); Mean Corpuscular Volume 86.6 fL (80.0-98.0); Mean Platelet Volume 10.1 fL (9.4-12.4); Platelet Count 242 X10*3/uL (160-400); Red Blood Count 5.53 X10*6/uL (4.60-5.80); Red Cell Distribution Width 11.9 % (11.0-16.0)
[2023-01-06 13:02] LABS: Appearance Urine Clear; Color Urine Yellow; Glucose Urine UA >=1000 mg/dL (Negative); Leukocyte Esterase Urine Negative (Negative); Nitrite Urine Negative (Negative); Specific Gravity - Urine >= 1.030 (1.005-1.025); UMIC TRIGGER UACC YES; Urine Blood Negative (Negative); Urine Ketones Negative (Negative); Urine Protein Negative (Neg-Trace)
[2023-01-06 13:06] LABS: Ethanol < 10 mg/dL
[2023-01-06 13:07] LABS: Alanine Aminotransferase 43 U/L (0-40); Albumin Level 4.4 g/dL (3.5-5.0); Alkaline Phosphatase 64 U/L (39-117); Anion Gap 18 (12-20); Aspartate Amino Transferase 27 U/L (5-37); Bacteria Urine None Seen (None Seen); Bilirubin Total 0.6 mg/dL (0.0-1.0); Blood Urea Nitrogen 27 mg/dL (9-16); Calcium 9.9 mg/dL (8.4-10.2); Carbon Dioxide 22 mmol/L (22-29); Chloride 103 mmol/L (96-108); Creatinine Clr Calc Pharmacy 84.4; Estimated Glomerular Filt Rate > 60; Glucose Random 199 mg/dL (60-115); Hyaline Casts Urine 0-2 /LPF (0-2); Magnesium 2.2 mg/dL (1.6-2.6); RBC Urine 0-2 /HPF (0-2); Sodium 139 mmol/L (135-145); Squamous Epithelial Cell Urine 0-2 /HPF (0-2); Total Protein 7.5 g/dL (6.5-8.0); WBC Urine 0-5 /HPF (0-5)
[2023-01-06 13:10] LABS: IDNOW Serial# BCCEAD1C
[2023-01-06 13:11] LABS: Amphetamine Screen Urine Not Detected (Not Detect); Barbiturates, Urine POSITIVE (Not Detect); Benzodiazepines Screen Urine Not Detected (Not Detect); COVID-19 Test Negative (Negative); Cannabinoid Screen Urine Not Detected (Not Detect); Cocaine Screen Urine Not Detected (Not Detect); Fentanyl, urine POSITIVE (Not Detect); Opiate Screen Urine Not Detected (Not Detect); Phencyclidine Screen Urine Not Detected (Not Detect)
[2023-01-06 13:17] LABS: Band Neutrophils Percent 1 % (3-5); Eosinophils Absolute Manual 0.2 X10*3/uL (0.0-0.4); Eosinophils Percent Manual 2 % (0-4); Lymphocytes Absolute Manual 3.3 X10*3/uL (1.2-4.9); Lymphocytes Percent Manual 30 % (20-40); Metamyelocytes Absolute 0.2 X10*3/uL; Metamyelocytes Percent 2 %; Monocytes Absolute Manual 0.4 X10*3/uL (0.1-1.2); Monocytes Percent Manual 4 % (2-11); Neutrophils Absolute Manual 6.8 X10*3/uL (2.0-8.3); Neutrophils Percent Manual 61 % (45-73)
[2023-01-06 13:18] LABS: Platelet Estimate NORMAL (NORMAL); Platelet Morphology Comment NORMAL; RBC Morphology NORMAL
[2023-01-06 13:27] LABS: Acetaminophen LAB < 17 mcg/mL (<30); Salicylate < 5.0 mg/dL (15-30)
--- NOTE | 2023-01-06 14:03 | ED_ITS ---
HPI - General Adult General Chief complaint: Psychiatric Symptoms Stated complaint: CRISIS SI Time Seen by Provider: 01/06/23 12:12 Source: patient and EMS Mode of arrival: EMS Limitations: no limitations History of Present Illness HPI narrative: 52-year-old male history of AFib on Eliquis, hypertension, diabetes, opiate abuse status post recent overdose which required hospital admission presenting to the emergency department for evaluation of suicidal ideation with vague plan to overdose on pills, patient reports he is also having anterior chest wall pain, nonradiating, describes as an aching pain worse with movement better at rest. Patient tells me he was admitted into the hospital few days ago due to an opiate overdose which required CPR multiple times, patient tells me that he is feeling suicidal and he prior to this overdose he had been clean for 10 years. He reports increasing life stressors. He denies visual, auditory and tactile hallucinations. Denies alcohol, tobacco and recent drug use after admission. No medical complaints. No homicidal ideation. Related Data Home Medications Medication Instructions Recorded Confirmed fenofibrate 54 mg tablet 54 mg PO DAILY 12/31/22 01/06/23 metformin 1,000 mg tablet 1,000 mg PO BID 12/31/22 01/06/23 naproxen sodium 220 mg tablet 440 mg PO BID PRN Pain 12/31/22 01/06/23 (Aleve) propranolol 10 mg tablet 10 mg PO BID PRN chest pain / 12/31/22 01/06/23 anxiety rosuvastatin 20 mg tablet 20 mg PO BEDTIME 12/31/22 01/06/23 testosterone cypionate 200 mg/mL 100 mg IM QWEEK 12/31/22 01/06/23 intramuscular kit Previous Rx's Medication Instructions Recorded apixaban 5 mg tablet (Eliquis) 5 mg PO BID #60 tabs 01/05/23 diltiazem HCl 30 mg tablet 30 mg PO QID #120 tabs 01/05/23 sertraline 50 mg tablet 75 mg PO DAILY #30 tabs 01/05/23 Allergies Allergy/AdvReac Type Severity Reaction Status Date / Time No Known Allergies Allergy Verified 12/31/22 13:38 [No Known Allergies*] Review of Systems Review of Systems: Constitutional : No Weight loss, No Fever, No Chills, No Fatigue, No Malaise ENT/Mouth : No sore throat, No Rhinorrhea Eyes: No Eye Pain, No Swelling, No Redness Cardiovascular : + Chest Pain, No SOB, No Dyspnea on Exertion, No Orthopnea, No Edema, No Palpitations Respiratory : No Cough, No Sputum, No Wheezing Gastrointestinal : No Nausea, No Vomiting, No Diarrhea, No Constipation, No abdominal Pain, No Hematochezia, No Melena Genitourinary : No Dysuria, No Urinary Frequency, No Hematuria, Musculoskeletal : No joint pain, No Myalgias, No Joint Swelling Skin : No Skin Lesions, No rash Neuro : No Weakness, No Numbness, No Dizziness, No Headache Psych : + Anxiety/Panic, + Depression, + SI, No HI All other systems reviewed and are negative Yes all other systems are reviewed and are negative [facility] Past Medical History Attestation statement: The following information was validated with the patient. Source: old records reviewed and nursing notes reviewed Social History Social History (Updated 12/31/22 @ 16:46 by Remy Judge MD) Household Members: Spouse and Children Unable to assess alcohol history related to: Refusing to respond Alcohol intake: former Patient Tobacco Use Status: Former Tobacco user Smoked in Last 30 Days: No Use of substances other than those prescribed or required for medical reasons: No Substance Use Type: Heroin Substance Use Frequency Other:: Patient used to take herione but stopped taking regularly 10 years ago Advance Directives: No Advance Directives Information Provided: No Healthcare Proxy: No Guardian: No service: No Current occupational status: employed Physical Exam ED Vital Signs: Vital Signs - 24 hr 01/07/23 22:19 01/08/23 06:43 01/08/23 09:00 Temperature 97.8 F 97.5 F 97.4 F Pulse Rate 93 92 106 H Respiratory Rate 16 17 18 Blood Pressure 130/78 123/84 125/82 Pulse Oximetry 95 98 96 Oxygen Delivery Method Room Air Room Air Room Air BMI result Body Mass Index 28.1 vss Appearance: Alert.? Oriented X3.? No acute distress.? Head: Normocephalic, atraumatic, no step-offs or deformities Eyes: Pupils equal, round and reactive to light.? CVS: Normal heart rate and rhythm.? Pulses normal.? Anterior chest wall pain with palpation. Respiratory: No respiratory distress.? Breath sounds normal.? Abdomen: Soft and nontender.? Skin: Skin warm and dry.? Normal skin color.? Normal skin turgor.? Extremities: No lower extremity edema.? No calf ttp. 5/5 strength to bilateral upper and lower extremities Neuro: Oriented X 3.? No motor deficit.? No sensory deficit. CN 2-12 intact Course Course Course Narrative: 01/08/2023 1344: Will be admitted to our psychiatric inpatient unit. Reevaluation(s) Reevaluation #1: CBC with slight leukocytosis likely reactive, I do not suspect infection at this time. Chemistry with slightly elevated BUN likely secondary to poor p.o. intake/dehydration. No other electrolyte abnormalities requiring intervention. I will encourage p.o. hydration. UA clean without infection. Urine toxicology positive for fentanyl, barbiturates. Negative salicylates, acetaminophen and ethanol. EKG nonischemic, troponin and chest x-ray pending. Time: 14:08 Reevaluation #2: Troponin negative, EKG nonischemic unlikely ACS. Chest x-ray with no acute cardiopulmonary process. Chest wall pain likely secondary to chest compressions. I do not suspect ACS, anticoagulated unlikely PE. Patient well appearing, vital signs stable. At this time patient to be placed into observation to allow more time to be evaluated by the behavioral health team. Time: 15:04 Reevaluation #3: Patient will be a voluntary inpatient bed search. Additional Reevaluation(s): Patient is here for depression with a voluntary bed search. There are no current active issues needing emergent evaluation or management. Patient is currently pending care team disposition. 0704: You physician observation, voluntary inpatient bed search, no acute events overnight. 930 am: I assumed care at 7 AM. Patient with diarrhea, doubt infectious etiology, possible withdrawal. Will order imodium Medications Administered Generic Name Dose Route Start Last Admin Trade Name Freq PRN Reason Stop Dose Admin Apixaban 5 mg 01/06/23 21:00 01/08/23 08:57 Apixaban 5 Mg Tablet PO 5 mg BID KRISTAL Administration Aripiprazole 5 mg 01/07/23 12:35 01/08/23 08:57 Aripiprazole 5 Mg Tablet PO 5 mg DAILY KRISTAL Administration Atorvastatin Calcium 80 mg 01/06/23 21:00 01/07/23 21:32 Atorvastatin Calcium 80 Mg Tablet PO 80 mg BEDTIME KRISTAL Administration Diltiazem HCl 30 mg 01/06/23 21:00 01/08/23 08:57 Diltiazem Hcl 30 Mg Tablet PO 30 mg QID KRISTAL Administration Protocol Fenofibrate 54 mg 01/07/23 09:00 01/08/23 10:31 Fenofibrate 54 Mg Tablet PO 54 mg DAILY KRISTAL Administration Metformin HCl 1,000 mg 01/06/23 21:00 01/08/23 08:57 Metformin Hcl 1,000 Mg Tablet PO 1,000 mg BID KRISTAL Administration Propranolol HCl 10 mg 01/06/23 19:23 01/07/23 11:07 Propranolol Hcl 10 Mg Tablet PO 10 mg BID PRN Administration chest pain / anxiety Protocol Sertraline HCl 100 mg 01/08/23 09:00 01/08/23 08:57 Sertraline Hcl 100 Mg Tablet PO 100 mg DAILY KRISTAL Administration Discontinued Medications Generic Name Dose Route Start Last Admin Trade Name Freq PRN Reason Stop Dose Admin Lidocaine 1 patch 01/06/23 14:09 01/06/23 14:34 Lidocaine 4 % Patch Adh..Patch TRANSDERMA 01/06/23 14:10 1 patch ONCE ONE Administration Protocol Loperamide HCl 2 mg 01/08/23 09:30 01/08/23 10:31 Loperamide Hcl 2 Mg Capsule PO 01/08/23 09:31 2 mg ONCE ONE Administration Lorazepam 1 mg 01/06/23 15:52 01/06/23 15:59 Lorazepam 1 Mg Tablet PO 01/06/23 15:53 1 mg ONCE ONE Administration Morphine Sulfate 15 mg 01/06/23 14:08 01/06/23 14:35 Morphine Sulfate Immed Release 15 Mg Tablet PO 01/06/23 14:09 15 mg ONCE ONE Administration Sertraline HCl 75 mg 01/07/23 09:00 01/07/23 08:07 Sertraline Hcl 25 Mg Tablet PO 75 mg DAILY KRISTAL Administration Medical Decision Making Medical Decision Making MDM Narrative: 52-year-old male presents with fatigue, malaise, suicidal ideation with plan to overdose on pills anterior chest wall pain with palpation the past few days. Recent overdose which required hospital admission CPR. Physical exam significant for Anterior chest wall pain with palpation. Chest pain likely musculoskeletal in nature secondary to CPR. I do not suspect ACS, PE ( on anticoags), myocarditis or endocarditis. Suicidal ideation likely secondary to depression, will rule out metabolic derangements, UTI. Although unlikely. Plan medical clearance evaluation by behavioral health team. Differential Diagnosis Differential Diagnoses: The differential diagnosis associated with the presentation includes Chest pain likely musculoskeletal in nature secondary to CPR. I do not suspect ACS, PE, myocarditis or endocarditis. Suicidal ideation likely secondary to depression, will rule out metabolic derangements, UTI. Although unlikely. Admission/Observation Consideration of admission/observation: Escalation of care including admission/observation considered Lab Data MDM Lab Attestation statement: I reviewed the patient's lab results. 01/06/23 12:43 01/06/23 12:43 Labs: Lab Results 01/06/23 01/06/23 01/06/23 Range/Units 12:43 12:43 12:43 WBC 11.0 H (4.8-10.8) X10*3/uL RBC 5.53 D (4.60-5.80) X10*6/uL Hgb 16.8 D (14.0-18.0) g/dl Hct 47.9 D (42.0-52.0) % MCV 86.6 (80.0-98.0) fL MCH 30.4 (27.0-33.0) pg MCHC 35.1 (31.0-36.0) g/dl RDW 11.9 (11.0-16.0) % Plt Count 242 D (160-400) X10*3/uL MPV 10.1 (9.4-12.4) fL Immature Gran % (Auto) Cancelled Neut % (Auto) Cancelled Lymph % (Auto) Cancelled [place] % (Auto) Cancelled Eos % (Auto) Cancelled Baso % (Auto) Cancelled Lymph # (Auto) Cancelled [place] # (Auto) Cancelled Eos # (Auto) Cancelled Baso # (Auto) Cancelled Abs Immat Gran (auto) Cancelled Absolute Neuts (auto) Cancelled Absolute Nucleated RBC 0.000 (0.0-0.012) X10*3/uL Nucleated RBC % (auto) 0.0 (0.0-0.2) /100WBC Neutrophils % (Manual) 61 (45-73) % Band Neutrophils % 1 L (3-5) % Lymphocytes % (Manual) 30 (20-40) % Monocytes % (Manual) 4 (2-11) % Eosinophils % (Manual) 2 (0-4) % Metamyelocytes % 2 % Abs Neuts (Manual) 6.8 (2.0-8.3) X10*3/uL Lymphocytes # (Manual) 3.3 (1.2-4.9) X10*3/uL Monocytes # (Manual) 0.4 (0.1-1.2) X10*3/uL Eosinophils # (Manual) 0.2 (0.0-0.4) X10*3/uL Metamyelocytes # 0.2 X10*3/uL Platelet Estimate NORMAL (NORMAL) Plt Morphology Comment NORMAL RBC Morphology NORMAL Sodium 139 (135-145) mmol/L Potassium 4.0 (3.3-5.1) mmol/L Chloride 103 (96-108) mmol/L Carbon Dioxide 22 (22-29) mmol/L Anion Gap 18 (12-20) BUN 27 H (9-16) mg/dL Creatinine 1.10 (0.5-1.4) mg/dL Estim Creat Clear Calc 84.4 Estimated GFR > 60 Random Glucose 199 H (60-115) mg/dL Calcium 9.9 (8.4-10.2) mg/dL Magnesium 2.2 (1.6-2.6) mg/dL Total Bilirubin 0.6 (0.0-1.0) mg/dL AST 27 (5-37) U/L ALT 43 H (0-40) U/L Alkaline Phosphatase 64 (39-117) U/L Troponin I High Sens (<3.5-35.0) ng/L B-Natriuretic Peptide (<100) pg/mL Total Protein 7.5 (6.5-8.0) g/dL Albumin 4.4 (3.5-5.0) g/dL Urine Color Urine Appearance Urine pH (5.0-9.0) Ur Specific [place] (1.005-1.025) Urine Protein (Neg-Trace) mg/dL Urine Glucose (UA) (Negative) mg/dL Urine Ketones (Negative) mg/dL Urine Blood (Negative) Urine Nitrite (Negative) Ur Leukocyte Esterase (Negative) Urine RBC (0-2) /HPF Urine WBC (0-5) /HPF Ur Squamous Epith Cells (0-2) /HPF Urine Bacteria (None Seen) Hyaline Casts (0-2) /LPF Salicylates < 5.0 L (15-30) mg/dL Urine Opiates Screen (Not Detect) Urine Fentanyl Screen (Not Detect) Acetaminophen < 17 (<30) mcg/mL Ur Barbiturates Screen (Not Detect) Ur Phencyclidine Scrn (Not Detect) Ur Amphetamines Screen (Not Detect) U Benzodiazepines Scrn (Not Detect) Urine Cocaine Screen (Not Detect) U Marijuana (THC) Screen (Not Detect) Ethyl Alcohol mg/dL COVID-19 (JALEN) Negative (Negative) COVID-19 Clin Com See Note 01/06/23 01/06/23 01/06/23 Range/Units 12:43 12:43 12:43 WBC (4.8-10.8) X10*3/uL RBC (4.60-5.80) X10*6/uL Hgb (14.0-18.0) g/dl Hct (42.0-52.0) % MCV (80.0-98.0) fL MCH (27.0-33.0) pg MCHC (31.0-36.0) g/dl RDW (11.0-16.0) % Plt Count (160-400) X10*3/uL MPV (9.4-12.4) fL Immature Gran % (Auto) Neut % (Auto) Lymph % (Auto) [place] % (Auto) Eos % (Auto) Baso % (Auto) Lymph # (Auto) [place] # (Auto) Eos # (Auto) Baso # (Auto) Abs Immat Gran (auto) Absolute Neuts (auto) Absolute Nucleated RBC (0.0-0.012) X10*3/uL Nucleated RBC % (auto) (0.0-0.2) /100WBC Neutrophils % (Manual) (45-73) % Band Neutrophils % (3-5) % Lymphocytes % (Manual) (20-40) % Monocytes % (Manual) (2-11) % Eosinophils % (Manual) (0-4) % Metamyelocytes % % Abs Neuts (Manual) (2.0-8.3) X10*3/uL Lymphocytes # (Manual) (1.2-4.9) X10*3/uL Monocytes # (Manual) (0.1-1.2) X10*3/uL Eosinophils # (Manual) (0.0-0.4) X10*3/uL Metamyelocytes # X10*3/uL Platelet Estimate (NORMAL) Plt Morphology Comment RBC Morphology Sodium (135-145) mmol/L Potassium (3.3-5.1) mmol/L Chloride (96-108) mmol/L Carbon Dioxide (22-29) mmol/L Anion Gap (12-20) BUN (9-16) mg/dL Creatinine (0.5-1.4) mg/dL Estim Creat Clear Calc Estimated GFR Random Glucose (60-115) mg/dL Calcium (8.4-10.2) mg/dL Magnesium (1.6-2.6) mg/dL Total Bilirubin (0.0-1.0) mg/dL AST (5-37) U/L ALT (0-40) U/L Alkaline Phosphatase (39-117) U/L Troponin I High Sens (<3.5-35.0) ng/L B-Natriuretic Peptide (<100) pg/mL Total Protein (6.5-8.0) g/dL Albumin (3.5-5.0) g/dL Urine Color Yellow Urine Appearance Clear Urine pH 6.0 (5.0-9.0) Ur Specific [place] >= 1.030 H (1.005-1.025) Urine Protein Negative (Neg-Trace) mg/dL Urine Glucose (UA) >=1000 H (Negative) mg/dL Urine Ketones Negative (Negative) mg/dL Urine Blood Negative (Negative) Urine Nitrite Negative (Negative) Ur Leukocyte Esterase Negative (Negative) Urine RBC 0-2 (0-2) /HPF Urine WBC 0-5 (0-5) /HPF Ur Squamous Epith Cells 0-2 (0-2) /HPF Urine Bacteria None Seen (None Seen) Hyaline Casts 0-2 (0-2) /LPF Salicylates (15-30) mg/dL Urine Opiates Screen Not Detected (Not Detect) Urine Fentanyl Screen POSITIVE H (Not Detect) Acetaminophen (<30) mcg/mL Ur Barbiturates Screen POSITIVE H (Not Detect) Ur Phencyclidine Scrn Not Detected (Not Detect) Ur Amphetamines Screen Not Detected (Not Detect) U Benzodiazepines Scrn Not Detected (Not Detect) Urine Cocaine Screen Not Detected (Not Detect) U Marijuana (THC) Screen Not Detected (Not Detect) Ethyl Alcohol < 10 mg/dL COVID-19 (JALEN) (Negative) COVID-19 Clin Com 01/06/23 01/06/23 01/06/23 Range/Units 12:43 14:31 20:01 WBC (4.8-10.8) X10*3/uL RBC (4.60-5.80) X10*6/uL Hgb (14.0-18.0) g/dl Hct (42.0-52.0) % MCV (80.0-98.0) fL MCH (27.0-33.0) pg MCHC (31.0-36.0) g/dl RDW (11.0-16.0) % Plt Count (160-400) X10*3/uL MPV (9.4-12.4) fL Immature Gran % (Auto) Neut % (Auto) Lymph % (Auto) [place] % (Auto) Eos % (Auto) Baso % (Auto) Lymph # (Auto) [place] # (Auto) Eos # (Auto) Baso # (Auto) Abs Immat Gran (auto) Absolute Neuts (auto) Absolute Nucleated RBC (0.0-0.012) X10*3/uL Nucleated RBC % (auto) (0.0-0.2) /100WBC Neutrophils % (Manual) (45-73) % Band Neutrophils % (3-5) % Lymphocytes % (Manual) (20-40) % Monocytes % (Manual) (2-11) % Eosinophils % (Manual) (0-4) % Metamyelocytes % % Abs Neuts (Manual) (2.0-8.3) X10*3/uL Lymphocytes # (Manual) (1.2-4.9) X10*3/uL Monocytes # (Manual) (0.1-1.2) X10*3/uL Eosinophils # (Manual) (0.0-0.4) X10*3/uL Metamyelocytes # X10*3/uL Platelet Estimate (NORMAL) Plt Morphology Comment RBC Morphology Sodium (135-145) mmol/L Potassium (3.3-5.1) mmol/L Chloride (96-108) mmol/L Carbon Dioxide (22-29) mmol/L Anion Gap (12-20) BUN (9-16) mg/dL Creatinine (0.5-1.4) mg/dL Estim Creat Clear Calc Estimated GFR Random Glucose (60-115) mg/dL Calcium (8.4-10.2) mg/dL Magnesium (1.6-2.6) mg/dL Total Bilirubin (0.0-1.0) mg/dL AST (5-37) U/L ALT (0-40) U/L Alkaline Phosphatase (39-117) U/L Troponin I High Sens < 2.7 D < 2.7 (<3.5-35.0) ng/L B-Natriuretic Peptide < 10 (<100) pg/mL Total Protein (6.5-8.0) g/dL Albumin (3.5-5.0) g/dL Urine Color Urine Appearance Urine pH (5.0-9.0) Ur Specific [place] (1.005-1.025) Urine Protein (Neg-Trace) mg/dL Urine Glucose (UA) (Negative) mg/dL Urine Ketones (Negative) mg/dL Urine Blood (Negative) Urine Nitrite (Negative) Ur Leukocyte Esterase (Negative) Urine RBC (0-2) /HPF Urine WBC (0-5) /HPF Ur Squamous Epith Cells (0-2) /HPF Urine Bacteria (None Seen) Hyaline Casts (0-2) /LPF Salicylates (15-30) mg/dL Urine Opiates Screen (Not Detect) Urine Fentanyl Screen (Not Detect) Acetaminophen (<30) mcg/mL Ur Barbiturates Screen (Not Detect) Ur Phencyclidine Scrn (Not Detect) Ur Amphetamines Screen (Not Detect) U Benzodiazepines Scrn (Not Detect) Urine Cocaine Screen (Not Detect) U Marijuana (THC) Screen (Not Detect) Ethyl Alcohol mg/dL COVID-19 (JALEN) (Negative) COVID-19 Clin Com Independent Interpretation I performed an independent interpretation of an: Plain X-Ray Radiology Impression Discussion of test interpretation with radiology: I have reviewed the radiologist's reading. Core Measures AMI core measures followed: Yes Measure exclusions: not indicated Critical Care Time Critical Care Time Critical Care Time: No Discharge Plan Discharge Clinical Impression: Depression, Suicidal ideation, Chest wall pain Patient Disposition: Still a Patient Prescriptions: No Action propranolol 10 mg tablet 10 mg PO BID PRN (Reason: chest pain / anxiety) metformin 1,000 mg tablet 1,000 mg PO BID naproxen sodium [Aleve] 220 mg Tablet 440 mg PO BID PRN (Reason: Pain) rosuvastatin 20 mg tablet 20 mg PO BEDTIME fenofibrate 54 mg tablet 54 mg PO DAILY testosterone cypionate 200 mg/mL Kit 100 mg IM QWEEK Rx Instructions: Inject into shoulder, thigh, or buttocks Eliquis 5 mg Tablet 5 mg PO BID Qty: 60 0RF diltiazem HCl 30 mg Tablet 30 mg PO QID Qty: 120 0RF Protocol: Hold for SBP/HR < HOLD for SBP < : 90 HOLD for HR < : 60 sertraline 50 mg Tablet 75 mg PO DAILY Qty: 30 3RF Interventions: [place]-Suicide Risk Severity Scale Last Done: 01/08/23 07:17
[2023-01-06] MEDS: Lidocaine 4 % Patch ADH..PATCH 1 PATCH TRANSDERMA (14:34)
[2023-01-06] MEDS: Morphine Sulfate Immed Release 15 MG TABLET PO (14:35)
[2023-01-06 14:57] LABS: Troponin-I High Sensitivity < 2.7 ng/L (<3.5-35.0)
[2023-01-06 15:34] LABS: B Type Natriuretic Peptide < 10 pg/mL (<100)
[2023-01-06] MEDS: LORazepam 1 MG TABLET PO (15:59)
[2023-01-06 18:47] VITALS: BP 105/72; PULSE 93; RESP 16; TEMP 36.5; O2SAT 94
--- NOTE | 2023-01-06 18:53 | PHA.MEDREC ---
Pharmacy Consult ? Medication Reconciliation Pharmacy has completed the medication reconciliation. patient was discharged from here yesterday. Used discharge papers. Med rec was also done on 12/31.
--- NOTE | 2023-01-06 19:24 | ECG_ITS ---
Test Reason : CP Blood Pressure : / mmHG Vent. Rate : 098 BPM Atrial Rate : 098 BPM P-R Int : 136 ms QRS Dur : 090 ms QT Int : 346 ms P-R-T Axes : 062 084 028 degrees QTc Int : 441 ms Normal sinus rhythm Normal ECG When compared with ECG of 06-JAN-2023 12:31, No significant change was found Referred By: Lizzette Luna Electronically Signed By:Melecio Cesar
[2023-01-06] MEDS: Atorvastatin Calcium 80 MG TABLET PO (19:53)
[2023-01-06] MEDS: dilTIAZem HCL 30 MG TABLET PO (19:53)
[2023-01-06] MEDS: Apixaban 5 MG TABLET PO (19:53)
[2023-01-06] MEDS: metFORMIN HCl 1,000 MG TABLET 1000 MG PO (19:53)
[2023-01-06 20:46] LABS: Troponin-I High Sensitivity < 2.7 ng/L (<3.5-35.0)
[2023-01-06 23:34] VITALS: BP 126/86; PULSE 92; RESP 14; TEMP 36.6; O2SAT 95
--- NOTE | 2023-01-07 06:15 | PC.NURSE ---
Patient slept through the night, no distress observed/reported, behavior non concerning, ambulates steadily with walker, medication compliant, VSS, disposition per care team voluntary inpatient bed search, will continue to monitor.
[2023-01-07 07:57] VITALS: BP 121/78; PULSE 88; RESP 15; TEMP 36.2; O2SAT 94
[2023-01-07] MEDS: dilTIAZem HCL 30 MG TABLET PO ×4 (08:07→21:32)
[2023-01-07] MEDS: Fenofibrate 54 MG TABLET PO (08:07)
[2023-01-07] MEDS: Apixaban 5 MG TABLET PO ×2 (08:07→21:33)
[2023-01-07] MEDS: metFORMIN HCl 1,000 MG TABLET 1000 MG PO ×2 (08:07→21:33)
[2023-01-07] MEDS: Sertraline HCL 25 MG TABLET 75 MG PO (08:07)
[2023-01-07] MEDS: Propranolol HCL 10 MG TABLET PO (11:07)
--- NOTE | 2023-01-07 12:30 | PM.PSYCN ---
History of Present Illness Date of Service: 01/07/2023 Chief Complaint: CRISIS SI Reason for Consult: severe depression Discussed with referring provider: Yes Sources of Information: patient interviewed, chart reviewed and crisis/core team assessment reviewed HPI Narrative: Mr. 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 He was medically admitted for afiv with RVR and acute respiratory failure. He was medically discharged from [facility] on 01/05, pt self presented to [facility] on 01/06 reporting increased depression,intermittent suicidal ideation. Note that patient was not seen by psychiatry or care team during admission to medicine. Pt reports feeling depressed for several months. He endorses anhedonia, hopeless, suicidal ideation, poor sleep, nightmares. He reports out of body experiences, seeing himself on the floor. He reports OD was with intent to end his life and he continues to feel profoundly depressed. He reports he does not know trigger of depression. 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 He reports his life was seemingly perfect. However, he reports depression has worsened in several months. He does appear with some cognitive impairment in that recalling of information about his medical/psych hx of blurry. His thought process is repetitive at times and has some delay in response. He reports he has been on sertraline for about 2 months. He recently started this medication in [place]. Past Psychiatric History: Inpatient: more than 10 years ago at [facility] OP: none Past trial: sertraline Medical Evaluation Reviewed: Yes Diagnostics Vital Signs (24Hr): Vital Signs - 24 hr 01/06/23 12:31 01/06/23 18:47 01/06/23 23:34 Temperature 98.6 F 97.7 F 97.8 F Pulse Rate 92 93 92 Respiratory Rate 18 16 14 Blood Pressure 146/98 H 105/72 126/86 Pulse Oximetry 94 94 95 Oxygen Delivery Method Room Air Room Air Room Air 01/07/23 07:57 Temperature 97.1 F Pulse Rate 88 Respiratory Rate 15 Blood Pressure 121/78 Pulse Oximetry 94 Oxygen Delivery Method Room Air BMI result Body Mass Index 28.1 Labs 01/06/23 12:43 01/06/23 12:43 Labs: Laboratory Results - last 48 hr 01/06/23 01/06/23 01/06/23 12:43 12:43 12:43 WBC 11.0 H RBC 5.53 D Hgb 16.8 D Hct 47.9 D MCV 86.6 MCH 30.4 MCHC 35.1 RDW 11.9 Plt Count 242 D MPV 10.1 Immature Gran % (Auto) Cancelled Neut % (Auto) Cancelled Lymph % (Auto) Cancelled [place] % (Auto) Cancelled Eos % (Auto) Cancelled Baso % (Auto) Cancelled Lymph # (Auto) Cancelled [place] # (Auto) Cancelled Eos # (Auto) Cancelled Baso # (Auto) Cancelled Abs Immat Gran (auto) Cancelled Absolute Neuts (auto) Cancelled Absolute Nucleated RBC 0.000 Nucleated RBC % (auto) 0.0 Neutrophils % (Manual) 61 Band Neutrophils % 1 L Lymphocytes % (Manual) 30 Monocytes % (Manual) 4 Eosinophils % (Manual) 2 Metamyelocytes % 2 Abs Neuts (Manual) 6.8 Lymphocytes # (Manual) 3.3 Monocytes # (Manual) 0.4 Eosinophils # (Manual) 0.2 Metamyelocytes # 0.2 Platelet Estimate NORMAL Plt Morphology Comment NORMAL RBC Morphology NORMAL Sodium 139 Potassium 4.0 Chloride 103 Carbon Dioxide 22 Anion Gap 18 BUN 27 H Creatinine 1.10 Estim Creat Clear Calc 84.4 Estimated GFR > 60 Random Glucose 199 H Calcium 9.9 Magnesium 2.2 Total Bilirubin 0.6 AST 27 ALT 43 H Alkaline Phosphatase 64 Troponin I High Sens B-Natriuretic Peptide Total Protein 7.5 Albumin 4.4 Urine Color Urine Appearance Urine pH Ur Specific [place] Urine Protein Urine Glucose (UA) Urine Ketones Urine Blood Urine Nitrite Ur Leukocyte Esterase Urine RBC Urine WBC Ur Squamous Epith Cells Urine Bacteria Hyaline Casts Salicylates < 5.0 L Urine Opiates Screen Urine Fentanyl Screen Acetaminophen < 17 Ur Barbiturates Screen Ur Phencyclidine Scrn Ur Amphetamines Screen U Benzodiazepines Scrn Urine Cocaine Screen U Marijuana (THC) Screen Ethyl Alcohol COVID-19 (JALEN) Negative COVID-19 Clin Com See Note 01/06/23 01/06/23 01/06/23 12:43 12:43 12:43 WBC RBC Hgb Hct MCV MCH MCHC RDW Plt Count MPV Immature Gran % (Auto) Neut % (Auto) Lymph % (Auto) [place] % (Auto) Eos % (Auto) Baso % (Auto) Lymph # (Auto) [place] # (Auto) Eos # (Auto) Baso # (Auto) Abs Immat Gran (auto) Absolute Neuts (auto) Absolute Nucleated RBC Nucleated RBC % (auto) Neutrophils % (Manual) Band Neutrophils % Lymphocytes % (Manual) Monocytes % (Manual) Eosinophils % (Manual) Metamyelocytes % Abs Neuts (Manual) Lymphocytes # (Manual) Monocytes # (Manual) Eosinophils # (Manual) Metamyelocytes # Platelet Estimate Plt Morphology Comment RBC Morphology Sodium Potassium Chloride Carbon Dioxide Anion Gap BUN Creatinine Estim Creat Clear Calc Estimated GFR Random Glucose Calcium Magnesium Total Bilirubin AST ALT Alkaline Phosphatase Troponin I High Sens B-Natriuretic Peptide Total Protein Albumin Urine Color Yellow Urine Appearance Clear Urine pH 6.0 Ur Specific [place] >= 1.030 H Urine Protein Negative Urine Glucose (UA) >=1000 H Urine Ketones Negative Urine Blood Negative Urine Nitrite Negative Ur Leukocyte Esterase Negative Urine RBC 0-2 Urine WBC 0-5 Ur Squamous Epith Cells 0-2 Urine Bacteria None Seen Hyaline Casts 0-2 Salicylates Urine Opiates Screen Not Detected Urine Fentanyl Screen POSITIVE H Acetaminophen Ur Barbiturates Screen POSITIVE H Ur Phencyclidine Scrn Not Detected Ur Amphetamines Screen Not Detected U Benzodiazepines Scrn Not Detected Urine Cocaine Screen Not Detected U Marijuana (THC) Screen Not Detected Ethyl Alcohol < 10 COVID-19 (JALEN) COVID-19 Clin Com 01/06/23 01/06/23 01/06/23 12:43 14:31 20:01 WBC RBC Hgb Hct MCV MCH MCHC RDW Plt Count MPV Immature Gran % (Auto) Neut % (Auto) Lymph % (Auto) [place] % (Auto) Eos % (Auto) Baso % (Auto) Lymph # (Auto) [place] # (Auto) Eos # (Auto) Baso # (Auto) Abs Immat Gran (auto) Absolute Neuts (auto) Absolute Nucleated RBC Nucleated RBC % (auto) Neutrophils % (Manual) Band Neutrophils % Lymphocytes % (Manual) Monocytes % (Manual) Eosinophils % (Manual) Metamyelocytes % Abs Neuts (Manual) Lymphocytes # (Manual) Monocytes # (Manual) Eosinophils # (Manual) Metamyelocytes # Platelet Estimate Plt Morphology Comment RBC Morphology Sodium Potassium Chloride Carbon Dioxide Anion Gap BUN Creatinine Estim Creat Clear Calc Estimated GFR Random Glucose Calcium Magnesium Total Bilirubin AST ALT Alkaline Phosphatase Troponin I High Sens < 2.7 D < 2.7 B-Natriuretic Peptide < 10 Total Protein Albumin Urine Color Urine Appearance Urine pH Ur Specific [place] Urine Protein Urine Glucose (UA) Urine Ketones Urine Blood Urine Nitrite Ur Leukocyte Esterase Urine RBC Urine WBC Ur Squamous Epith Cells Urine Bacteria Hyaline Casts Salicylates Urine Opiates Screen Urine Fentanyl Screen Acetaminophen Ur Barbiturates Screen Ur Phencyclidine Scrn Ur Amphetamines Screen U Benzodiazepines Scrn Urine Cocaine Screen U Marijuana (THC) Screen Ethyl Alcohol COVID-19 (JALEN) COVID-19 Clin Com Imaging Radiology Impressions: ITS Impressions Chest X-Ray 01/06/23 14:07 IMPRESSION: No acute cardiopulmonary process. Mental Status Exam Mental Status Exam Narrative: Appearance:wearing hospital gown, fair hygiene, in NAD Behavior:cooperative Speech:clear, some delayed response rate, soft, spontaneous Psychomotor:some retardation noted Thought process: tangential, repetitive at times Thought content: feeling profoundly depressed, worried about his depression leading again to suicide attempt Mood: depressed Affect: blunted SI:passive HI: none VH/AH: hearing some voices at night but mumbles Delusions: none Insight/judgment: fair x 2 Memory/cog: alert, oriented x 3. would benefit from MOCA. Medications Medications Current Medications Apixaban (Apixaban 5 Mg Tablet) 5 mg PO BID [facility] Last Admin: 01/07/23 08:07 Dose: 5 mg Atorvastatin Calcium (Atorvastatin Calcium 80 Mg Tablet) 80 mg PO BEDTIME [facility] Last Admin: 01/06/23 19:53 Dose: 80 mg Diltiazem HCl (Diltiazem Hcl 30 Mg Tablet) 30 mg PO QID [facility]; Protocol Last Admin: 01/07/23 08:07 Dose: 30 mg Fenofibrate (Fenofibrate 54 Mg Tablet) 54 mg PO DAILY [facility] Last Admin: 01/07/23 08:07 Dose: 54 mg Metformin HCl (Metformin Hcl 1,000 Mg Tablet) 1,000 mg PO BID [facility] Last Admin: 01/07/23 08:07 Dose: 1,000 mg Naproxen (Naproxen 250 Mg Tablet) 500 mg PO BID PRN PRN Reason: Pain Pharmacy Consult (Consult Rx Perform Med Rec) 1 each MISCELLANE ONCE PRN PRN Reason: Consult order Propranolol HCl (Propranolol Hcl 10 Mg Tablet) 10 mg PO BID PRN; Protocol PRN Reason: chest pain / anxiety Last Admin: 01/07/23 11:07 Dose: 10 mg Sertraline HCl (Sertraline Hcl 25 Mg Tablet) 75 mg PO DAILY [facility] Last Admin: 01/07/23 08:07 Dose: 75 mg Testosterone Cypionate (Testosterone Cypionate 200 Mg/1 Ml Vial) 100 mg IM Th [facility] Allergies Allergies Allergy/AdvReac Type Severity Reaction Status Date / Time No Known Allergies Allergy Verified 12/31/22 13:38 [No Known Allergies*] Assessment & Plan Assessment & Plan (1) MDD (major depressive disorder), recurrent episode, severe: Status: Acute Code(s): F33.2 - Major depressive disorder, recurrent severe without psychotic features Plan Mr. Freeman is a 52 year-old male with hx of depression, substance use in remission for more than 10 year who had an intentional OD on opioids over a week ago. He was medically admitted then for afib with RVR and acute respiratory failure. He was discharged on 01/05, represented on 01/06 to [facility] reporting severe depression, worried that he may have another suicide attempt if depression not treated. In the ED, pt presents as blunted, delayed in response rate, sense of guilt, poor sleep/appetite. He does appear with a melancholic type of depression. We discussed risks, benefits and alternative treatment options, pt agrees to increase sertraline to 100mg po daily. WIll add abilify to boost antidepressant effect. PLAN 1. Inpatient level of care due to severe depression, melancholic type. 2. Increase sertraline to 100mg po daily. Start abilify 5mg po daily. Total time managing care of this patient today ____ minutes.
[2023-01-07] MEDS: ARIPiprazole 5 MG TABLET PO (13:46)
[2023-01-07] MEDS: Atorvastatin Calcium 80 MG TABLET PO (21:32)
[2023-01-07 22:19] VITALS: BP 130/78; PULSE 93; RESP 16; TEMP 36.6; O2SAT 95
--- NOTE | 2023-01-08 02:40 | PC.NURSE ---
Pt sleeping at the bedside in no apparent distress. Breaths are even, regular, and unlabored. Will continue to monitor.
[2023-01-08 06:43] VITALS: BP 123/84; PULSE 92; RESP 17; TEMP 36.4; O2SAT 98
[2023-01-08] MEDS: Apixaban 5 MG TABLET PO ×2 (08:57→21:05)
[2023-01-08] MEDS: Sertraline HCL 100 MG TABLET PO (08:57)
[2023-01-08] MEDS: metFORMIN HCl 1,000 MG TABLET 1000 MG PO ×2 (08:57→21:05)
[2023-01-08] MEDS: ARIPiprazole 5 MG TABLET PO (08:57)
[2023-01-08] MEDS: dilTIAZem HCL 30 MG TABLET PO ×4 (08:57→21:06)
[2023-01-08 09:00] VITALS: BP 125/82; PULSE 106; RESP 18; TEMP 36.3; O2SAT 96
[2023-01-08] MEDS: Fenofibrate 54 MG TABLET PO (10:31)
[2023-01-08] MEDS: Loperamide HCl 2 MG CAPSULE PO (10:31)
--- NOTE | 2023-01-08 15:53 | PC.NURSE ---
Pt resting in bed most of the shift. in X 2 at bedside. Be is soft spoken. Reports having thoughts of SI saying, thoughts of the easy way out . Pt c/o loose stool. Medicated as ordered.
[2023-01-08 17:09] VITALS: BP 122/83; PULSE 105; RESP 18; TEMP 36.8; O2SAT 98
--- NOTE | 2023-01-08 17:40 | PC.ADMIT ---
Patient is a 52 y/o irish/algerian speaking male who self presented to the [facility] ED with increased anxiety, depression and guilt for his recent suicide attempt on 12/31/22. Pt was admitted to the unit on a CV at approx. 1605. Per assessment pt was an active heroin user for twenty years with the being sober the last ten years. Pt OD'd 12/31/2022on fentanyl and was found by a bystander who did CPR until the pt was brought to the hospital where he was on the medical floor until dc on 01/05/23, pt returned on 01/06. Pt was calm and cooperative during admission process. Pts mood is depressed with a flat affect. Pt has poor eye contact with muffled speech. Pts reports a good appetite with poor sleep. Pt has difficulty getting to sleep and staying asleep due to nightmares and racing thoughts. When asked about recent changes, pt says a lot of bad things . Pt was able to expand saying his marriage is ending and he is turning his house in [place] over to his son. He will being moving back to [place]. Pt reports incarcerations throughout his young adult and adult life, also several hospitalizations. Pts last hospitalization was over 8 years ago at [place]. Pt remains helpless and hopeless with his future uncertain. Aj reports going to the hospital in August 2022 and was dx'd with AFIB, HTN and Diabetes. Pt thinks he suffered a TBI when he jumped off the parking garage attempting suicide when he was a young adult. Pt has no known allergies. Pt is currently using a walker since his overdose. Pt reports that he has been weak since the incident, he didn't use one prior. Pt also has questionable aspiration pneumonia from CPR, but current xray shows no abnormalities.
[2023-01-08] MEDS: Propranolol HCL 10 MG TABLET PO (21:05)
[2023-01-08] MEDS: Atorvastatin Calcium 80 MG TABLET PO (21:06)
[2023-01-09 08:24] LABS: Glucose, Whole Blood 194 mg/dL (60-115)
[2023-01-09] MEDS: dilTIAZem HCL 30 MG TABLET PO ×4 (08:43→22:14)
[2023-01-09] MEDS: Fenofibrate 54 MG TABLET PO (08:44)
[2023-01-09] MEDS: Apixaban 5 MG TABLET PO ×2 (08:44→22:14)
[2023-01-09] MEDS: metFORMIN HCl 1,000 MG TABLET 1000 MG PO ×2 (08:44→22:15)
[2023-01-09] MEDS: ARIPiprazole 5 MG TABLET PO (08:44)
[2023-01-09] MEDS: Sertraline HCL 100 MG TABLET PO (08:44)
[2023-01-09 08:59] VITALS: BP 119/78; PULSE 83; RESP 18; TEMP 36.6; O2SAT 97
[2023-01-09 09:08] LABS: Alanine Aminotransferase 19 U/L (0-40); Alkaline Phosphatase 61 U/L (39-117); Anion Gap 18 (12-20); Aspartate Amino Transferase 19 U/L (5-37); Bilirubin Total 0.6 mg/dL (0.0-1.0); Blood Urea Nitrogen 20 mg/dL (9-16); Calcium 9.5 mg/dL (8.4-10.2); Carbon Dioxide 21 mmol/L (22-29); Chloride 101 mmol/L (96-108); Cholesterol 188 mg/dL; Creatinine Clr Calc Pharmacy 79.4; Estimated Glomerular Filt Rate > 60; Glucose Fasting 180 mg/dL (60-99); HDL Cholesterol 18 mg/dL; Potassium 4.3 mmol/L (3.3-5.1); Sodium 136 mmol/L (135-145); Triglycerides 1374 mg/dL
[2023-01-09 09:14] LABS: Estimated Average Glucose 146 mg/dL; Hemoglobin A1c % 6.7 %
--- NOTE | 2023-01-09 09:23 | P.HPPS_ITS ---
HPI Date of Service: 01/09/23 Chief Complaint: depression HPI Subjective Notes: Snyder Warning (given and shows understanding) and Conditional Voluntary Narrative: Mr. 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 He was medically admitted for afiv with RVR and acute respiratory failure. He was medically discharged from [facility] on 01/05, pt self presented to [facility] on 01/06 reporting increased depression,intermittent suicidal ideation. Note that patient was not seen by psychiatry or care team during admission to medicine. In the ED, pt reports feeling depressed for several months. He endorses anhedonia, hopeless, suicidal ideation, poor sleep, nightmares. He reports out of body experiences, seeing himself on the floor. He reports OD was with intent to end his life and he continues to feel profoundly depressed. He reports he does not know trigger of depression. 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 He reports his life was seemingly perfect. However, he reports depression has worsened in several months. He does appear with some cognitive impairment in that recalling of information about his medical/psych hx of blurry. His thought process is repetitive at times and has some delay in response. He reports he has been on sertraline for about 2 months. He recently started this medication in [place]. On the unit, pt continues to report that he feels very depressed, fatigued, hopeless. He reports on going headaches which he reports are new. He denies any plan or intent to harm himself or others. Past Psychiatric History: [facility]patient: [facility] than [facility] OP: none Past trial: sertraline Medical Evaluation Reviewed: Yes [facility] Medical History (Updated 01/09/23 @ 16:16 by MISHEL Mckee) Diabetes Drug overdose MDD (major depressive disorder), recurrent episode, severe PAF (paroxysmal atrial fibrillation) Psychiatric pseudoseizure Diagnostics Vital Signs (24Hr): Vital Signs - 24 hr 01/08/23 17:09 01/09/23 08:59 Temperature 98.2 F 97.9 F Pulse Rate 105 H 83 Respiratory Rate 18 18 Blood Pressure 122/83 119/78 Pulse Oximetry 98 97 Oxygen Delivery Method Room Air Room Air BMI result Body Mass Index 28.1 Labs 01/06/23 12:43 01/09/23 08:28 Labs: Laboratory Results - last 48 hr 01/09/23 01/09/23 01/09/23 08:20 08:28 08:28 Sodium 136 Potassium 4.3 Chloride 101 Carbon Dioxide 21 L Anion Gap 18 BUN 20 H Creatinine 1.17 Estim Creat Clear Calc 79.4 Estimated GFR > 60 POC Glucose 194 H Fasting Glucose 180 H Estimat Average Glucose 146 Hemoglobin A1c % 6.7 Calcium 9.5 Total Bilirubin 0.6 AST 19 ALT 19 Alkaline Phosphatase 61 Total Protein 7.0 Albumin 4.0 Triglycerides 1374 Cholesterol 188 LDL Cholesterol, Calc TNP HDL Cholesterol 18 Vitamin B12 Cancelled Folate Cancelled Imaging Radiology Impressions: ITS Impressions Chest X-Ray 01/06/23 14:07 IMPRESSION: No acute cardiopulmonary process. Meds/Allergies Meds Home Medications Medication Instructions Recorded Confirmed Type fenofibrate 54 mg tablet 54 mg PO DAILY 12/31/22 01/06/23 History metformin 1,000 mg tablet 1,000 mg PO BID 12/31/22 01/06/23 History naproxen sodium 220 mg tablet 440 mg PO BID PRN Pain 12/31/22 01/06/23 History (Aleve) propranolol 10 mg tablet 10 mg PO BID PRN chest pain / 12/31/22 01/06/23 History anxiety rosuvastatin 20 mg tablet 20 mg PO BEDTIME 12/31/22 01/06/23 History testosterone cypionate 200 mg/mL 100 mg IM QWEEK 12/31/22 01/06/23 History intramuscular kit Allergies Allergies Allergy/AdvReac Type Severity Reaction Status Date / Time No Known Allergies Allergy Verified 12/31/22 13:38 [No Known Allergies*] Mental Status Exam Mental Status Exam Narrative: Appearance:wearing hospital gown, fair hygiene, in NAD Behavior:cooperative Speech:clear, some delayed response rate, soft, spontaneous Psychomotor:some retardation noted Thought process: tangential, repetitive at times Thought content: feeling profoundly depressed, worried about his depression l eading again to suicide attempt Mood: depressed Affect: blunted SI:passive HI: none VH/AH: hearing some voices at night but mumbles Delusions: none Insight/judgment: fair x 2 Memory/cog: alert, oriented x 3. would benefit from MOCA. Assessment & Plan Assessment & Plan (1) MDD (major depressive disorder), recurrent episode, severe: Status: Acute Code(s): F33.2 - Major depressive disorder, recurrent severe without psychotic features Plan Mr. Freeman is a 52 year-old male with hx of MDD. 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 Pt reports increasingly more depressed, hopeless, anhedonia, low energy levels, poor appetite. He currently denies any plan or intent to harm himself but worries if depression untreated he will again become suicidal. He reports some guilt over suicide attempt and effect on his family. No clear triggers to his depression as he reports his life was perfect. He reports OD on opioid was suicide attempt. He denies any cravings to use substances. PLAN 1. Admit to M3, 15 minutes checks, CV 2. Continue current medications. Sertraline increase to 100mg po daily on 01/07, abilify 5mg po daily. 3. Obtain collateral information 4. Aftercare planning. Patient educated on: diagnosis Reason for continued inpatient stay Substantial Risk for: harm to self and inability to function Statement Statement: I have reviewed the history and physical and performed a pertinent examination on my patient. No changes have occurred unless specified. If the History and Physical was not performed prior to admission, the Hospitalist's service will be consulted for completing the admission physical. Time Spent With Patient Time: Total time managing care of this patient today ____ minutes.
[2023-01-09 09:35] LABS: Free T4 (Free Thyroxine) 0.93 ng/dL (0.71-1.85); Thyroid Stimulating Hormone 2.06 uIU/mL (0.32-4.0)
[2023-01-09 09:56] LABS: Folate 15.7 ng/mL (> or = 4.0); Vitamin B12 534 pg/mL (200-900)
[2023-01-09 13:53] VITALS: BP 118/73; PULSE 111
--- NOTE | 2023-01-09 13:55 | PM.EVENT ---
Event Note Date of Service: 01/09/23 Event Note: Pt with hypertriglyceridemia 1300. He is already taking rosuvastatin 20mg. Recommend increasing fenofibrate to 160mg daily. Unfortunately there are no omega-3 fatty acid supplements on formulary but would recommend (Lovaza) on discharge or if can be prescribed and brought in from external pharmacy. Need to reduce fat intake. Added low fat diet to diabetic diet. 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 Severe hypertriglyceridemia can lead to pancreatitis without intervention. Diet modification should be encouraged. Time Spent With Patient Time: Total time managing care of this patient today ____ minutes.
[2023-01-09 13:56] LABS: Lipase 48 U/L (8-78)
--- NOTE | 2023-01-09 15:59 | P.CONHOSP_ITS ---
History of Present Illness Data of Consult Service Date: 01/09/23 Requesting physician: Heaven Ochoa Primary Care Provider: Nonstaff Physician HPI Reason for consult: LLE pain, abd pain 52-year-old male with history of type 2 diabetes, paroxysmal atrial fibrillation anticoagulated with Eliquis, opiate abuse, psychiatric pseudoseizures he admitted to Psychiatry with consult placed to hospitalist service for management of left thigh pain and generally feeling unwell. The patient reports he had a fall during medical admission while having a pseudoseizure. He is unable to tell me much of the event. Since then he states he has had pain in the anterior and lateral left thigh. No hip pain. Has full ROM of hips and knees bilaterally. No calf tenderness. No bruising. He states since then he cannot fully bear weight and has been ambulating with a walker. He was admitted medically following an opiate overdose and afib rvr. He is also reporting feeling generally unwell. He had an episode of diarrhea yesterday but had formed stool today. No blood. No fevers, chills. Does endorse some nausea but no vomiting. Reports diffuse 8/10 abd pain without radiation. No urinary symptoms. Pt afebrile, VSS. Review of Systems Review of Systems: Yes all other systems are reviewed and are negative [facility]LY [facility], [facility] Medical History (Updated 01/09/23 @ 16:16 by MISHEL Mckee) Diabetes Drug overdose MDD (major depressive disorder), recurrent episode, severe PAF (paroxysmal atrial fibrillation) Psychiatric pseudoseizure Social History Household Members: None Household Members Other:: CURRENTLY LIVING WITH MOTHER, TRANSFERRING FROM [place] Housing: Apartment Housing Other:: Formally lived in [place] Do you presently have visiting nurse or other home services: No Unable to assess alcohol history related to: Unknown Alcohol intake: former Patient Tobacco Use Status: Former Tobacco user Quit Date: 3 months ago Tobacco use type: Cigarette Cigarette Packs Per Day: 1 Cigarettes Per Day: 20.0 Years Smoked: 20 Smoked in Last 30 Days: No Patient Interested in Nicotine Replacement: No Patient Given Instructions on How to Stop Smoking: Yes Date Education Initiated: 01/08/23 Second Hand Smoke Exposure: No Use of substances other than those prescribed or required for medical reasons: Yes Substance Use Type: Heroin Substance Use Frequency: Recent Binge Substance Use Frequency Other:: Patient used to take herione but stopped taking regularly 10 years ago Last Used Substance Other:: 12/31/22 in SI attempt, 10 yrs prior to this date Currently Displaying Signs/Symptoms of Drug Intoxication Withdrawal: No Any prior treatment program specific to substance use: No Have you been hit, kicked, punched, or otherwise hurt by someone within the past year? If so, by whom?: No Do you feel safe in your current relationship?: Yes Is there a partner from a previous relationship who is making you feel unsafe now?: No Are you made to feel afraid or neglected: No Advance Directives: No Advance Directives Information Provided: No Healthcare Proxy: No Guardian: No Do you have thoughts of harming others: None Do you have a plan to hurt others: No Plan Recently lost weight without trying: No Eating poorly because of decreased appetite: No Nutrition Risks: No Nutritional Risk Poor oral hygiene: No service: No Current occupational status: employed Sexual orientation: Straight/Heterosexual Meds Allergies Allergy/AdvReac Type Severity Reaction Status Date / Time No Known Allergies Allergy Verified 12/31/22 13:38 [No Known Allergies*] Active Medications: Current Medications Acetaminophen (Acetaminophen 325 Mg Tablet) 650 mg PO Q6H PRN PRN Reason: Headache/Pain Mild Scale (1-3) Al Hydroxide/Mg Hydroxide (Magnesium Hydrox/Alum Hydrox 30 Ml Oral.Susp) 30 ml PO Q6H PRN PRN Reason: Heartburn/Nausea Apixaban (Apixaban 5 Mg Tablet) 5 mg PO BID [facility] Last Admin: 01/09/23 08:44 Dose: 5 mg Aripiprazole (Aripiprazole 5 Mg Tablet) 5 mg PO DAILY [facility] Last Admin: 01/09/23 08:44 Dose: 5 mg Atorvastatin Calcium (Atorvastatin Calcium 80 Mg Tablet) 80 mg PO BEDTIME [facility] Last Admin: 01/08/23 21:06 Dose: 80 mg Diltiazem HCl (Diltiazem Hcl 30 Mg Tablet) 30 mg PO QID [facility]; Protocol Last Admin: 01/09/23 13:52 Dose: 30 mg Fenofibrate (Fenofibrate 160 Mg Tablet) 160 mg PO DAILY [facility] Hydroxyzine HCl (Hydroxyzine Hcl 25 Mg Tablet) 25 mg PO Q6H PRN PRN Reason: Anxiety Magnesium Hydroxide (Milk Of Magnesia 30 Ml Oral.Susp) 30 ml PO DAILY PRN PRN Reason: Constipation Metformin HCl (Metformin Hcl 1,000 Mg Tablet) 1,000 mg PO BID [facility] Last Admin: 01/09/23 08:44 Dose: 1,000 mg Naproxen (Naproxen 250 Mg Tablet) 500 mg PO BID PRN PRN Reason: Pain Nicotine Polacrilex (Nicotine Polacrilex 2 Mg Gum) 4 mg BUCCAL Q2H PRN PRN Reason: Nicotine Cravings Propranolol HCl (Propranolol Hcl 10 Mg Tablet) 10 mg PO BID PRN; Protocol PRN Reason: chest pain / anxiety Last Admin: 01/08/23 21:05 Dose: 10 mg Sertraline HCl (Sertraline Hcl 100 Mg Tablet) 100 mg PO DAILY [facility] Last Admin: 01/09/23 08:44 Dose: 100 mg Testosterone Cypionate (Testosterone Cypionate 200 Mg/1 Ml Vial) 100 mg IM Th [facility] Trazodone HCl (Trazodone Hcl 50 Mg Tablet) 50 mg PO BEDTIME MRX1 PRN PRN Reason: Insomnia Home Medications Medication Instructions Recorded Confirmed Last Taken Type fenofibrate 54 mg tablet 54 mg PO DAILY 12/31/22 01/06/23 12/30/22 History metformin 1,000 mg tablet 1,000 mg PO BID 12/31/22 01/06/23 12/30/22 History naproxen sodium 220 mg tablet 440 mg PO BID PRN Pain 12/31/22 01/06/23 Unknown History (Aleve) propranolol 10 mg tablet 10 mg PO BID PRN chest pain / 12/31/22 01/06/23 12/30/22 History anxiety rosuvastatin 20 mg tablet 20 mg PO BEDTIME 12/31/22 01/06/23 12/30/22 History testosterone cypionate 200 mg/mL 100 mg IM QWEEK 12/31/22 01/06/23 01/04/23 History intramuscular kit Physical Exam Vital Signs and Narrative: Vital Signs: Last Vital Signs Temp 97.9 F 01/09/23 08:59 Pulse 111 H 01/09/23 13:53 Resp 18 01/09/23 08:59 BP 118/73 01/09/23 13:53 Pulse Ox 97 01/09/23 08:59 O2 Del Method Room Air 01/09/23 08:59 BMI result Body Mass Index 28.1 Constitutional - Awake and Alert, No apparent distress Eyes - PERRLA, EOMI Cardiovascular - S1S2, RRR, No edema Respiratory - Normal lung expansion, Normal respiratory effort, No respiratory distress, CTA bilaterally Gastrointestinal - NT / ND; +BS; No rebound or guarding Extremities - no calf tenderness bilaterally, no swelling Musculoskeletal - Normal inspection, normal ROM of hips and knees. Tenderness of the anterior and lateral aspect of the left thigh without swelling, erythema, warmth. Skin - Warm/Dry Neurological - Alert & oriented x3, CN II-XII in tact, 5/5 strength BUE and BLE Psychological - Appropriate affect Results Labs 01/06/23 12:43 01/09/23 08:28 Labs: Laboratory Results - last 24 hr 01/09/23 01/09/23 01/09/23 08:20 08:28 08:28 Anion Gap 18 Estim Creat Clear Calc 79.4 Estimated GFR > 60 POC Glucose 194 H Fasting Glucose 180 H Estimat Average Glucose 146 Hemoglobin A1c % 6.7 Calcium 9.5 Total Bilirubin 0.6 AST 19 ALT 19 Alkaline Phosphatase 61 Total Protein 7.0 Albumin 4.0 Triglycerides 1374 Cholesterol 188 LDL Cholesterol, Calc TNP HDL Cholesterol 18 Lipase 48 Vitamin B12 Cancelled Folate Cancelled TSH 2.06 Free T4 0.93 01/09/23 08:28 Anion Gap Estim Creat Clear Calc Estimated GFR POC Glucose Fasting Glucose Estimat Average Glucose Hemoglobin A1c % Calcium Total Bilirubin AST ALT Alkaline Phosphatase Total Protein Albumin Triglycerides Cholesterol LDL Cholesterol, Calc HDL Cholesterol Lipase Vitamin B12 534 Folate 15.7 TSH Free T4 Assessment and Plan (1) Routine medical exam: Status: Acute Plan 52-year-old male with history of type 2 diabetes, paroxysmal atrial fibrillation anticoagulated with Eliquis, opiate abuse, psychiatric pseudoseizures he admitted to Psychiatry with consult placed to hospitalist service for management of left thigh pain and generally feeling unwell. #Acute left thigh pain -s/p fall during pseudoseziure -XRay of left femur ordered to evaluate -Less likely compartment syndrome, DVT -Recommend tylenol, lidocaine patch -Continue ambulating with walker, consider PT eval #Abd pain -abd exam benign, imaging not indicated. lipase normal. low suspicion for pancreatitis. Will recheck lipase, cbc, cmp -Simethicone for gas/bloating. Loperamide prn for diarrhea -Does not need stool testing. Had formed stool this morning -ondansetron nausea -bland diet as tolerated Will follow for results. Time Spent With Patient Time: Total time managing care of this patient today ____ minutes.
[2023-01-09] MEDS: Magnesium Hydrox/Alum Hydrox 30 ML ORAL.SUSP PO (16:51)
[2023-01-09] MEDS: Lidocaine 4 % Patch ADH..PATCH 1 PATCH TRANSDERMA (16:52)
[2023-01-09 16:53] LABS: MANUAL DIFF FLAG NO
[2023-01-09 16:56] LABS: Basophils Absolute Auto 0.1 X10*3/uL (0.0-0.2); Basophils Percent Auto 0.6 % (0-2); Eosinophils Absolute Auto 0.2 X10*3/uL (0.0-0.4); Eosinophils Percent Auto 2.1 % (0-4); Hematocrit 45.8 % (42.0-52.0); Hemoglobin 16.6 g/dl (14.0-18.0); Imm Gran Abs Auto 0.28 X10*3/uL (0.00-0.03); Imm Gran Pct Auto 3.1 % (0.0-0.4); Lymphocytes Absolute Auto 2.9 X10*3/uL (1.2-4.9); Mean Corpuscular HGB Conc 36.2 g/dl (31.0-36.0); Mean Corpuscular Volume 85.6 fL (80.0-98.0); Mean Platelet Volume 10.1 fL (9.4-12.4); Monocytes Absolute Auto 0.6 X10*3/uL (0.1-1.2); Monocytes Percent Auto 6.8 % (2-11); Neutrophils Percent Auto 55.4 % (45-73); Platelet Count 223 X10*3/uL (160-400); Red Blood Count 5.35 X10*6/uL (4.60-5.80); Red Cell Distribution Width 11.8 % (11.0-16.0)
[2023-01-09] MEDS: NaPROXEN 250 MG TABLET 500 MG PO ×2 (17:14→22:13)
[2023-01-09 17:15] VITALS: BP 131/79; PULSE 105
[2023-01-09] MEDS: Simethicone 80 MG TAB.CHEW PO ×2 (17:15→22:14)
[2023-01-09 17:17] LABS: Alanine Aminotransferase 22 U/L (0-40); Albumin Level 4.1 g/dL (3.5-5.0); Alkaline Phosphatase 75 U/L (39-117); Anion Gap 21 (12-20); Aspartate Amino Transferase 20 U/L (5-37); Bilirubin Total 0.6 mg/dL (0.0-1.0); Blood Urea Nitrogen 22 mg/dL (9-16); Calcium 9.6 mg/dL (8.4-10.2); Carbon Dioxide 17 mmol/L (22-29); Chloride 101 mmol/L (96-108); Creatinine Clr Calc Pharmacy 80.7; Estimated Glomerular Filt Rate > 60; Glucose Random 164 mg/dL (60-115); Lipase 61 U/L (8-78); Potassium 4.4 mmol/L (3.3-5.1); Sodium 135 mmol/L (135-145); Total Protein 7.4 g/dL (6.5-8.0)
--- NOTE | 2023-01-09 17:18 | PC.NURSE ---
Pt complaining of left hip pain and was seen by hospitalist. Xray ordered of left femur and results pending. Pt tolerated xray w/o difficulty. Pt was also ordered a Lidocaine patch for hip. Pt placed on low fat diet for elevated triglycerides. Simithicone ordered for bloating.Pt when discussing pain tx with pt , pt reports he cant have Tylenol secondary to liver failure in 2011 at [facility] [place] [facility] [place]. notified
--- NOTE | 2023-01-09 18:13 | PC.NURSE ---
Pt signed a 3 day 01/09/23, up on Sun01/12/23
[2023-01-09 19:50] VITALS: BP 107/72; PULSE 96; RESP 16; TEMP 36.8; O2SAT 98
[2023-01-09] MEDS: Atorvastatin Calcium 80 MG TABLET PO (22:14)
[2023-01-09] MEDS: traZODone HCL 50 MG TABLET PO (22:15)
[2023-01-10 06:00] VITALS: BP 120/68; PULSE 88; RESP 16; TEMP 36.4; O2SAT 98
[2023-01-10 08:48] LABS: Glucose, Whole Blood 266 mg/dL (60-115)
[2023-01-10] MEDS: Apixaban 5 MG TABLET PO ×2 (08:50→22:25)
[2023-01-10] MEDS: dilTIAZem HCL 30 MG TABLET PO ×4 (08:50→22:25)
[2023-01-10] MEDS: Simethicone 80 MG TAB.CHEW PO ×4 (08:50→22:26)
[2023-01-10] MEDS: ARIPiprazole 5 MG TABLET PO (08:50)
[2023-01-10] MEDS: Sertraline HCL 100 MG TABLET PO (08:50)
[2023-01-10] MEDS: metFORMIN HCl 1,000 MG TABLET 1000 MG PO ×2 (08:50→22:25)
[2023-01-10] MEDS: Magnesium Hydrox/Alum Hydrox 30 ML ORAL.SUSP PO (08:51)
[2023-01-10] MEDS: Fenofibrate 160 MG TABLET PO (08:51)
[2023-01-10] MEDS: Lidocaine 4 % Patch ADH..PATCH 1 PATCH TRANSDERMA (08:51)
--- NOTE | 2023-01-10 12:10 | PM.EVENT ---
Documented by User: MISHEL Mayer 01/10/23 12:13 Event Note Date of Service: 01/10/23 Event Note: Her follow-up for patient with hypertriglyceridemia, left thigh pain, and generally feeling unwell. Patient's left femur x-ray negative for acute fracture. Patient reports he is feeling much better today. Still with left thigh pain, bili improved with lidocaine patch. Patient states he is overall feeling ?good? and looking for to possibly being discharged later today. Has no acute medical complaints at this time. Discussed with patient the importance of dietary modification, eating a low-fat diet, and seen his PCP outpatient for management and alteration of his cholesterol medication. Will sign off at this time. Please let us know if there are any acute questions or complaints. Time Spent With Patient Time: Total time managing care of this patient today ____ minutes. Documented by User: Mandi Grajeda MD 01/12/23 15:16 Event Note Date of Service: 01/12/23
[2023-01-10 12:22] VITALS: BP 122/70; PULSE 97; RESP 18
[2023-01-10] MEDS: Famotidine 20 MG TABLET PO (16:47)
--- NOTE | 2023-01-10 18:26 | P.PNPSI_ITS ---
Subjective Subjective Date of Service: 01/10/23 Reason For Visit: depression Subjective Notes: Conditional Voluntary Interim History: Pt seen with . Pt reports feeling slightly better, more energy, improved mood. He denies SI/HI. He reports he spoke with his 9 year-old daughter who witnessed his OD. He reports he wants to go back home soon, to be with daughter and family. He denies VH/AH. No overt delusional content noted or reported. Review of Systems Review of Systems Pt reports left leg pain, ambulating with walker since he he felt while he was on medical floor. He denies SOB He reports headaches on and off daily for past week No chest pain Fatigued, poor appetite, nausea, no vomiting. No diarrhea, no constipation. He reports diffuse abdominal pain. Yes all other systems are reviewed and are negative Mental Status Exam Mental Status Exam Narrative: Appearance:wearing hospital gown, fair hygiene, in NAD Behavior:cooperative Speech:clear, some delayed response rate, soft, spontaneous Psychomotor:some retardation noted Thought process: tangential, repetitive at times Thought content: feeling profoundly depressed, worried about his depression leading again to suicide attempt Mood: depressed Affect: blunted SI:passive HI: none VH/AH: hearing some voices at night but mumbles Delusions: none Insight/judgment: fair x 2 Memory/cog: alert, oriented x 3. would benefit from MOCA. Diagnostics Vital Signs (24Hr): Vital Signs - 24 hr 01/09/23 19:50 01/10/23 06:00 01/10/23 12:22 Temperature 98.2 F 97.6 F Pulse Rate 96 88 97 Respiratory Rate 16 16 18 Blood Pressure 107/72 120/68 122/70 Pulse Oximetry 98 98 Oxygen Delivery Method Room Air Room Air BMI result Body Mass Index 28.1 Labs 01/09/23 16:49 01/09/23 16:49 Labs: Laboratory Results - last 48 hr 01/09/23 01/09/23 01/09/23 08:20 08:28 08:28 WBC RBC Hgb Hct MCV MCH MCHC RDW Plt Count MPV Immature Gran % (Auto) Neut % (Auto) Lymph % (Auto) [place] % (Auto) Eos % (Auto) Baso % (Auto) Lymph # (Auto) [place] # (Auto) Eos # (Auto) Baso # (Auto) Abs Immat Gran (auto) Absolute Neuts (auto) Absolute Nucleated RBC Nucleated RBC % (auto) Sodium 136 Potassium 4.3 Chloride 101 Carbon Dioxide 21 L Anion Gap 18 BUN 20 H Creatinine 1.17 Estim Creat Clear Calc 79.4 Estimated GFR > 60 POC Glucose 194 H Random Glucose Fasting Glucose 180 H Estimat Average Glucose 146 Hemoglobin A1c % 6.7 Calcium 9.5 Total Bilirubin 0.6 AST 19 ALT 19 Alkaline Phosphatase 61 Total Protein 7.0 Albumin 4.0 Triglycerides 1374 Cholesterol 188 LDL Cholesterol, Calc TNP HDL Cholesterol 18 Lipase 48 Vitamin B12 Cancelled Folate Cancelled TSH 2.06 Free T4 0.93 01/09/23 01/09/23 01/09/23 08:28 16:49 16:49 WBC 9.0 RBC 5.35 Hgb 16.6 Hct 45.8 MCV 85.6 MCH 31.0 MCHC 36.2 H RDW 11.8 Plt Count 223 MPV 10.1 Immature Gran % (Auto) 3.1 H Neut % (Auto) 55.4 Lymph % (Auto) 32.0 [place] % (Auto) 6.8 Eos % (Auto) 2.1 Baso % (Auto) 0.6 Lymph # (Auto) 2.9 [place] # (Auto) 0.6 Eos # (Auto) 0.2 Baso # (Auto) 0.1 Abs Immat Gran (auto) 0.28 H Absolute Neuts (auto) 5.0 Absolute Nucleated RBC 0.000 Nucleated RBC % (auto) 0.0 Sodium 135 Potassium 4.4 Chloride 101 Carbon Dioxide 17 L Anion Gap 21 H BUN 22 H Creatinine 1.15 Estim Creat Clear Calc 80.7 Estimated GFR > 60 POC Glucose Random Glucose 164 H Fasting Glucose Estimat Average Glucose Hemoglobin A1c % Calcium 9.6 Total Bilirubin 0.6 AST 20 ALT 22 Alkaline Phosphatase 75 Total Protein 7.4 Albumin 4.1 Triglycerides Cholesterol LDL Cholesterol, Calc HDL Cholesterol Lipase 61 Vitamin B12 534 Folate 15.7 TSH Free T4 01/10/23 08:44 WBC RBC Hgb Hct MCV MCH MCHC RDW Plt Count MPV Immature Gran % (Auto) Neut % (Auto) Lymph % (Auto) [place] % (Auto) Eos % (Auto) Baso % (Auto) Lymph # (Auto) [place] # (Auto) Eos # (Auto) Baso # (Auto) Abs Immat Gran (auto) Absolute Neuts (auto) Absolute Nucleated RBC Nucleated RBC % (auto) Sodium Potassium Chloride Carbon Dioxide Anion Gap BUN Creatinine Estim Creat Clear Calc Estimated GFR POC Glucose 266 H Random Glucose Fasting Glucose Estimat Average Glucose Hemoglobin A1c % Calcium Total Bilirubin AST ALT Alkaline Phosphatase Total Protein Albumin Triglycerides Cholesterol LDL Cholesterol, Calc HDL Cholesterol Lipase Vitamin B12 Folate TSH Free T4 Imaging Radiology Impressions: ITS Impressions Chest X-Ray 01/06/23 14:07 IMPRESSION: No acute cardiopulmonary process. Femur X-Ray 01/09/23 16:39 IMPRESSION: No acute fractures or malalignment. Medications Medications Current Medications Al Hydroxide/Mg Hydroxide (Magnesium Hydrox/Alum Hydrox 30 Ml Oral.Susp) 30 ml PO Q6H PRN PRN Reason: Heartburn/Nausea Last Admin: 01/10/23 08:51 Dose: 30 ml Apixaban (Apixaban 5 Mg Tablet) 5 mg PO BID [facility] Last Admin: 01/10/23 08:50 Dose: 5 mg Aripiprazole (Aripiprazole 5 Mg Tablet) 5 mg PO DAILY [facility] Last Admin: 01/10/23 08:50 Dose: 5 mg Atorvastatin Calcium (Atorvastatin Calcium 80 Mg Tablet) 80 mg PO BEDTIME [facility] Last Admin: 01/09/23 22:14 Dose: 80 mg Diltiazem HCl (Diltiazem Hcl 30 Mg Tablet) 30 mg PO QID [facility]; Protocol Last Admin: 01/10/23 16:47 Dose: 30 mg Famotidine (Famotidine 20 Mg Tablet) 20 mg PO DAILY [facility] Last Admin: 01/10/23 16:47 Dose: 20 mg Fenofibrate (Fenofibrate 160 Mg Tablet) 160 mg PO DAILY [facility] Last Admin: 01/10/23 08:51 Dose: 160 mg Hydroxyzine HCl (Hydroxyzine Hcl 25 Mg Tablet) 25 mg PO Q6H PRN PRN Reason: Anxiety Lidocaine (Lidocaine 4 % Patch Adh..Patch) 1 patch TRANSDERMA DAILY [facility]; Protocol Last Admin: 01/10/23 08:51 Dose: 1 patch Magnesium Hydroxide (Milk Of Magnesia 30 Ml Oral.Susp) 30 ml PO DAILY PRN PRN Reason: Constipation Metformin HCl (Metformin Hcl 1,000 Mg Tablet) 1,000 mg PO BID [facility] Last Admin: 01/10/23 08:50 Dose: 1,000 mg Naproxen (Naproxen 250 Mg Tablet) 500 mg PO BID PRN PRN Reason: Pain Last Admin: 01/09/23 22:13 Dose: 500 mg Nicotine Polacrilex (Nicotine Polacrilex 2 Mg Gum) 4 mg BUCCAL Q2H PRN PRN Reason: Nicotine Cravings Ondansetron HCl (Ondansetron Odt 4 Mg Tab.Rapdis) 4 mg TRANSLINGU Q8H PRN PRN Reason: Nausea Propranolol HCl (Propranolol Hcl 10 Mg Tablet) 10 mg PO BID PRN; Protocol PRN Reason: chest pain / anxiety Last Admin: 01/08/23 21:05 Dose: 10 mg Sertraline HCl (Sertraline Hcl 100 Mg Tablet) 100 mg PO DAILY [facility] Last Admin: 01/10/23 08:50 Dose: 100 mg Simethicone (Simethicone 80 Mg Tab.Chew) [facility] Last Admin: 01/10/23 16:47 Dose: 80 mg Testosterone Cypionate (Testosterone Cypionate 200 Mg/1 Ml Vial) 100 mg IM Th [facility] Trazodone HCl (Trazodone Hcl 50 Mg Tablet) 50 mg PO BEDTIME MRX1 PRN PRN Reason: Insomnia Last Admin: 01/09/23 22:15 Dose: 50 mg Allergies Allergies Allergy/AdvReac Type Severity Reaction Status Date / Time No Known Allergies Allergy Verified 12/31/22 13:38 [No Known Allergies*] Assessment & Plan Assessment & Plan (1) MDD (major depressive disorder), recurrent episode, severe: Status: Acute Code(s): F33.2 - Major depressive disorder, recurrent severe without psychotic features Plan Mr. Freeman is a 52 year-old male with hx of MDD. 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 Pt reports increasingly more depressed, hopeless, anhedonia, low energy levels, poor appetite. He currently denies any plan or intent to harm himself but worries if depression untreated he will again become suicidal. He reports some guilt over suicide attempt and effect on his family. No clear triggers to his depression as he reports his life was perfect. He reports OD on opioid was suicide attempt. He denies any cravings to use substances. PLAN 1. Admit to [facility], 15 minutes checks, CV 2. Continue current medications. Sertraline increase to 100mg po daily on 01/07, abilify 5mg po daily. 3. Obtain collateral information 4. Aftercare planning. 01/10 continue tx. Reason for continued inpatient stay Substantial Risk for: inability to function Time Spent With Patient Time: Total time managing care of this patient today ____ minutes.
[2023-01-10 19:26] LABS: C Reactive Protein < 0.10 mg/dL (< or = 0.50)
[2023-01-10 22:05] VITALS: BP 123/74; PULSE 96; RESP 18; TEMP 36.4; O2SAT 95
[2023-01-10] MEDS: Atorvastatin Calcium 80 MG TABLET PO (22:25)
[2023-01-10] MEDS: traZODone HCL 50 MG TABLET PO (22:26)
[2023-01-10] MEDS: hydrOXYzine HCL 25 MG TABLET PO (22:26)
[2023-01-11 08:57] VITALS: BP 110/70; PULSE 67; RESP 16; TEMP 36.6; O2SAT 94
[2023-01-11] MEDS: Lidocaine 4 % Patch ADH..PATCH 1 PATCH TRANSDERMA (08:59)
[2023-01-11] MEDS: dilTIAZem HCL 30 MG TABLET PO ×4 (08:59→21:13)
[2023-01-11] MEDS: Famotidine 20 MG TABLET PO (08:59)
[2023-01-11] MEDS: Apixaban 5 MG TABLET PO ×2 (08:59→21:13)
[2023-01-11] MEDS: ARIPiprazole 5 MG TABLET PO (08:59)
[2023-01-11] MEDS: metFORMIN HCl 1,000 MG TABLET 1000 MG PO ×2 (08:59→21:12)
[2023-01-11] MEDS: Simethicone 80 MG TAB.CHEW PO ×4 (08:59→21:13)
[2023-01-11] MEDS: Fenofibrate 160 MG TABLET PO (08:59)
[2023-01-11] MEDS: Sertraline HCL 100 MG TABLET PO (09:00)
[2023-01-11 09:23] LABS: Glucose, Whole Blood 180 mg/dL (60-115)
[2023-01-11] MEDS: Testosterone Cypionate 200 MG/1 ML VIAL 100 MG IM (10:08)
--- NOTE | 2023-01-11 10:45 | P.PNPSI_ITS ---
Subjective Subjective Date of Service: 01/11/23 Reason For Visit: depression Subjective Notes: Conditional Voluntary Interim History: Pt reports feeling less depressed. He reports sleeping better. He denies suicidal or homicidal ideation.Pt with brighter affect and does smile during conversation. He reports he is looking forward to see his daugther. He is eager to continue OP psych tx. He does want to make sure he leaves with psych appointments. Per nursing, pt slept through the night. No behavioral concerns. Pt more visible on the unit and social with select peers. Medication Compliance: Yes Side effects from medications: No Review of Systems Review of Systems Pt reports left leg pain, ambulating with walker since he he felt while he was on medical floor. He denies SOB He reports headaches on and off daily for past week No chest pain Fatigued, poor appetite, nausea, no vomiting. No diarrhea, no constipation. He reports diffuse abdominal pain. Yes all other systems are reviewed and are negative Mental Status Exam Mental Status Exam Narrative: Appearance:wearing hospital gown, fair hygiene, in NAD Behavior:cooperative Speech:clear, some delayed response rate, soft, spontaneous Psychomotor:some retardation noted Thought process: tangential, repetitive at times Thought content: feeling profoundly depressed, worried about his depression leading again to suicide attempt Mood: depressed Affect: blunted SI:passive HI: none VH/AH: hearing some voices at night but mumbles Delusions: none Insight/judgment: fair x 2 Memory/cog: alert, oriented x 3. would benefit from MOCA. Diagnostics Vital Signs (24Hr): Vital Signs - 24 hr 01/10/23 12:22 01/10/23 22:05 01/11/23 08:57 Temperature 97.5 F 97.9 F Pulse Rate 97 96 67 Respiratory Rate 18 18 16 Blood Pressure 122/70 123/74 110/70 Pulse Oximetry 95 94 Oxygen Delivery Method Room Air Room Air BMI result Body Mass Index 28.1 Labs 01/09/23 16:49 01/09/23 16:49 Labs: Laboratory Results - last 48 hr 01/09/23 01/09/23 01/09/23 08:28 16:49 16:49 WBC 9.0 RBC 5.35 Hgb 16.6 Hct 45.8 MCV 85.6 MCH 31.0 MCHC 36.2 H RDW 11.8 Plt Count 223 MPV 10.1 Immature Gran % (Auto) 3.1 H Neut % (Auto) 55.4 Lymph % (Auto) 32.0 [place] % (Auto) 6.8 Eos % (Auto) 2.1 Baso % (Auto) 0.6 Lymph # (Auto) 2.9 [place] # (Auto) 0.6 Eos # (Auto) 0.2 Baso # (Auto) 0.1 Abs Immat Gran (auto) 0.28 H Absolute Neuts (auto) 5.0 Absolute Nucleated RBC 0.000 Nucleated RBC % (auto) 0.0 Sodium 135 Potassium 4.4 Chloride 101 Carbon Dioxide 17 L Anion Gap 21 H BUN 22 H Creatinine 1.15 Estim Creat Clear Calc 80.7 Estimated GFR > 60 POC Glucose Random Glucose 164 H Calcium 9.6 Total Bilirubin 0.6 AST 20 ALT 22 Alkaline Phosphatase 75 C-Reactive Protein Total Protein 7.4 Albumin 4.1 Lipase 48 61 01/10/23 01/10/23 01/11/23 08:44 19:03 09:19 WBC RBC Hgb Hct MCV MCH MCHC RDW Plt Count MPV Immature Gran % (Auto) Neut % (Auto) Lymph % (Auto) [place] % (Auto) Eos % (Auto) Baso % (Auto) Lymph # (Auto) [place] # (Auto) Eos # (Auto) Baso # (Auto) Abs Immat Gran (auto) Absolute Neuts (auto) Absolute Nucleated RBC Nucleated RBC % (auto) Sodium Potassium Chloride Carbon Dioxide Anion Gap BUN Creatinine Estim Creat Clear Calc Estimated GFR POC Glucose 266 H 180 H Random Glucose Calcium Total Bilirubin AST ALT Alkaline Phosphatase C-Reactive Protein < 0.10 Total Protein Albumin Lipase Imaging Radiology Impressions: ITS Impressions Chest X-Ray 01/06/23 14:07 IMPRESSION: No acute cardiopulmonary process. Femur X-Ray 01/09/23 16:39 IMPRESSION: No acute fractures or malalignment. Medications Medications Current Medications Al Hydroxide/Mg Hydroxide (Magnesium Hydrox/Alum Hydrox 30 Ml Oral.Susp) 30 ml PO Q6H PRN PRN Reason: Heartburn/Nausea Last Admin: 01/10/23 08:51 Dose: 30 ml Apixaban (Apixaban 5 Mg Tablet) 5 mg PO BID [facility] Last Admin: 01/11/23 08:59 Dose: 5 mg Aripiprazole (Aripiprazole 5 Mg Tablet) 5 mg PO DAILY [facility] Last Admin: 01/11/23 08:59 Dose: 5 mg Atorvastatin Calcium (Atorvastatin Calcium 80 Mg Tablet) 80 mg PO BEDTIME [facility] Last Admin: 01/10/23 22:25 Dose: 80 mg Diltiazem HCl (Diltiazem Hcl 30 Mg Tablet) 30 mg PO QID [facility]; Protocol Last Admin: 01/11/23 08:59 Dose: 30 mg Famotidine (Famotidine 20 Mg Tablet) 20 mg PO DAILY [facility] Last Admin: 01/11/23 08:59 Dose: 20 mg Fenofibrate (Fenofibrate 160 Mg Tablet) 160 mg PO DAILY [facility] Last Admin: 01/11/23 08:59 Dose: 160 mg Hydroxyzine HCl (Hydroxyzine Hcl 25 Mg Tablet) 25 mg PO Q6H PRN PRN Reason: Anxiety Last Admin: 01/10/23 22:26 Dose: 25 mg Lidocaine (Lidocaine 4 % Patch Adh..Patch) 1 patch TRANSDERMA DAILY [facility]; Protocol Last Admin: 01/11/23 08:59 Dose: 1 patch Magnesium Hydroxide (Milk Of Magnesia 30 Ml Oral.Susp) 30 ml PO DAILY PRN PRN Reason: Constipation Metformin HCl (Metformin Hcl 1,000 Mg Tablet) 1,000 mg PO BID [facility] Last Admin: 01/11/23 08:59 Dose: 1,000 mg Naproxen (Naproxen 250 Mg Tablet) 500 mg PO BID PRN PRN Reason: Pain Last Admin: 01/09/23 22:13 Dose: 500 mg Nicotine Polacrilex (Nicotine Polacrilex 2 Mg Gum) 4 mg BUCCAL Q2H PRN PRN Reason: Nicotine Cravings Ondansetron HCl (Ondansetron Odt 4 Mg Tab.Rapdis) 4 mg TRANSLINGU Q8H PRN PRN Reason: Nausea Propranolol HCl (Propranolol Hcl 10 Mg Tablet) 10 mg PO BID PRN; Protocol PRN Reason: chest pain / anxiety Last Admin: 01/08/23 21:05 Dose: 10 mg Sertraline HCl (Sertraline Hcl 100 Mg Tablet) 100 mg PO DAILY [facility] Last Admin: 01/11/23 09:00 Dose: 100 mg Simethicone (Simethicone 80 Mg Tab.Chew) 80 mg PO QIDWMHS [facility] Last Admin: 01/11/23 08:59 Dose: 80 mg Testosterone Cypionate (Testosterone Cypionate 200 Mg/1 Ml Vial) 100 mg IM Th [facility] Last Admin: 01/11/23 10:08 Dose: 100 mg Trazodone HCl (Trazodone Hcl 50 Mg Tablet) 50 mg PO BEDTIME MRX1 PRN PRN Reason: Insomnia Last Admin: 01/10/23 22:26 Dose: 50 mg Allergies Allergies Allergy/AdvReac Type Severity Reaction Status Date / Time No Known Allergies Allergy Verified 12/31/22 13:38 [No Known Allergies*] Assessment & Plan Assessment & Plan (1) MDD (major depressive disorder), recurrent episode, severe: Status: Acute Code(s): F33.2 - Major depressive disorder, recurrent severe without psychotic features Plan Mr. Freeman is a 52 year-old male with hx of MDD. 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 Pt reports increasingly more depressed, hopeless, anhedonia, low energy levels, poor appetite. He currently denies any plan or intent to harm himself but worries if depression untreated he will again become suicidal. He reports some guilt over suicide attempt and effect on his family. No clear triggers to his depression as he reports his life was perfect. He reports OD on opioid was suicide attempt. He denies any cravings to use substances. PLAN 1. Admit to M3, 15 minutes checks, CV 2. Continue current medications. Sertraline increase to 100mg po daily on 01/07, abilify 5mg po daily. 3. Obtain collateral information 4. Aftercare planning. 01/10 continue tx. 01/11 continue tx. Plan to dc on 01/12. Reason for continued inpatient stay Substantial Risk for: inability to function Time Spent With Patient Time: Total time managing care of this patient today ____ minutes.
[2023-01-11 10:54] VITALS: BMI 28.2
[2023-01-11 13:09] VITALS: BP 140/85; PULSE 106; RESP 18; O2SAT 96
[2023-01-11] MEDS: Magnesium Hydrox/Alum Hydrox 30 ML ORAL.SUSP PO (16:27)
[2023-01-11] MEDS: Atorvastatin Calcium 80 MG TABLET PO (21:12)
[2023-01-11] MEDS: traZODone HCL 50 MG TABLET PO (21:13)
[2023-01-11] MEDS: hydrOXYzine HCL 25 MG TABLET PO (21:13)
[2023-01-11 21:25] VITALS: BP 134/89; PULSE 97; RESP 18; TEMP 36.6; O2SAT 96
--- NOTE | 2023-01-12 07:29 | PM.PSYDC ---
DS: Providers Provider Date of Service: 01/09/23 Date of admission: 01/08/23 15:39 Primary care physician: Nonstaff Physician Consults: 01/09/23 15:46 Consult to Hospitalist Routine Comment: Consulting Provider: Hospitalist Reason For Exam: left leg pain DS: Diagnosis Discharge Diagnosis (1) MDD (major depressive disorder), recurrent episode, severe: Status: Acute DS: Medications Discharge Medications Home Medications: Home Medications Medication Instructions Recorded Confirmed naproxen sodium 220 mg tablet 440 mg PO BID PRN Pain 12/31/22 01/06/23 (Aleve) rosuvastatin 20 mg tablet 20 mg PO BEDTIME 12/31/22 01/06/23 Previous Rx's Medication Instructions Recorded diltiazem HCl 30 mg tablet 30 mg PO QID #120 tabs 01/05/23 apixaban 5 mg tablet (Eliquis) 5 mg PO BID #60 tabs 01/12/23 aripiprazole 5 mg tablet (Abilify) 5 mg PO DAILY #30 tabs 01/12/23 famotidine 20 mg tablet 20 mg PO DAILY #30 tabs 01/12/23 fenofibrate 160 mg tablet 160 mg PO DAILY #30 tabs 01/12/23 lidocaine 4 % topical patch 1 patch transdermal DAILY #30 ea 01/12/23 (Lidocaine Pain Relief) metformin 1,000 mg tablet 1,000 mg PO BID #60 tabs 01/12/23 sertraline 100 mg tablet 100 mg PO DAILY #30 tabs 01/12/23 simethicone 80 mg chewable tablet 80 mg PO QIDWMHS #60 tabs 01/12/23 (Gas Relief (simethicone)) testosterone cypionate 200 mg/mL 100 mg (0.5 mL) IM Th #1 ea 01/12/23 intramuscular kit trazodone 50 mg tablet 50 mg PO BEDTIME PRN Insomnia #30 01/12/23 tabs Mental Status Exam Mental Status Exam Narrative: Appearance:wearing hospital gown, fair hygiene, in NAD Behavior:cooperative Speech:clear, regular response rate, soft, spontaneous Psychomotor:no retardation or agitation noted Thought process: tangential Thought content: feeling more hopeful, less depressed Mood: better Affect: brighter SI:none HI: none VH/AH: none Delusions: none Insight/judgment: fair x 2 Memory/cog: alert, oriented x 3. Data Data Completed and Pending Completed studies during hospitalization [Text1]: 01/06/23 01/06/23 01/06/23 12:43 12:43 12:43 WBC 11.0 H RBC 5.53 D Hgb 16.8 D Hct 47.9 D MCV 86.6 MCH 30.4 MCHC 35.1 RDW 11.9 Plt Count 242 D MPV 10.1 Immature Gran % (Auto) Cancelled Neut % (Auto) Cancelled Lymph % (Auto) Cancelled [place] % (Auto) Cancelled Eos % (Auto) Cancelled Baso % (Auto) Cancelled Lymph # (Auto) Cancelled [place] # (Auto) Cancelled Eos # (Auto) Cancelled Baso # (Auto) Cancelled Abs Immat Gran (auto) Cancelled Absolute Neuts (auto) Cancelled Absolute Nucleated RBC 0.000 Nucleated RBC % (auto) 0.0 Neutrophils % (Manual) 61 Band Neutrophils % 1 L Lymphocytes % (Manual) 30 Monocytes % (Manual) 4 Eosinophils % (Manual) 2 Metamyelocytes % 2 Abs Neuts (Manual) 6.8 Lymphocytes # (Manual) 3.3 Monocytes # (Manual) 0.4 Eosinophils # (Manual) 0.2 Metamyelocytes # 0.2 Platelet Estimate NORMAL Plt Morphology Comment NORMAL RBC Morphology NORMAL Sodium 139 Potassium 4.0 Chloride 103 Carbon Dioxide 22 Anion Gap 18 BUN 27 H Creatinine 1.10 Estim Creat Clear Calc 84.4 Estimated GFR > 60 POC Glucose Random Glucose 199 H Fasting Glucose Estimat Average Glucose Hemoglobin A1c % Calcium 9.9 Magnesium 2.2 Total Bilirubin 0.6 AST 27 ALT 43 H Alkaline Phosphatase 64 Troponin I High Sens C-Reactive Protein B-Natriuretic Peptide Total Protein 7.5 Albumin 4.4 Triglycerides Cholesterol LDL Cholesterol, Calc HDL Cholesterol Lipase Vitamin B12 Folate TSH Free T4 Urine Color Urine Appearance Urine pH Ur Specific [place] Urine Protein Urine Glucose (UA) Urine Ketones Urine Blood Urine Nitrite Ur Leukocyte Esterase Urine RBC Urine WBC Ur Squamous Epith Cells Urine Bacteria Hyaline Casts Salicylates < 5.0 L Urine Opiates Screen Urine Fentanyl Screen Acetaminophen < 17 Ur Barbiturates Screen Ur Phencyclidine Scrn Ur Amphetamines Screen U Benzodiazepines Scrn Urine Cocaine Screen U Marijuana (THC) Screen Ethyl Alcohol RUBIN Screen RUBIN Titer RUBIN Titer 2 RUBIN Titer 3 RUBIN Pattern RUBIN Pattern 2 RUBIN Pattern 3 COVID-19 (JALEN) Negative COVID-19 Clin Com See Note 01/06/23 01/06/23 01/06/23 12:43 12:43 12:43 WBC RBC Hgb Hct MCV MCH MCHC RDW Plt Count MPV Immature Gran % (Auto) Neut % (Auto) Lymph % (Auto) [place] % (Auto) Eos % (Auto) Baso % (Auto) Lymph # (Auto) [place] # (Auto) Eos # (Auto) Baso # (Auto) Abs Immat Gran (auto) Absolute Neuts (auto) Absolute Nucleated RBC Nucleated RBC % (auto) Neutrophils % (Manual) Band Neutrophils % Lymphocytes % (Manual) Monocytes % (Manual) Eosinophils % (Manual) Metamyelocytes % Abs Neuts (Manual) Lymphocytes # (Manual) Monocytes # (Manual) Eosinophils # (Manual) Metamyelocytes # Platelet Estimate Plt Morphology Comment RBC Morphology Sodium Potassium Chloride Carbon Dioxide Anion Gap BUN Creatinine Estim Creat Clear Calc Estimated GFR POC Glucose Random Glucose Fasting Glucose Estimat Average Glucose Hemoglobin A1c % Calcium Magnesium Total Bilirubin AST ALT Alkaline Phosphatase Troponin I High Sens C-Reactive Protein B-Natriuretic Peptide Total Protein Albumin Triglycerides Cholesterol LDL Cholesterol, Calc HDL Cholesterol Lipase Vitamin B12 Folate TSH Free T4 Urine Color Yellow Urine Appearance Clear Urine pH 6.0 Ur Specific [place] >= 1.030 H Urine Protein Negative Urine Glucose (UA) >=1000 H Urine Ketones Negative Urine Blood Negative Urine Nitrite Negative Ur Leukocyte Esterase Negative Urine RBC 0-2 Urine WBC 0-5 Ur Squamous Epith Cells 0-2 Urine Bacteria None Seen Hyaline Casts 0-2 Salicylates Urine Opiates Screen Not Detected Urine Fentanyl Screen POSITIVE H Acetaminophen Ur Barbiturates Screen POSITIVE H Ur Phencyclidine Scrn Not Detected Ur Amphetamines Screen Not Detected U Benzodiazepines Scrn Not Detected Urine Cocaine Screen Not Detected U Marijuana (THC) Screen Not Detected Ethyl Alcohol < 10 RUBIN Screen RUBIN Titer RUBIN Titer 2 RUBIN Titer 3 RUBIN Pattern RUBIN Pattern 2 RUBIN Pattern 3 COVID-19 (JALEN) COVID-19 Rheonix 01/06/23 01/06/23 01/06/23 12:43 14:31 20:01 WBC RBC Hgb Hct MCV MCH MCHC RDW Plt Count MPV Immature Gran % (Auto) Neut % (Auto) Lymph % (Auto) [place] % (Auto) Eos % (Auto) Baso % (Auto) Lymph # (Auto) [place] # (Auto) Eos # (Auto) Baso # (Auto) Abs Immat Gran (auto) Absolute Neuts (auto) Absolute Nucleated RBC Nucleated RBC % (auto) Neutrophils % (Manual) Band Neutrophils % Lymphocytes % (Manual) Monocytes % (Manual) Eosinophils % (Manual) Metamyelocytes % Abs Neuts (Manual) Lymphocytes # (Manual) Monocytes # (Manual) Eosinophils # (Manual) Metamyelocytes # Platelet Estimate Plt Morphology Comment RBC Morphology Sodium Potassium Chloride Carbon Dioxide Anion Gap BUN Creatinine Estim Creat Clear Calc Estimated GFR POC Glucose Random Glucose Fasting Glucose Estimat Average Glucose Hemoglobin A1c % Calcium Magnesium Total Bilirubin AST ALT Alkaline Phosphatase Troponin I High Sens < 2.7 D < 2.7 C-Reactive Protein B-Natriuretic Peptide < 10 Total Protein Albumin Triglycerides Cholesterol LDL Cholesterol, Calc HDL Cholesterol Lipase Vitamin B12 Folate TSH Free T4 Urine Color Urine Appearance Urine pH Ur Specific [place] Urine Protein Urine Glucose (UA) Urine Ketones Urine Blood Urine Nitrite Ur Leukocyte Esterase Urine RBC Urine WBC Ur Squamous Epith Cells Urine Bacteria Hyaline Casts Salicylates Urine Opiates Screen Urine Fentanyl Screen Acetaminophen Ur Barbiturates Screen Ur Phencyclidine Scrn Ur Amphetamines Screen U Benzodiazepines Scrn Urine Cocaine Screen U Marijuana (THC) Screen Ethyl Alcohol RUBIN Screen RUBIN Titer RUBIN Titer 2 RUBIN Titer 3 RUBIN Pattern RUBIN Pattern 2 RUBIN Pattern 3 COVID-19 (JALEN) COVID-19 Clin Com 01/09/23 01/09/23 01/09/23 08:20 08:28 08:28 WBC RBC Hgb Hct MCV MCH MCHC RDW Plt Count MPV Immature Gran % (Auto) Neut % (Auto) Lymph % (Auto) [place] % (Auto) Eos % (Auto) Baso % (Auto) Lymph # (Auto) [place] # (Auto) Eos # (Auto) Baso # (Auto) Abs Immat Gran (auto) Absolute Neuts (auto) Absolute Nucleated RBC Nucleated RBC % (auto) Neutrophils % (Manual) Band Neutrophils % Lymphocytes % (Manual) Monocytes % (Manual) Eosinophils % (Manual) Metamyelocytes % Abs Neuts (Manual) Lymphocytes # (Manual) Monocytes # (Manual) Eosinophils # (Manual) Metamyelocytes # Platelet Estimate Plt Morphology Comment RBC Morphology Sodium 136 Potassium 4.3 Chloride 101 Carbon Dioxide 21 L Anion Gap 18 BUN 20 H Creatinine 1.17 Estim Creat Clear Calc 79.4 Estimated GFR > 60 POC Glucose 194 H Random Glucose Fasting Glucose 180 H Estimat Average Glucose 146 Hemoglobin A1c % 6.7 Calcium 9.5 Magnesium Total Bilirubin 0.6 AST 19 ALT 19 Alkaline Phosphatase 61 Troponin I High Sens C-Reactive Protein B-Natriuretic Peptide Total Protein 7.0 Albumin 4.0 Triglycerides 1374 Cholesterol 188 LDL Cholesterol, Calc TNP HDL Cholesterol 18 Lipase 48 Vitamin B12 Cancelled Folate Cancelled TSH 2.06 Free T4 0.93 Urine Color Urine Appearance Urine pH Ur Specific [place] Urine Protein Urine Glucose (UA) Urine Ketones Urine Blood Urine Nitrite Ur Leukocyte Esterase Urine RBC Urine WBC Ur Squamous Epith Cells Urine Bacteria Hyaline Casts Salicylates Urine Opiates Screen Urine Fentanyl Screen Acetaminophen Ur Barbiturates Screen Ur Phencyclidine Scrn Ur Amphetamines Screen U Benzodiazepines Scrn Urine Cocaine Screen U Marijuana (THC) Screen Ethyl Alcohol RUBIN Screen RUBIN Titer RUBIN Titer 2 RUBIN Titer 3 RUBIN Pattern RUBIN Pattern 2 RUBIN Pattern 3 COVID-19 (JALEN) COVID-19 Clin [facility] 01/09/23 01/09/23 01/09/23 08:28 16:49 16:49 WBC 9.0 RBC 5.35 Hgb 16.6 Hct 45.8 MCV 85.6 MCH 31.0 MCHC 36.2 H RDW 11.8 Plt Count 223 MPV 10.1 Immature Gran % (Auto) 3.1 H Neut % (Auto) 55.4 Lymph % (Auto) 32.0 [place] % (Auto) 6.8 Eos % (Auto) 2.1 Baso % (Auto) 0.6 Lymph # (Auto) 2.9 [place] # (Auto) 0.6 Eos # (Auto) 0.2 Baso # (Auto) 0.1 Abs Immat Gran (auto) 0.28 H Absolute Neuts (auto) 5.0 Absolute Nucleated RBC 0.000 Nucleated RBC % (auto) 0.0 Neutrophils % (Manual) Band Neutrophils % Lymphocytes % (Manual) Monocytes % (Manual) Eosinophils % (Manual) Metamyelocytes % Abs Neuts (Manual) Lymphocytes # (Manual) Monocytes # (Manual) Eosinophils # (Manual) Metamyelocytes # Platelet Estimate Plt Morphology Comment RBC Morphology Sodium 135 Potassium 4.4 Chloride 101 Carbon Dioxide 17 L Anion Gap 21 H BUN 22 H Creatinine 1.15 Estim Creat Clear Calc 80.7 Estimated GFR > 60 POC Glucose Random Glucose 164 H Fasting Glucose Estimat Average Glucose Hemoglobin A1c % Calcium 9.6 Magnesium Total Bilirubin 0.6 AST 20 ALT 22 Alkaline Phosphatase 75 Troponin I High Sens C-Reactive Protein B-Natriuretic Peptide Total Protein 7.4 Albumin 4.1 Triglycerides Cholesterol LDL Cholesterol, Calc HDL Cholesterol Lipase 61 Vitamin B12 534 Folate 15.7 TSH Free T4 Urine Color Urine Appearance Urine pH Ur Specific [place] Urine Protein Urine Glucose (UA) Urine Ketones Urine Blood Urine Nitrite Ur Leukocyte Esterase Urine RBC Urine WBC Ur Squamous Epith Cells Urine Bacteria Hyaline Casts Salicylates Urine Opiates Screen Urine Fentanyl Screen Acetaminophen Ur Barbiturates Screen Ur Phencyclidine Scrn Ur Amphetamines Screen U Benzodiazepines Scrn Urine Cocaine Screen U Marijuana (THC) Screen Ethyl Alcohol RUBIN Screen RUBIN Titer RUBIN Titer 2 RUBIN Titer 3 RUBIN Pattern RUBIN Pattern 2 RUBIN Pattern 3 COVID-19 (JALEN) COVID-19 Clin [facility] 01/10/23 01/10/23 01/10/23 08:44 19:03 19:03 WBC RBC Hgb Hct MCV MCH MCHC RDW Plt Count MPV Immature Gran % (Auto) Neut % (Auto) Lymph % (Auto) [place] % (Auto) Eos % (Auto) Baso % (Auto) Lymph # (Auto) [place] # (Auto) Eos # (Auto) Baso # (Auto) Abs Immat Gran (auto) Absolute Neuts (auto) Absolute Nucleated RBC Nucleated RBC % (auto) Neutrophils % (Manual) Band Neutrophils % Lymphocytes % (Manual) Monocytes % (Manual) Eosinophils % (Manual) Metamyelocytes % Abs Neuts (Manual) Lymphocytes # (Manual) Monocytes # (Manual) Eosinophils # (Manual) Metamyelocytes # Platelet Estimate Plt Morphology Comment RBC Morphology Sodium Potassium Chloride Carbon Dioxide Anion Gap BUN Creatinine Estim Creat Clear Calc Estimated GFR POC Glucose 266 H Random Glucose Fasting Glucose Estimat Average Glucose Hemoglobin A1c % Calcium Magnesium Total Bilirubin AST ALT Alkaline Phosphatase Troponin I High Sens C-Reactive Protein < 0.10 B-Natriuretic Peptide Total Protein Albumin Triglycerides Cholesterol LDL Cholesterol, Calc HDL Cholesterol Lipase Vitamin B12 Folate TSH Free T4 Urine Color Urine Appearance Urine pH Ur Specific [place] Urine Protein Urine Glucose (UA) Urine Ketones Urine Blood Urine Nitrite Ur Leukocyte Esterase Urine RBC Urine WBC Ur Squamous Epith Cells Urine Bacteria Hyaline Casts Salicylates Urine Opiates Screen Urine Fentanyl Screen Acetaminophen Ur Barbiturates Screen Ur Phencyclidine Scrn Ur Amphetamines Screen U Benzodiazepines Scrn Urine Cocaine Screen U Marijuana (THC) Screen Ethyl Alcohol RUBIN Screen Pending RUBIN Titer Pending RUBIN Titer 2 Pending RUBIN Titer 3 Pending RUBIN Pattern Pending RUBIN Pattern 2 Pending RUBIN Pattern 3 Pending COVID-19 (JALEN) COVID-19 Clin Com 01/11/23 09:19 WBC RBC Hgb Hct MCV MCH MCHC RDW Plt Count MPV Immature Gran % (Auto) Neut % (Auto) Lymph % (Auto) [place] % (Auto) Eos % (Auto) Baso % (Auto) Lymph # (Auto) [place] # (Auto) Eos # (Auto) Baso # (Auto) Abs Immat Gran (auto) Absolute Neuts (auto) Absolute Nucleated RBC Nucleated RBC % (auto) Neutrophils % (Manual) Band Neutrophils % Lymphocytes % (Manual) Monocytes % (Manual) Eosinophils % (Manual) Metamyelocytes % Abs Neuts (Manual) Lymphocytes # (Manual) Monocytes # (Manual) Eosinophils # (Manual) Metamyelocytes # Platelet Estimate Plt Morphology Comment RBC Morphology Sodium Potassium Chloride Carbon Dioxide Anion Gap BUN Creatinine Estim Creat Clear Calc Estimated GFR POC Glucose 180 H Random Glucose Fasting Glucose Estimat Average Glucose Hemoglobin A1c % Calcium Magnesium Total Bilirubin AST ALT Alkaline Phosphatase Troponin I High Sens C-Reactive Protein B-Natriuretic Peptide Total Protein Albumin Triglycerides Cholesterol LDL Cholesterol, Calc HDL Cholesterol Lipase Vitamin B12 Folate TSH Free T4 Urine Color Urine Appearance Urine pH Ur Specific [place] Urine Protein Urine Glucose (UA) Urine Ketones Urine Blood Urine Nitrite Ur Leukocyte Esterase Urine RBC Urine WBC Ur Squamous Epith Cells Urine Bacteria Hyaline Casts Salicylates Urine Opiates Screen Urine Fentanyl Screen Acetaminophen Ur Barbiturates Screen Ur Phencyclidine Scrn Ur Amphetamines Screen U Benzodiazepines Scrn Urine Cocaine Screen U Marijuana (THC) Screen Ethyl Alcohol RUBIN Screen RUBIN Titer RUBIN Titer 2 RUBIN Titer 3 RUBIN Pattern RUBIN Pattern 2 RUBIN Pattern 3 COVID-19 (JALEN) COVID-19 Clin Com Imaging Diagnostic Imaging Impressions Chest X-Ray 01/06/23 14:07 IMPRESSION: No acute cardiopulmonary process. Femur X-Ray 01/09/23 16:39 IMPRESSION: No acute fractures or malalignment. DS: Summary Hospital Course Hospital Course: Mr. 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 He was medically admitted for afiv with RVR and acute respiratory failure. He was medically discharged from [facility] on 01/05, pt self presented to [facility] ED on 01/06 reporting increased depression,intermittent suicidal ideation. Note that patient was not seen by psychiatry or care team during admission to medicine. In the ED, pt reports feeling depressed for several months. He endorses anhedonia, hopeless, suicidal ideation, poor sleep, nightmares. He reports out of body experiences, seeing himself on the floor. He reports OD was with intent to end his life and he continues to feel profoundly depressed. He reports he does not know trigger of depression. 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 He reports his life was seemingly perfect. However, he reports depression has worsened in several months. He does appear with some cognitive impairment in that recalling of information about his medical/psych hx of blurry. His thought process is repetitive at times and has some delay in response. He reports he has been on sertraline for about 2 months. He recently started this medication in [place]. On the unit, pt continues to report that he feels very depressed, fatigued, hopeless. He reports on going headaches which he reports are new. He denies any plan or intent to harm himself or others. Past Psychiatric History: [facility]: [facility] [address] [facility] OP: none Past trial: sertraline Medical Evaluation Reviewed: Yes HOSPITAL COURSE On the unit, pt was admitted on a CV and placed on 15 minutes checks for safety. Pt was continued on sertraline which was increased to 100mg po daily while he was in the ED. He was continued on abilify 5mg po daily to boost effect of antidepressant. His affect gradually presented as brighter. He reported less depressed mood, feeling more hopeful, denied suicidal ideation. He was sleeping through the night. His appetite improved. He was more visible on the unit and attended assigned groups. Status at Discharge Cognitive/behavioral status at discharge: Pt with brighter affect. No SI/HI. No VH/AH. Sleep and appetite improved. Less depressed mood, increase sense of hopefulness. No signs of aggression towards self or others. Functional status at discharge: independent ambulation Overall status at discharge: patient is progressing back to baseline Time Spent with Patient Time attestation: Total time managing care of this patient today __30__ minutes. Time spent: Greater than 30 minutes Discharge Plan Discharge Anticipated Discharge Date/Time: 06/16/23 07:16 Patient Disposition: Home, Self-Care Discharge Diagnosis: MDD, recurrent, severe Referrals: Estephania Ybarra (Therapy) [Other] - 1 Week (You have been assigned to this therapist. She will reach out to you to schedule an appointment. If you do not hear from her, please call the phone number listed above) Matthew Collazo (Psychiatry) [Other] - 02/14/23 10:00 am (Your appointment will take place over the phone -Please reach out to the number listed above if you have any questions or concerns. ) Ulises Blood PA-C [Physician Body Straightener] - 1 Week (Call the office with your updated insurance information. They will make you an appointment.) Discharge Medications: New Eliquis 5 mg Tablet 5 mg PO BID Qty: 60 0RF trazodone 50 mg Tablet 50 mg PO BEDTIME PRN (Reason: Insomnia) Qty: 30 0RF sertraline 100 mg Tablet 100 mg PO DAILY Qty: 30 0RF famotidine 20 mg Tablet 20 mg PO DAILY Qty: 30 0RF simethicone [Gas Relief (simethicone)] 80 mg Tablet,Chewable 80 mg PO QIDWMHS Qty: 60 0RF aripiprazole [Abilify] 5 mg Tablet 5 mg PO DAILY Qty: 30 0RF fenofibrate 160 mg Tablet 160 mg PO DAILY Qty: 30 0RF metformin 1,000 mg Tablet 1,000 mg PO BID Qty: 60 0RF lidocaine [Lidocaine Pain Relief] 4 % Adhesive Patch,Medicated 1 patch transdermal DAILY Qty: 30 0RF Protocol: Apply to: Apply to: left thigh testosterone cypionate 200 mg/mL kit 100 mg IM QWEEK 30 Days Qty: 2.5 0RF Rx Instructions: Continued naproxen sodium [Aleve] 220 mg Tablet 440 mg PO BID PRN (Reason: Pain) rosuvastatin 20 mg tablet 20 mg PO BEDTIME diltiazem HCl 30 mg Tablet 30 mg PO QID 30 Days Qty: 120 0RF Protocol: Hold for SBP/HR < HOLD for SBP < : 90 HOLD for HR < : 60 Discontinued propranolol 10 mg tablet 10 mg PO BID PRN (Reason: chest pain / anxiety) metformin 1,000 mg tablet 1,000 mg PO BID fenofibrate 54 mg tablet 54 mg PO DAILY testosterone cypionate 200 mg/mL Kit 100 mg IM QWEEK Rx Instructions: Inject into shoulder, thigh, or buttocks Eliquis 5 mg Tablet 5 mg PO BID Qty: 60 0RF sertraline 50 mg Tablet 75 mg PO DAILY Qty: 30 3RF Discharge Orders: Discharge Order (Routine); Ordered 01/12/23 Ordered By: Heaven Ochoa Diet: Diabetic diet Activity on Discharge: As tolerated Stand Alone Forms: Patient Portal Discharge page, Community Support Care Plan Goals: 1. Maintain mood 2. No SI/HI 3. Harm reduction give narcan on discharge Health Concerns: Follow up with PCP Plan of Treatment: 1. Take medications as prescribed 2. Go to nearest ED or call 911 in event of emergency Assessment: Pt with brighter, non labile affect. No SI/HI. Future oriented. Sleeping and eating well. Patient Instructions: A-fib (Atrial Fibrillation) (GEN), Diabetes and Exercise (GEN) Discharge Date/Time: 01/12/23 12:35
[2023-01-12 08:33] LABS: Glucose, Whole Blood 256 mg/dL (60-115)
[2023-01-12] MEDS: Lidocaine 4 % Patch ADH..PATCH 1 PATCH TRANSDERMA (08:35)
[2023-01-12] MEDS: Simethicone 80 MG TAB.CHEW PO ×2 (08:37→12:22)
[2023-01-12] MEDS: Apixaban 5 MG TABLET PO (08:37)
[2023-01-12] MEDS: Famotidine 20 MG TABLET PO (08:37)
[2023-01-12] MEDS: metFORMIN HCl 1,000 MG TABLET 1000 MG PO (08:37)
[2023-01-12] MEDS: Sertraline HCL 100 MG TABLET PO (08:37)
[2023-01-12] MEDS: ARIPiprazole 5 MG TABLET PO (08:37)
[2023-01-12] MEDS: dilTIAZem HCL 30 MG TABLET PO ×2 (08:37→12:22)
[2023-01-12] MEDS: Fenofibrate 160 MG TABLET PO (08:37)
[2023-01-12] MEDS: Naloxone HCl Nasal TAKE HOME 4 MG SPRAY 8 MG NOSTRILALT (08:44)
[2023-01-16 09:10] LABS: Anti Nuclear Antibody Screen NEGATIVE (NEGATIVE)
== END 2023-01-12 12:35 | disposition home or self-care (01) | DRG 751 ==
LOC: HO.ED 15:05 → HO.PADLT16 01-08 15:47
PROVIDERS: Nurse Practitioner Family; Physician Assistant; Admitting Provider Psychiatry & Neurology Psychiatry; Emergency Provider Emergency Medicine; Visit Provider Social Worker
DX: F33.2 Major depressive disorder, recurrent severe without psychotic features (principal); R45.851 Suicidal ideations; E11.9 Type 2 diabetes mellitus without complications; E78.1 Pure hyperglyceridemia; Z20.822 Contact with and (suspected) exposure to COVID-19; Z87.891 Personal history of nicotine dependence; Z91.51 Personal history of suicidal behavior; Z79.01 Long term (current) use of anticoagulants; Z79.84 Long term (current) use of oral hypoglycemic drugs; Z79.899 Other long term (current) drug therapy
CPT/HCPCS: 36415; 71045; 73551; 80053; 80061; 80143; 80179; 80307; 81001; 81003; 82607; 82746; 82947; 83036; 83690; 83735; 83880; 84439; 84443; 84484; 85007; 85025; 85027; 86038; 86140; 87635; 93005; 99285; J1071; S9485

== ENCOUNTER 2023-03-10 13:24 | Emergency (ER) | payer OTHER, SELFPAY ==
--- NOTE | 2023-03-10 14:58 | ED.GENADULT ---
HPI - General Adult General Chief complaint: General Medical Stated complaint: covid symptoms Time Seen by Provider: 03/10/23 15:20 Related Data Home Medications Medication Instructions Recorded Confirmed naproxen sodium 220 mg tablet 440 mg PO BID PRN Pain 12/31/22 01/06/23 (Aleve) rosuvastatin 20 mg tablet 20 mg PO BEDTIME 12/31/22 01/06/23 Previous Rx's Medication Instructions Recorded apixaban 5 mg tablet (Eliquis) 5 mg PO BID #60 tabs 01/12/23 aripiprazole 5 mg tablet (Abilify) 5 mg PO DAILY #30 tabs 01/12/23 diltiazem HCl 30 mg tablet 30 mg PO QID 30 days #120 tabs 01/12/23 famotidine 20 mg tablet 20 mg PO DAILY #30 tabs 01/12/23 fenofibrate 160 mg tablet 160 mg PO DAILY #30 tabs 01/12/23 lidocaine 4 % topical patch 1 patch transdermal DAILY #30 ea 01/12/23 (Lidocaine Pain Relief) metformin 1,000 mg tablet 1,000 mg PO BID #60 tabs 01/12/23 sertraline 100 mg tablet 100 mg PO DAILY #30 tabs 01/12/23 simethicone 80 mg chewable tablet 80 mg PO QIDWMHS #60 tabs 01/12/23 (Gas Relief (simethicone)) testosterone cypionate 200 mg/mL 100 mg (0.5 mL) IM QWEEK 30 days 01/12/23 intramuscular kit #2.5 ea trazodone 50 mg tablet 50 mg PO BEDTIME PRN Insomnia #30 01/12/23 tabs Allergies Allergy/AdvReac Type Severity Reaction Status Date / Time No Known Allergies Allergy Verified 03/10/23 15:06 [No Known Allergies*] [facility] Past Medical History Medical History (Updated 03/10/23 @ 16:15 by MISHEL Garner) Diabetes Drug overdose MDD (major depressive disorder), recurrent episode, severe PAF (paroxysmal atrial fibrillation) Psychiatric pseudoseizure Substance abuse Social History Social History Household Members: None Household Members Other:: CURRENTLY LIVING WITH MOTHER, TRANSFERRING FROM [place] Housing: Apartment Housing Other:: Formally lived in [place] Do you presently have visiting nurse or other home services: No Unable to assess alcohol history related to: Unknown Alcohol intake: former Patient Tobacco Use Status: Former Tobacco user Quit Date: 3 months ago Tobacco use type: Cigarette Cigarette Packs Per Day: 1 Cigarettes Per Day: 20.0 Years Smoked: 20 Second Hand Smoke Exposure: No Substance Use Type: Heroin service: No Current occupational status: employed Sexual orientation: Straight/Heterosexual Physical Exam ED Vital Signs: Vital Signs - 24 hr 03/10/23 15:06 Temperature 97.5 F Pulse Rate 100 Respiratory Rate 18 Blood Pressure 150/92 H Pulse Oximetry 96 Oxygen Delivery Method Room Air BMI result Body Mass Index 28.1 Course Course Course Narrative: RME- 53 year old male presents for evaluation of a covid test. Denies any symptoms Reevaluation(s) Reevaluation #1: patient eloped prior to full evaluation and treatment or test results Medical Decision Making Lab Data Labs: Lab Results 03/10/23 Range/Units 15:04 COVID-19 (JALEN) Negative (Negative) COVID-19 Clin Com See Note Discharge Plan Discharge Clinical Impression: Close exposure to COVID-19 virus Patient Disposition: Elopement Prescriptions: No Action naproxen sodium [Aleve] 220 mg Tablet 440 mg PO BID PRN (Reason: Pain) rosuvastatin 20 mg tablet 20 mg PO BEDTIME Eliquis 5 mg Tablet 5 mg PO BID Qty: 60 0RF trazodone 50 mg Tablet 50 mg PO BEDTIME PRN (Reason: Insomnia) Qty: 30 0RF sertraline 100 mg Tablet 100 mg PO DAILY Qty: 30 0RF famotidine 20 mg Tablet 20 mg PO DAILY Qty: 30 0RF simethicone [Gas Relief (simethicone)] 80 mg Tablet,Chewable 80 mg PO QIDWMHS Qty: 60 0RF aripiprazole [Abilify] 5 mg Tablet 5 mg PO DAILY Qty: 30 0RF fenofibrate 160 mg Tablet 160 mg PO DAILY Qty: 30 0RF metformin 1,000 mg Tablet 1,000 mg PO BID Qty: 60 0RF lidocaine [Lidocaine Pain Relief] 4 % Adhesive Patch,Medicated 1 patch transdermal DAILY Qty: 30 0RF Protocol: Apply to: Apply to: left thigh testosterone cypionate 200 mg/mL kit 100 mg IM QWEEK 30 Days Qty: 2.5 0RF Rx Instructions: thursdays diltiazem HCl 30 mg Tablet 30 mg PO QID 30 Days Qty: 120 0RF Protocol: Hold for SBP/HR < HOLD for SBP < : 90 HOLD for HR < : 60
[2023-03-10 15:06] VITALS: BP 150/92; PULSE 100; RESP 18; TEMP 36.4; O2SAT 96; BMI 28.1
[2023-03-10 15:40] LABS: COVID-19 Test Negative (Negative); IDNOW Serial# 08D9AD1C
== END 2023-03-10 16:43 | disposition left against medical advice (07) ==
PROVIDERS: Physician Assistant; Emergency Provider Emergency Medicine Emergency Medical Services
DX: Z20.822 Contact with and (suspected) exposure to COVID-19 (principal)
CPT/HCPCS: 87635; 99282